=== PATIENT | male | born 1940 | race Caucasian/White ===

== ENCOUNTER 2022-05-27 00:54 | Inpatient (IN) | payer MEDICARE ==
[2022-05-27] MEDS ORDERED: SODIUM CHLORIDE 0.9% 1,000 ML IV STA (01:30)
[2022-05-27] MEDS ORDERED: ONDANSETRON 4 MG/2 ML VIAL IVP STA (01:34)
[2022-05-27] MEDS ORDERED: LORazepam 2 MG/ML INJ IM STA (01:40)
[2022-05-27] MEDS ORDERED: THIAMINE 100 MG/ML 2 ML VIAL IVP STA (02:01)
--- NOTE | 2022-05-27 02:07 | ED ---
Altered Mental Status HPI - General Chief Complaint: Altered Mental Status Stated Complaint: altered mental status Time Seen by Provider: 05/27/22 01:22 Source: patient, family, EMS, RN notes reviewed Mode of arrival: EMS Limitations: altered mental status - History of Present Illness Initial Comments: This is a combat of 81-year-old male with a history of CVA. He presents to the emergency department today via EMS. Apparently his had to call police. Patient has fallen 3 consecutive days according to spouse. She also states that he supposedly stopped drinking 8 days ago. She states she had a half a beer today. She states for the last 3 nights when he got out of bed he has taken a fall. She states that tonight around midnight she went to check on him after the fall and he was having a hard time speaking. She states this went on for about 1 minute. That then resolved. Patient displayed no focal weakness. She states the patient then became belligerent. Patient has sustained multiple superficial skin tears due to frequent falls and being handcuffed by the police. As I enter the room the patient himself has no complaints. He is not complaining of any pain. Patient denying any chest pain or shortness of breath. No headache. No neck pain. Remainder other review of systems is very limited due to the patient's cognition and agitation. MD Complaint: altered mental status, confusion - Related Data Allergies Allergy/AdvReac Type Severity Reaction Status Date / Time No Known Allergies Allergy Verified 05/27/22 01:45 Review of Systems ROS Statement: Those systems with pertinent positive or pertinent negative responses have been documented in the HPI. ROS Other: All systems not noted in ROS Statement are negative. Past Medical History Past Medical History: GERD/Reflux, Hyperlipidemia, Hypertension History of Any Multi-Drug Resistant Organisms: None Reported Past Surgical History: Heart Catheterization With Stent Past Psychological History: No Psychological Hx Reported Smoking Status: Never smoker Past Alcohol Use History: Daily Past Drug Use History: None Reported General Exam - General Exam Comments Initial Comments: Patient appears to be alert. Patient answering questions. Orientation difficult to ascertain. Patient appears to have no focal neurologic deficits. Cranial nerves II through XII are intact. NIH score is 0. Does not appear to be ill or toxic. Patient does become combative at times. Limitations: altered mental status General appearance: alert, other (Agitated, combative) Head exam: Present: atraumatic, normocephalic, normal inspection Eye exam: Present: normal appearance, PERRL, EOMI. Absent: scleral icterus, conjunctival injection, periorbital swelling ENT exam: Present: normal exam, normal oropharynx, mucous membranes moist, normal external ear exam. Absent: mucous membranes dry Neck exam: Present: normal inspection. Absent: tenderness, meningismus, lymphadenopathy Respiratory exam: Present: normal lung sounds bilaterally. Absent: respiratory distress, wheezes, rales, rhonchi, stridor, chest wall tenderness, accessory muscle use, decreased breath sounds, prolonged expiratory Cardiovascular Exam: Present: regular rate, normal rhythm, normal heart sounds. Absent: systolic murmur, diastolic murmur, rubs, gallop, clicks GI/Abdominal exam: Present: soft, normal bowel sounds. Absent: distended, tenderness, guarding, rebound, rigid Extremities exam: Present: full ROM, normal capillary refill, other (Full range of motion all major joints. Full muscle strength on major muscle groups.). Absent: normal inspection (Multiple superficial skin tears noted to both upper extremities.), tenderness, pedal edema, joint swelling, calf tenderness Back exam: Present: normal inspection Neurological exam: Present: alert, CN II-XII intact, other (Combated) Psychiatric exam: Present: agitated Skin exam: Present: warm, dry, normal color. Absent: intact (Multiple skin tears noted), rash Course Vital Signs 05/27/22 05/27/22 05/27/22 01:19 02:25 03:00 Temperature 97.8 F Pulse Rate 91 74 78 Respiratory 19 Rate Blood Pressure 144/79 163/90 185/103 O2 Sat by Pulse 98 96 Oximetry - Reevaluation(s) Reevaluation #1: 05/27/22 03:21 Medical record is reviewed Patient much more calm after 2 mg of Ativan and Haldol 5 mg IM. Note that the patient's troponin was 0.038. We'll run serial troponins. EKG shows no evidence of acute ST elevation or depression. EKG was read by the ED attending physician. There is no comparison study. - Consultations Consultation #1: Case discussed in detail with Anna Irvin from [facility]. Patient admitted to the group with cardiology consultation. I believe the crux of the patient symptomology is related to alcohol withdrawal delirium. Patient did have a slightly elevated troponin. We'll run serial troponins, patient has a rhythm disturbance and EKG. We'll have the patient see his bologna lacer, Dr. Black. Medical Decision Making - Medical Decision Making Patient may be having some level alcohol withdrawal. Patient has a notable generalized tremor noted. No focal neurologic deficits. Patient becomes agitated at times. Patient will require CT scanning of his brain and cervical spine. Patient had some difficulty with speech after a fall. This does raise a suspicion of concussion. Does not sound like the patient had any focal neurologic deficits. Of course brief TIA is within the differential. Alcoholic encephalopathy also within the differential. Thiamine ordered. According to the patient has had tactile disturbances in the hands and feet going on for quite some time. A complete CIWA is difficult to ascertain given the patient's condition. However even given that, the patient scores 11. Patient will be admitted for alcohol withdrawal delirium. I do not believe the patient has any evidence of acute neurologic deficit. Patient's NIH was essentially 0. Patient stopped drinking alcohol 8 days ago but it sounds like he's been intermittently sneaking alcohol. admits that she saw him drink a half a beer yesterday but states that he may have been drinking previous to this. Note that the patient alcohol is less than 10 here today. Patient reported on the alcohol withdrawal protocol. Serial cardiac enzymes reordered. Cardiology consultation will be placed. Note that this patient denied any chest pain. The case was discussed in detail with ED attending physician. Presentation, findings, treatment plan discussed in detail. Supervising physician Dr. Xiao - Lab Data Result diagrams: 05/27/22 02:01 05/27/22 02:01 Lab Results 05/27/22 05/27/22 05/27/22 Range/Units 02:01 02:01 02:01 WBC 8.6 (3.8-10.6) k/uL RBC 3.80 L (4.30-5.90) m/uL Hgb 13.0 (13.0-17.5) gm/dL Hct 35.7 L (39.0-53.0) % MCV 94.0 (80.0-100.0) fL MCH 34.2 (25.0-35.0) pg MCHC 36.3 (31.0-37.0) g/dL RDW 12.1 (11.5-15.5) % Plt Count 137 L (150-450) k/uL MPV 9.4 Neutrophils % 87 % Lymphocytes % 7 % Monocytes % 5 % Eosinophils % 0 % Basophils % 0 % Neutrophils # 7.5 (1.3-7.7) k/uL Lymphocytes # 0.6 L (1.0-4.8) k/uL Monocytes # 0.4 (0-1.0) k/uL Eosinophils # 0.0 (0-0.7) k/uL Basophils # 0.0 (0-0.2) k/uL PT 11.4 (9.0-12.0) sec INR 1.1 (<1.2) APTT 22.0 (22.0-30.0) sec Sodium 133 L (137-145) mmol/L Potassium 3.4 L (3.5-5.1) mmol/L Chloride 96 L (98-107) mmol/L Carbon Dioxide 23 (22-30) mmol/L Anion Gap 14 mmol/L BUN 12 (9-20) mg/dL Creatinine 0.97 (0.66-1.25) mg/dL Est GFR (CKD-EPI)AfAm 84 (>60 ml/min/1.73 sqM) Est GFR (CKD-EPI)NonAf 73 (>60 ml/min/1.73 sqM) Glucose 128 H (74-99) mg/dL Calcium 9.1 (8.4-10.2) mg/dL Magnesium (1.6-2.3) mg/dL Total Bilirubin 1.4 H (0.2-1.3) mg/dL AST 36 (17-59) U/L ALT 18 (4-49) U/L Alkaline Phosphatase 61 (38-126) U/L Ammonia (<30) umol/L Troponin I (0.000-0.034) ng/mL Total Protein 6.8 (6.3-8.2) g/dL Albumin 4.2 (3.5-5.0) g/dL TSH 0.900 (0.465-4.680) mIU/L Urine Color Urine Appearance (Clear) Urine pH (5.0-8.0) Ur Specific [place] (1.001-1.035) Urine Protein (Negative) Urine Glucose (UA) (Negative) Urine Ketones (Negative) Urine Blood (Negative) Urine Nitrite (Negative) Urine Bilirubin (Negative) Urine Urobilinogen (<2.0) mg/dL Ur Leukocyte Esterase (Negative) Urine RBC (0-5) /hpf Urine WBC (0-5) /hpf Ur Squamous Epith Cells (0-4) /hpf Urine Bacteria (None) /hpf Urine Mucus (None) /hpf Urine Opiates Screen (NotDetected) Ur Oxycodone Screen (NotDetected) Urine Methadone Screen (NotDetected) Ur Propoxyphene Screen (NotDetected) Ur Barbiturates Screen (NotDetected) U Tricyclic Antidepress (NotDetected) Ur Phencyclidine Scrn (NotDetected) Ur Amphetamines Screen (NotDetected) U Methamphetamines Scrn (NotDetected) U Benzodiazepines Scrn (NotDetected) Urine Cocaine Screen (NotDetected) U Marijuana (THC) Screen (NotDetected) Serum Alcohol <10 mg/dL 05/27/22 05/27/22 05/27/22 Range/Units 02:01 02:01 02:08 WBC (3.8-10.6) k/uL RBC (4.30-5.90) m/uL Hgb (13.0-17.5) gm/dL Hct (39.0-53.0) % MCV (80.0-100.0) fL MCH (25.0-35.0) pg MCHC (31.0-37.0) g/dL RDW (11.5-15.5) % Plt Count (150-450) k/uL MPV Neutrophils % % Lymphocytes % % Monocytes % % Eosinophils % % Basophils % % Neutrophils # (1.3-7.7) k/uL Lymphocytes # (1.0-4.8) k/uL Monocytes # (0-1.0) k/uL Eosinophils # (0-0.7) k/uL Basophils # (0-0.2) k/uL PT (9.0-12.0) sec INR (<1.2) APTT (22.0-30.0) sec Sodium (137-145) mmol/L Potassium (3.5-5.1) mmol/L Chloride (98-107) mmol/L Carbon Dioxide (22-30) mmol/L Anion Gap mmol/L BUN (9-20) mg/dL Creatinine (0.66-1.25) mg/dL Est GFR (CKD-EPI)AfAm (>60 ml/min/1.73 sqM) Est GFR (CKD-EPI)NonAf (>60 ml/min/1.73 sqM) Glucose (74-99) mg/dL Calcium (8.4-10.2) mg/dL Magnesium 1.4 L (1.6-2.3) mg/dL Total Bilirubin (0.2-1.3) mg/dL AST (17-59) U/L ALT (4-49) U/L Alkaline Phosphatase (38-126) U/L Ammonia <9 (<30) umol/L Troponin I 0.038 H* (0.000-0.034) ng/mL Total Protein (6.3-8.2) g/dL Albumin (3.5-5.0) g/dL TSH (0.465-4.680) mIU/L Urine Color Urine Appearance (Clear) Urine pH (5.0-8.0) Ur Specific [place] (1.001-1.035) Urine Protein (Negative) Urine Glucose (UA) (Negative) Urine Ketones (Negative) Urine Blood (Negative) Urine Nitrite (Negative) Urine Bilirubin (Negative) Urine Urobilinogen (<2.0) mg/dL Ur Leukocyte Esterase (Negative) Urine RBC (0-5) /hpf Urine WBC (0-5) /hpf Ur Squamous Epith Cells (0-4) /hpf Urine Bacteria (None) /hpf Urine Mucus (None) /hpf Urine Opiates Screen (NotDetected) Ur Oxycodone Screen (NotDetected) Urine Methadone Screen (NotDetected) Ur Propoxyphene Screen (NotDetected) Ur Barbiturates Screen (NotDetected) U Tricyclic Antidepress (NotDetected) Ur Phencyclidine Scrn (NotDetected) Ur Amphetamines Screen (NotDetected) U Methamphetamines Scrn (NotDetected) U Benzodiazepines Scrn (NotDetected) Urine Cocaine Screen (NotDetected) U Marijuana (THC) Screen (NotDetected) Serum Alcohol mg/dL 05/27/22 05/27/22 Range/Units 02:18 02:18 WBC (3.8-10.6) k/uL RBC (4.30-5.90) m/uL Hgb (13.0-17.5) gm/dL Hct (39.0-53.0) % MCV (80.0-100.0) fL MCH (25.0-35.0) pg MCHC (31.0-37.0) g/dL RDW (11.5-15.5) % Plt Count (150-450) k/uL MPV Neutrophils % % Lymphocytes % % Monocytes % % Eosinophils % % Basophils % % Neutrophils # (1.3-7.7) k/uL Lymphocytes # (1.0-4.8) k/uL Monocytes # (0-1.0) k/uL Eosinophils # (0-0.7) k/uL Basophils # (0-0.2) k/uL PT (9.0-12.0) sec INR (<1.2) APTT (22.0-30.0) sec Sodium (137-145) mmol/L Potassium (3.5-5.1) mmol/L Chloride (98-107) mmol/L Carbon Dioxide (22-30) mmol/L Anion Gap mmol/L BUN (9-20) mg/dL Creatinine (0.66-1.25) mg/dL Est GFR (CKD-EPI)AfAm (>60 ml/min/1.73 sqM) Est GFR (CKD-EPI)NonAf (>60 ml/min/1.73 sqM) Glucose (74-99) mg/dL Calcium (8.4-10.2) mg/dL Magnesium (1.6-2.3) mg/dL Total Bilirubin (0.2-1.3) mg/dL AST (17-59) U/L ALT (4-49) U/L Alkaline Phosphatase (38-126) U/L Ammonia (<30) umol/L Troponin I (0.000-0.034) ng/mL Total Protein (6.3-8.2) g/dL Albumin (3.5-5.0) g/dL TSH (0.465-4.680) mIU/L Urine Color Light Yellow Urine Appearance Clear (Clear) Urine pH 6.0 (5.0-8.0) Ur Specific [place] 1.009 (1.001-1.035) Urine Protein 1+ H (Negative) Urine Glucose (UA) Trace H (Negative) Urine Ketones Trace H (Negative) Urine Blood Small H (Negative) Urine Nitrite Negative (Negative) Urine Bilirubin Negative (Negative) Urine Urobilinogen <2.0 (<2.0) mg/dL Ur Leukocyte Esterase Negative (Negative) Urine RBC 6 H (0-5) /hpf Urine WBC 2 (0-5) /hpf Ur Squamous Epith Cells 1 (0-4) /hpf Urine Bacteria Rare H (None) /hpf Urine Mucus Rare H (None) /hpf Urine Opiates Screen Not Detected (NotDetected) Ur Oxycodone Screen Not Detected (NotDetected) Urine Methadone Screen Not Detected (NotDetected) Ur Propoxyphene Screen Not Detected (NotDetected) Ur Barbiturates Screen Not Detected (NotDetected) U Tricyclic Antidepress Not Detected (NotDetected) Ur Phencyclidine Scrn Not Detected (NotDetected) Ur Amphetamines Screen Not Detected (NotDetected) U Methamphetamines Scrn Not Detected (NotDetected) U Benzodiazepines Scrn Not Detected (NotDetected) Urine Cocaine Screen Not Detected (NotDetected) U Marijuana (THC) Screen Not Detected (NotDetected) Serum Alcohol mg/dL - EKG Data EKG Comments: EKG done at 303 AM and read by the ED attending physician reveals rhythm disturbance patient appears to have consistent R-R interval aside from 2 complexes which may have to leaving P waves indicative of a Mobitz type II intermittent block. EKG interpretation shows atrial fibrillation although this is not appear to be consistent with that. Remainder of the intervals are normal. Left axis deviation. The RSR pattern in aVR and a nonpathological Q- wave in lead 2. Notched R waves in lead V6. Disposition Clinical Impression: Alcohol withdrawal delirium, Altered mental status, Elevated troponin, Hypokalemia, Agitation, Multiple abrasions, Uncontrolled hypertension Disposition: ADMITTED IP TO THIS [facility] Condition: Fair Time of Disposition: 02:22 Decision to Admit Reason: Admit from EC Decision Time: 02:22
[2022-05-27 02:10] LABS: Basophils % (A) 0 %; Eosinophils % (A) 0 %; HCT 35.7 % (39.0-53.0); Lymphocytes # (A) 0.6 k/uL (1.0-4.8); Lymphocytes % (A) 7 %; MCH 34.2 pg (25.0-35.0); MCHC 36.3 g/dL (31.0-37.0); Mean Platelet Volume 9.4; Monocytes # (A) 0.4 k/uL (0-1.0); Monocytes % (A) 5 %; Neutrophils # (A) 7.5 k/uL (1.3-7.7); Neutrophils % (A) 87 %; Platelet Count 137 k/uL (150-450); RDW 12.1 % (11.5-15.5); WBC 8.6 k/uL (3.8-10.6)
[2022-05-27 02:24] LABS: INR 1.1 (<1.2); Prothrombin Time 11.4 sec (9.0-12.0)
[2022-05-27 02:26] LABS: ALT 18 U/L (4-49); AST 36 U/L (17-59); African American GFR (CKD) 84 (>60 ml/min/1.73 sqM); Albumin 4.2 g/dL (3.5-5.0); Alcohol <10 mg/dL; Alkaline Phosphatase 61 U/L (38-126); Anion Gap 14 mmol/L; Blood Urea Nitrogen 12 mg/dL (9-20); Calcium 9.1 mg/dL (8.4-10.2); Carbon Dioxide 23 mmol/L (22-30); Chloride 96 mmol/L (98-107); Glucose 128 mg/dL (74-99); Non-African American GFR(CKD) 73 (>60 ml/min/1.73 sqM); Potassium 3.4 mmol/L (3.5-5.1); Sodium 133 mmol/L (137-145); Total Bilirubin 1.4 mg/dL (0.2-1.3); Total Protein 6.8 g/dL (6.3-8.2)
[2022-05-27] MEDS ORDERED: HALOPERIDOL LACTATE 5 MG/ML 1 ML VIAL IM STA (02:26)
[2022-05-27 02:38] LABS: Appearance,Urine Clear (Clear); Bacteria,Urine Rare /hpf; Bilirubin,Urine Negative (Negative); Blood,Urine Small (Negative); Color,Urine Light Yellow; Glucose,Urine (UA) Trace (Negative); Ketones,Urine Trace (Negative); Leukocyte Esterase,Urine Negative (Negative); Mucus,Urine Rare /hpf; Nitrite,Urine Negative (Negative); Protein,Urine 1+ (Negative); RBC,Urine 6 /hpf (0-5); Specific Gravity,Urine 1.009 (1.001-1.035); Squamous Epithelial Cell,Urine 1 /hpf (0-4); Urobilinogen,Urine <2.0 mg/dL (<2.0); WBC,Urine 2 /hpf (0-5)
[2022-05-27 02:47] LABS: Amphetamine Screen,Urine Not Detected (NotDetected); Barbiturate Screen,Urine Not Detected (NotDetected); Benzodiazepines Screen,Urine Not Detected (NotDetected); Cocaine Screen,Urine Not Detected (NotDetected); Methadone Screen, Urine Not Detected (NotDetected); Opiate Screen,Urine Not Detected (NotDetected); Oxycodone Screen, Urine Not Detected (NotDetected); Phencyclidine Screen,Urine Not Detected (NotDetected); Tricyclic Antidepressant,Urine Not Detected (NotDetected); Urn Cannabinoid Scrn Not Detected (NotDetected)
[2022-05-27] MEDS ORDERED: MAGNESIUM SULFATE-D5W PMX 1 GM in DEXTROSE/WATER 1 100ML.BAG IVPB ONE (02:50)
--- NOTE | 2022-05-27 03:20 | CT ---
EXAMINATION TYPE: CT brain wo con DATE OF EXAM: 05/27/2022 COMPARISON: None HISTORY: Confusion, altered mental status. no prior on PACS. CT DLP: 1568 mGycm Automated exposure control for dose reduction was used. Images of the brain obtained without contrast. There is cerebral cortical atrophy. There is hypodensity in the periventricular white matter. There i s enlargement of the ventricles. The calvarium is intact. There is normal aeration of the mastoid sin uses. No evidence of intracranial hemorrhage. IMPRESSION: Cerebral atrophy and chronic small vessel ischemia. Hydrocephalus. No acute intracranial abnormality.
[2022-05-27] MEDS ORDERED: ONDANSETRON 4 MG/2 ML VIAL IVP PRN (03:27)
[2022-05-27] MEDS ORDERED: NALOXONE 0.4 MG/ML 1 ML VIAL IV PRN (03:27)
--- NOTE | 2022-05-27 03:37 | CT ---
EXAMINATION TYPE: CT angio head neck DATE OF EXAM: 05/27/2022 COMPARISON: None HISTORY: Confusion, altered mental status. no prior on PACS. CT DLP: 1568 mGycm Automated exposure control for dose reduction was used. CONTRAST: Performed with IV Contrast, patient injected with 65ml mL of Isovue 370. Images of the head and neck obtained from the aortic arch to the vertex of the brain with the IV cont rast and Three-D postprocessed images. Exam limited by motion. There is normal branching pattern of the great vessels on the aortic arch. There is bilateral arteria l flow in the subclavian arteries. There is arterial flow in the common internal and external carotid arteries bilaterally. There is arterial flow in both vertebral arteries. Unfortunately there is sign ificant motion artifact in the distal cervical internal carotid and vertebral arteries bilaterally. T here is arterial flow in the vertebrobasilar artery system. Basilar artery appears normal. The caroti d artery bifurcations appear to be widely patent. No sign of aneurysm or dissection. There is arterial flow in the anterior middle and posterior cerebral arteries. No evidence of intracr anial hemodynamic arterial stenosis. No mass effect. No evidence of aneurysm or neovascularity. There is normal enhancement of the venous sinuses. IMPRESSION: Within the limitations of the exam no significant intracranial or extracranial angiographic abnormali ty. No evidence of hemodynamic stenosis.
--- NOTE | 2022-05-27 03:39 | XR ---
EXAMINATION TYPE: XR chest 1V portable DATE OF EXAM: 05/27/2022 COMPARISON: NONE HISTORY: Altered mental status TECHNIQUE: Single view FINDINGS: There is no heart failure nor confluent pneumonic infiltrate. Costophrenic angles are clear . Thoracic aorta is atheromatous. No pleural effusion. Bony thorax is intact. IMPRESSION: No active cardiopulmonary disease.
[2022-05-27] MEDS: POTASSIUM CHLORIDE 10 MEQ in WATER FOR INJECTION 1 100ML.BAG IVPB SCH ×2 (03:55→04:17)
[2022-05-27] MEDS ORDERED: BACITRACIN OINT 1 EACH PACKET TOPICAL ONE (04:00)
[2022-05-27] MEDS ORDERED: METOPROLOL TARTRATE 5 MG/5 ML VIAL IVP STA (04:02)
[2022-05-27] MEDS: LORazepam 2 MG/ML INJ IV PRN ×2 (04:11→15:07)
[2022-05-27] MEDS: SODIUM CHLORIDE 0.9% 1,000 ML IV SCH ×2 (04:16→21:32)
[2022-05-27 08:23] LABS: Phosphorus 3.1 mg/dL (2.5-4.5)
[2022-05-27] MEDS: MULTIVITAMINS, THERA 1 EACH TAB PO SCH (10:23)
[2022-05-27] MEDS: HEPARIN SODIUM,PORCINE/PF 5,000 UNIT/0.5 ML SYRINGE SQ SCH ×2 (10:26→21:32)
[2022-05-27] MEDS: FOLIC ACID 1 MG TAB PO SCH (10:26)
[2022-05-27] MEDS: MAGNESIUM SULFATE-D5W PMX 1 GM in DEXTROSE/WATER 1 100ML.BAG IVPB SCH ×2 (11:58→14:04)
[2022-05-27] MEDS: THIAMINE 100 MG TAB PO SCH (16:36)
[2022-05-27] MEDS: LORazepam 1 MG/0.5 ML VIAL IV PRN ×2 (20:26→21:32)
--- NOTE | 2022-05-27 20:55 | CONS ---
CONSULTATION HISTORY OF PRESENT ILLNESS: Og is an 81-year-old gentleman, who is admitted to hospital with progressively worsening confusion at home. He has history of coronary artery disease, status post prior angioplasty; hypertension; dyslipidemia; peripheral arterial disease; and has history of carotid stenosis, for which he underwent carotid endarterectomy. He apparently usually drinks every day and about 8 days ago he suddenly stop drinking. Currently, the working hypothesis is that patient is going through alcohol withdrawal. We have been consulted because they checked a troponin that came back elevated at 0.03 and 0.07. I am not able to obtain any meaningful information from the patient, who appears confused. He is not combative. He has known CAD and has had prior angioplasty of mid LAD, proximal OM, and mid right coronary artery. Most recent echocardiogram was in March 2020 that revealed normal LV systolic function. The patient is currently being treated for alcohol withdrawal. I will obtain a 2D echo to evaluate his LV function and wall motion. The exact etiology for the elevated troponins is unclear. He is not a candidate for any invasive procedures at this time. I will treat him with optimal medical therapy once the alcohol withdrawal symptoms or whatever the cause of his altered sensorium is investigated further and has been addressed approximately. PAST MEDICAL HISTORY: Significant for coronary artery disease, status post multivessel angioplasty; hypertension; dyslipidemia; and peripheral arterial disease. MEDICATIONS: At home include: 1. Aspirin. 2. Lipitor 20 mg daily. 3. Lisinopril 10 mg daily. 4. Metoprolol 50 mg daily. 5. Zetia. 6. Prilosec. 7. Fish oil. FAMILY HISTORY: I am unable to obtain from the patient who is confused. SOCIAL HISTORY: I am unable to obtain from the patient who is confused. REVIEW OF SYSTEMS: I am unable to obtain from the patient who is confused. PHYSICAL EXAMINATION: GENERAL: Comfortable at rest. VITAL SIGNS: Heart rate is 72 beats per minute, blood pressure is 140/92, respiratory rate 18. O2 saturation is 97% on room air. NECK: There is no jugular venous distention. Carotid upstroke is normal. There is no bruit. CHEST: Reveals good air entry bilaterally. HEART: Reveals first and second heart sounds. No gallop. No murmur. ABDOMEN: Soft. EXTREMITIES: Did not reveal any edema. Peripheral pulses are felt. LABORATORY DATA: Showed a hemoglobin of 13, platelet count is 137. Potassium is 3.4, creatinine is 0.9. Troponins are elevated. ASSESSMENT: 1. Confusional state, could be related to alcohol withdrawal. Workup and treatment per primary. 2. Elevated troponin related to underlying ischemic heart disease, could represent non- ST segment elevation myocardial infarction. I will obtain a 12-lead EKG and an echocardiogram and when the confusion resolves, I will investigate this further. MMODL / IJN: [id number] /
--- NOTE | 2022-05-27 23:09 | P.HPIM ---
History of Present Illness H&P Date: 05/27/22 Patient is 81-year-old male with a known history of coronary artery disease status post stent placement, daily alcohol use, hypertension, hyperlipidemia, GERD was brought to the hospital by EMS. Patient's called the police after he has fallen consistently for the past 3 days. According to his patient stopped drinking about 8 days ago. He did not drink half a beer yesterday. Patient's states that last 3 days he got out of bed and has taken a fall. Last night around midnight she went to check on him after the fall and he was having a hard time speaking. And after 1 minute it resolved but did not notice any facial droop or for new focal weakness. Patient then became agitated and handcuffed by police and was brought to the hospital. Currently patient is sedated due to alcohol withdrawal symptoms and could not provide any history. Laboratory test showed WBC 8.6 hemoglobin 13.0 and platelets 137 Sodium 133 potassium 3.4 chloride 96 bicarb is 23 BUN 12 and creatinine 0.97 and magnesium 1.4. Ammonia less than 9 Troponin 0.038, 0.0790.088 TSH 0.900 Urinalysis shows trace glucose and ketones. UDS negative Serum alcohol level is less than 10. CT brain showed cerebral atrophy and chronic small vessel ischemia. Hydrocephalus. No acute intracranial abnormality. CT angiogram showed within the normal limits of the exam no significant intracranial extracranial angiographic abnormality. No evidence of hemodynamic stenosis. Chest x-ray showed no acute cardiopulmonary disease. Acute alcohol withdrawal symptoms. Patient stopped drinking about 8 days ago. History of multiple falls during the last 3 days Elevated troponin level possible NSTEMI cannot be excluded. Coronary disease history of stent placement Hypokalemia and hypomagnesemia Hypovolemic hyponatremia Uncontrolled hypertension Daily alcohol use DVT prophylax with heparin subcu Plan: Patient recommended on telemetry monitoring. Follow-up serial cardiac enzymes and EKG. 2D echocardiogram was ordered and cardiology is on board. Continue with IV hydration and alcohol withdrawal protocol. Thiamine and multivitamins and follow-up closely. Patient will be started back on home medications. We will hold hydrochlorothiazide. Continue to follow closely. Prognosis is guarded at this time. Past Medical History Past Medical History: GERD/Reflux, Hyperlipidemia, Hypertension History of Any Multi-Drug Resistant Organisms: None Reported Past Surgical History: Heart Catheterization With Stent Past Psychological History: No Psychological Hx Reported Smoking Status: Never smoker Past Alcohol Use History: Daily Past Drug Use History: None Reported Medications and Allergies Home Medications Medication Instructions Recorded Confirmed Type Aspirin EC [Ecotrin Low Dose] 81 mg PO DAILY 05/27/22 05/27/22 History Atorvastatin [Lipitor] 20 mg PO Q48H 05/27/22 05/27/22 History Ezetimibe [Zetia] 10 mg PO DAILY 05/27/22 05/27/22 History Fish Oil/Dha/Epa [Fish Oil 1,200 1 cap PO DAILY 05/27/22 05/27/22 History mg Fish Oil] Metoprolol Tartrate [Lopressor] 50 mg PO DAILY 05/27/22 05/27/22 History Omeprazole 20 mg PO DAILY 05/27/22 05/27/22 History hydroCHLOROthiazide [Hydrodiuril] 25 mg PO DAILY 05/27/22 05/27/22 History lisinopriL [Zestril] 5 mg PO DAILY 05/27/22 05/27/22 History Allergies Allergy/AdvReac Type Severity Reaction Status Date / Time No Known Allergies Allergy Verified 05/27/22 11:27 Physical Exam Vitals: Vital Signs Temp Pulse Pulse Resp BP BP Pulse Ox 05/27/22 08:00 72 18 141/92 97 05/27/22 05:00 98.9 F 84 15 170/54 96 05/27/22 04:26 87 131/98 97 05/27/22 04:16 91 139/68 05/27/22 03:26 98.6 F 91 17 139/68 94 L 05/27/22 03:00 78 185/103 05/27/22 02:25 97.8 F 74 19 163/90 96 05/27/22 01:19 91 144/79 98 Intake and Output 05/26/22 05/27/22 05/27/22 22:59 06:59 14:59 Other: Weight 76.7 kg Results CBC & Chem 7: 05/27/22 02:01 05/27/22 02:01 Labs: Abnormal Lab Results - Last 24 Hours (Table) 05/27/22 05/27/22 05/27/22 Range/Units 02:01 02:01 02:01 RBC 3.80 L (4.30-5.90) m/uL Hct 35.7 L (39.0-53.0) % Plt Count 137 L (150-450) k/uL Lymphocytes # 0.6 L (1.0-4.8) k/uL Sodium 133 L (137-145) mmol/L Potassium 3.4 L (3.5-5.1) mmol/L Chloride 96 L (98-107) mmol/L Glucose 128 H (74-99) mg/dL Magnesium (1.6-2.3) mg/dL Total Bilirubin 1.4 H (0.2-1.3) mg/dL Troponin I 0.038 H* (0.000-0.034) ng/mL Urine Protein (Negative) Urine Glucose (UA) (Negative) Urine Ketones (Negative) Urine Blood (Negative) Urine RBC (0-5) /hpf Urine Bacteria (None) /hpf Urine Mucus (None) /hpf 05/27/22 05/27/22 05/27/22 Range/Units 02:01 02:18 06:59 RBC (4.30-5.90) m/uL Hct (39.0-53.0) % Plt Count (150-450) k/uL Lymphocytes # (1.0-4.8) k/uL Sodium (137-145) mmol/L Potassium (3.5-5.1) mmol/L Chloride (98-107) mmol/L Glucose (74-99) mg/dL Magnesium 1.4 L (1.6-2.3) mg/dL Total Bilirubin (0.2-1.3) mg/dL Troponin I 0.079 H* (0.000-0.034) ng/mL Urine Protein 1+ H (Negative) Urine Glucose (UA) Trace H (Negative) Urine Ketones Trace H (Negative) Urine Blood Small H (Negative) Urine RBC 6 H (0-5) /hpf Urine Bacteria Rare H (None) /hpf Urine Mucus Rare H (None) /hpf
[2022-05-28] MEDS: lisinopriL 5 MG TAB PO SCH ×2 (00:07→08:21)
[2022-05-28] MEDS: LORazepam 1 MG/0.5 ML VIAL IV PRN ×9 (00:42→23:19)
[2022-05-28] MEDS: FOLIC ACID 1 MG TAB PO SCH (08:21)
[2022-05-28] MEDS: MULTIVITAMINS, THERA 1 EACH TAB PO SCH (08:21)
[2022-05-28] MEDS: EZETIMIBE 10 MG TAB PO SCH (08:21)
[2022-05-28] MEDS: METOPROLOL TARTRATE 50 MG TAB PO SCH (08:21)
[2022-05-28] MEDS: THIAMINE 100 MG TAB PO SCH (08:21)
[2022-05-28] MEDS: ATORVASTATIN 20 MG TAB PO SCH (08:21)
[2022-05-28] MEDS: ASPIRIN 81 MG PO SCH (08:21)
[2022-05-28] MEDS: HEPARIN SODIUM,PORCINE/PF 5,000 UNIT/0.5 ML SYRINGE SQ SCH ×2 (08:22→21:14)
[2022-05-28] MEDS: SODIUM CHLORIDE 0.9% 1,000 ML IV SCH ×2 (08:22→15:52)
[2022-05-28 08:27] LABS: African American GFR (CKD) >90 (>60 ml/min/1.73 sqM); Anion Gap 10 mmol/L; Blood Urea Nitrogen 10 mg/dL (9-20); Calcium 8.5 mg/dL (8.4-10.2); Carbon Dioxide 26 mmol/L (22-30); Chloride 99 mmol/L (98-107); Creatine Kinase 192 U/L (55-170); Glucose 95 mg/dL (74-99); Magnesium 2.1 mg/dL (1.6-2.3); Non-African American GFR(CKD) 81 (>60 ml/min/1.73 sqM); Potassium 3.7 mmol/L (3.5-5.1); Sodium 135 mmol/L (137-145)
[2022-05-28 08:29] LABS: Basophils % (A) 0 %; Eosinophils # (A) 0.1 k/uL (0-0.7); Eosinophils % (A) 1 %; HCT 45.5 % (39.0-53.0); Lymphocytes # (A) 1.8 k/uL (1.0-4.8); Lymphocytes % (A) 21 %; MCHC 35.2 g/dL (31.0-37.0); MCV 96.9 fL (80.0-100.0); Monocytes # (A) 0.5 k/uL (0-1.0); Monocytes % (A) 5 %; Neutrophils % (A) 70 %; Platelet Count 148 k/uL (150-450); RBC 4.69 m/uL (4.30-5.90); RDW 12.4 % (11.5-15.5); WBC 8.6 k/uL (3.8-10.6)
[2022-05-28] MEDS: PANTOPRAZOLE 40 MG TABLET PO SCH (08:40)
[2022-05-28] MEDS ORDERED: NON FORMULARY DRUG (Fish Oil/Dha/Epa [Fish Oil 1,200 Mg Fish Oil] 1 EACH Capsule) PO SCH (09:00)
[2022-05-28] MEDS ORDERED: lisinopriL 5 MG TAB PO STA (09:40)
[2022-05-28] MEDS ORDERED: hydrALAZINE HCL 20 MG/ML 1 ML VIAL IVP STA (12:22)
--- NOTE | 2022-05-28 12:27 | P.PN ---
Subjective This is an 81-year-old male with a past medical history of coronary disease status post PCI to the mid RCA and proximal and proximal OM1 1996, PCI mid LAD in 2007, hypertensino, dyslipidemia, daily alcohol use. He follows with Dr. Black. We have been consulted for elevated troponin. Patient presented to the ER with altered mental status and possible alcohol withdrawal. 05/28/2022 Patient seen and examined at bedside, continues to be confused. He is alert, oriented to person only. He denies any complaints of pain. He denies any shortness of breath or chest pain. Echocardiogram is pending. Blood pressure elevated 199/93, heart rate 69. He is currently on lisinopril 5 mg daily, metoprolol titrate 50 mg daily. Telemetry reviewed patient sinus rhythm heart rate 60s70s with PVCs. GENERAL: Confused. No acute distress. NECK: Supple without JVD or thyromegaly. LUNGS: Breath sounds clear to auscultation bilaterally. Respiration equal and unlabored. No wheezes, rales or rhonchi. HEART: Regular rate and rhythm without murmurs, rubs or gallops. S1 and S2 heard. EXTREMITIES: Normal range of motion, no edema. No clubbing or cyanosis. Peripheral pulses intact. ASSESSMENT Altered mental status, could be related to alcohol withdrawal Elevated troponin related to underlying ischemic heart disease, could represent NSTEMI, no acute EKG changes. Echocardiogram pending. Coronary disease status post PCI to the mid RCA and proximal and proximal OM1 1996, PCI mid LAD in 2007 Hypertension Dyslipidemia Daily alcohol use PLAN Obtain 2-D echocardiogram Increase lisinopril Continue aspirin and statin, beta yolanda, zetia Further recommendations based on clinical course Nurse Practitioner note has been reviewed, I agree with a documented findings and plan of care. Patient was seen and examined. Objective - Vital Signs Vital signs: Vital Signs Temp 98.9 F 05/27/22 05:00 Pulse 82 05/27/22 10:00 Resp 19 05/27/22 10:00 BP 141/69 05/27/22 10:00 Pulse Ox 99 05/27/22 10:00 FiO2 Intake & Output 05/26/22 05/27/22 05/27/22 18:59 06:59 18:59 Weight 76.7 kg - Labs CBC & Chem 7: 05/28/22 07:38 05/28/22 07:38 Labs: Abnormal Lab Results - Last 24 Hours (Table) 05/27/22 05/27/22 05/27/22 Range/Units 02:01 02:01 02:01 RBC 3.80 L (4.30-5.90) m/uL Hct 35.7 L (39.0-53.0) % Plt Count 137 L (150-450) k/uL Lymphocytes # 0.6 L (1.0-4.8) k/uL Sodium 133 L (137-145) mmol/L Potassium 3.4 L (3.5-5.1) mmol/L Chloride 96 L (98-107) mmol/L Glucose 128 H (74-99) mg/dL Magnesium (1.6-2.3) mg/dL Total Bilirubin 1.4 H (0.2-1.3) mg/dL Troponin I 0.038 H* (0.000-0.034) ng/mL Urine Protein (Negative) Urine Glucose (UA) (Negative) Urine Ketones (Negative) Urine Blood (Negative) Urine RBC (0-5) /hpf Urine Bacteria (None) /hpf Urine Mucus (None) /hpf 05/27/22 05/27/22 05/27/22 Range/Units 02:01 02:18 06:59 RBC (4.30-5.90) m/uL Hct (39.0-53.0) % Plt Count (150-450) k/uL Lymphocytes # (1.0-4.8) k/uL Sodium (137-145) mmol/L Potassium (3.5-5.1) mmol/L Chloride (98-107) mmol/L Glucose (74-99) mg/dL Magnesium 1.4 L (1.6-2.3) mg/dL Total Bilirubin (0.2-1.3) mg/dL Troponin I 0.079 H* (0.000-0.034) ng/mL Urine Protein 1+ H (Negative) Urine Glucose (UA) Trace H (Negative) Urine Ketones Trace H (Negative) Urine Blood Small H (Negative) Urine RBC 6 H (0-5) /hpf Urine Bacteria Rare H (None) /hpf Urine Mucus Rare H (None) /hpf 05/27/22 Range/Units 10:16 RBC (4.30-5.90) m/uL Hct (39.0-53.0) % Plt Count (150-450) k/uL Lymphocytes # (1.0-4.8) k/uL Sodium (137-145) mmol/L Potassium (3.5-5.1) mmol/L Chloride (98-107) mmol/L Glucose (74-99) mg/dL Magnesium (1.6-2.3) mg/dL Total Bilirubin (0.2-1.3) mg/dL Troponin I 0.088 H* (0.000-0.034) ng/mL Urine Protein (Negative) Urine Glucose (UA) (Negative) Urine Ketones (Negative) Urine Blood (Negative) Urine RBC (0-5) /hpf Urine Bacteria (None) /hpf Urine Mucus (None) /hpf
--- NOTE | 2022-05-28 12:52 | CA ---
Transthoracic Echo Report Name: Og Mckeon Age: 81 Gender: M : 1940 Exam Date: 05/28/2022 08:56 Exam Location: [facility] Ht (in): 70 Wt (lb): 169 Ordering Physician: Angelica Hennessy Attending/Referring Phys: Inside Technical Sales Representative Celina Killian RDCS Procedure CPT: Indications: elevated troponin Cardiac Hx: Technical Quality: Fair Contrast 1: Total Dose (mL): Contrast 2: Total Dose (mL): MEASUREMENTS (Male / Female) Normal Values 2D ECHO LV Diastolic Diameter PLAX 4.4 cm 4.2 - 5.9 / 3.9 - 5.3 cm LV Systolic Diameter PLAX 2.8 cm IVS Diastolic Thickness 1.1 cm 0.6 - 1.0 / 0.6 - 0.9 cm LVPW Diastolic Thickness 1.3 cm 0.6 - 1.0 / 0.6 - 0.9 cm LV Relative Wall Thickness 0.5 RV Internal Dim ED PLAX 3.1 cm LA Systolic Diameter LX 3.6 cm 3.0 - 4.0 / 2.7 - 3.8 cm LA Volume 40.1 cm??? 18 - 58 / 22 - 52 cm??? M-MODE Aortic Root Diameter MM 3.6 cm MV E Point Septal Separation 0.6 cm AV Cusp Separation MM 1.7 cm DOPPLER AV Peak Velocity 137.5 cm/s AV Peak Gradient 7.6 mmHg MV Area PHT 3.0 cm??? Mitral E Point Velocity 51.9 cm/s Mitral A Point Velocity 75.3 cm/s Mitral E to A Ratio 0.7 MV Deceleration Time 251.9 ms MV E' Velocity 4.5 cm/s Mitral E to MV E' Ratio 11.4 FINDINGS Left Ventricle Left ventricular ejection fraction is estimated at 55-60 %. Left ventricular cavity size normal. Mild concentric left ventricular hypertrophy. Right Ventricle Normal right ventricular size and function. Unable to estimate the right ventricular systolic pressure. Right Atrium Normal right atrial size. Left Atrium Normal left atrial size. No evidence for an atrial septal defect. Mitral Valve Mitral annular calcification. Mild mitral regurgitation. Aortic Valve Focal thickening of the aortic valve cusps. Tricuspid Valve Structurally normal tricuspid valve. Pulmonic Valve Pulmonic valve not well visualized. Pericardium Normal pericardium. No pericardial effusion. Aorta Normal size aortic root and proximal ascending aorta. CONCLUSIONS Technically difficult study for interpretation Normal left ventricular systolic function Previewed by: Dr. Compa Stone MD (Electronically Signed) Final Date: 28 May 2022 12:51
[2022-05-28 13:36] VITALS: BMI 24.3
--- NOTE | 2022-05-28 16:03 | P.GSCN ---
History of Present Illness History of present illness: 81-year-old white male known to me from the past patient was brought into the emergency room by the police he has been Handcuffed also has history of drinking and also a history of fall. I was consulted patient has a superficial wound on the left arm forearm and dorsum aspect patient had a CTA of the carotid within normal limit On examination patient seen in his room in comfortably in bed neck is supple no bruit appreciated Chest is clear good entry both lungs first second sound present Abdomen is soft nontender Vascular femorals brachial pulses are present patient has a wound on the left forearm and wrist 3 x 2 and 2 x 2 CM with skin loss Plan is superficial debridement and placement of X a silver 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 History of Any Multi-Drug Resistant Organisms: None Reported Past Surgical History: Heart Catheterization With Stent Date of Last Stent Placement:: 2007 Past Psychological History: No Psychological Hx Reported Smoking Status: Never smoker Past Alcohol Use History: Daily Past Drug Use History: None Reported Medications and Allergies Home Medications Medication Instructions Recorded Confirmed Type Aspirin EC [Ecotrin Low Dose] 81 mg PO DAILY 05/27/22 05/27/22 History Atorvastatin [Lipitor] 20 mg PO Q48H 05/27/22 05/27/22 History Ezetimibe [Zetia] 10 mg PO DAILY 05/27/22 05/27/22 History Fish Oil/Dha/Epa [Fish Oil 1,200 1 cap PO DAILY 05/27/22 05/27/22 History mg Fish Oil] Metoprolol Tartrate [Lopressor] 50 mg PO DAILY 05/27/22 05/27/22 History Omeprazole 20 mg PO DAILY 05/27/22 05/27/22 History hydroCHLOROthiazide [Hydrodiuril] 25 mg PO DAILY 05/27/22 05/27/22 History lisinopriL [Zestril] 5 mg PO DAILY 05/27/22 05/27/22 History Allergies Allergy/AdvReac Type Severity Reaction Status Date / Time No Known Allergies Allergy Verified 05/27/22 11:27 Surgical - Exam Vital Signs Pulse BP Pulse Ox 91 144/79 98 05/27/22 01:19 05/27/22 01:19 05/27/22 01:19 Results - Labs 05/28/22 07:38 05/28/22 07:38 Abnormal Lab Results - Last 24 Hours (Table) 05/28/22 05/28/22 Range/Units 07:38 07:38 Plt Count 148 L (150-450) k/uL Sodium 135 L (137-145) mmol/L Creatine Kinase 192 H (55-170) U/L Diabetes panel 05/28/22 Range/Units 07:38 Sodium 135 L (137-145) mmol/L Potassium 3.7 (3.5-5.1) mmol/L Chloride 99 (98-107) mmol/L Carbon Dioxide 26 (22-30) mmol/L BUN 10 (9-20) mg/dL Creatinine 0.87 (0.66-1.25) mg/dL Glucose 95 (74-99) mg/dL Calcium 8.5 (8.4-10.2) mg/dL Thyroid panel 05/28/22 Range/Units 07:38 TSH 1.730 (0.465-4.680) mIU/L Calcium panel 05/28/22 Range/Units 07:38 Calcium 8.5 (8.4-10.2) mg/dL Pituitary panel 05/28/22 Range/Units 07:38 Sodium 135 L (137-145) mmol/L Potassium 3.7 (3.5-5.1) mmol/L Chloride 99 (98-107) mmol/L Carbon Dioxide 26 (22-30) mmol/L BUN 10 (9-20) mg/dL Creatinine 0.87 (0.66-1.25) mg/dL Glucose 95 (74-99) mg/dL Calcium 8.5 (8.4-10.2) mg/dL TSH 1.730 (0.465-4.680) mIU/L Adrenal panel 05/28/22 Range/Units 07:38 Sodium 135 L (137-145) mmol/L Potassium 3.7 (3.5-5.1) mmol/L Chloride 99 (98-107) mmol/L Carbon Dioxide 26 (22-30) mmol/L BUN 10 (9-20) mg/dL Creatinine 0.87 (0.66-1.25) mg/dL Glucose 95 (74-99) mg/dL Calcium 8.5 (8.4-10.2) mg/dL
--- NOTE | 2022-05-28 16:05 | P.PCN ---
Description of Procedure: Preoperative wound left forearm and dorsal aspect the hand the measurement is 3 x 2 on the forearm and on the dorsal suspect the foot is 2 x 2 Post is same Procedure debridement of the wound superficial deep glans tissue and skin was excised wound was irrigated with saline and Aquacel silver applied to the wound dressing applied patient are to the procedure well we will change her dressing on Tuesday
[2022-05-28] MEDS ORDERED: cloNIDine 0.2 MG/24HR PATCH TRANSDERM ONE (18:00)
[2022-05-28] MEDS ORDERED: ACETAMINOPHEN TAB 325 MG TAB PO PRN (19:42)
[2022-05-28] MEDS: hydrALAZINE HCL 20 MG/ML 1 ML VIAL IVP PRN (20:43)
[2022-05-29] MEDS: LORazepam 1 MG/0.5 ML VIAL IV PRN ×7 (03:11→23:27)
[2022-05-29] MEDS: hydrALAZINE HCL 20 MG/ML 1 ML VIAL IVP PRN ×2 (05:47→13:18)
[2022-05-29 07:29] LABS: African American GFR (CKD) >90 (>60 ml/min/1.73 sqM); Anion Gap 14 mmol/L; Blood Urea Nitrogen 9 mg/dL (9-20); Calcium 8.4 mg/dL (8.4-10.2); Carbon Dioxide 18 mmol/L (22-30); Chloride 102 mmol/L (98-107); Glucose 112 mg/dL (74-99); Non-African American GFR(CKD) 86 (>60 ml/min/1.73 sqM); Potassium 3.6 mmol/L (3.5-5.1); Sodium 134 mmol/L (137-145)
[2022-05-29 07:30] LABS: Basophils # (A) 0.1 k/uL (0-0.2); Basophils % (A) 0 %; Eosinophils % (A) 0 %; HCT 46.2 % (39.0-53.0); Lymphocytes # (A) 0.9 k/uL (1.0-4.8); Lymphocytes % (A) 5 %; MCH 33.6 pg (25.0-35.0); MCHC 34.6 g/dL (31.0-37.0); MCV 97.2 fL (80.0-100.0); Mean Platelet Volume 10.3; Monocytes % (A) 6 %; Neutrophils # (A) 14.3 k/uL (1.3-7.7); Neutrophils % (A) 86 %; Platelet Count 143 k/uL (150-450); RBC 4.75 m/uL (4.30-5.90); RDW 12.5 % (11.5-15.5); WBC 16.6 k/uL (3.8-10.6)
--- NOTE | 2022-05-29 11:57 | P.PN ---
Subjective Progress Note Date: 05/29/22 Patient is examined today up walking around the room in no signs of acute distress. He denies increased shortness of breath or chest pain. Patient's blood pressure remains uncontrolled with a systolic in the 190s to 200s. He did receive a dose of IV hydralazine this morning which controlled his blood p ressure brought it down to systolically 126. Will add hydralazine 50 mg every 8 for better blood pressure control. Objective - Vital Signs Vital signs: Vital Signs Temp 98.9 F 05/29/22 06:22 Pulse 98 05/29/22 06:22 Resp 18 05/29/22 06:22 BP 126/86 05/29/22 06:22 Pulse Ox 97 05/29/22 06:22 FiO2 Intake & Output 05/28/22 05/29/22 05/29/22 18:59 06:59 18:59 Intake Total 238 170 Output Total 450 550 Balance -212 -380 Weight 76.7 kg Intake: IV 20 20 Invasive Line 2 20 20 Intake, IV Titration 150 Amount Sodium Chloride 0.9% 1, 150 000 ml @ 75 mls/hr IV . [id number] [facility] Rx#:[id number] Oral 218 Output: Urine 450 550 Other: Voiding Method External Catheter External Catheter - Exam PHYSICAL EXAM: VITAL SIGNS: Reviewed. GENERAL: Well-developed in no acute distress. HEENT: Head is normocephalic. Pupils are equal, round. Sclerae anicteric. Mucous membranes of the mouth are moist. NECK: Supple. No JVD or thyromegaly RESPIRATORY: Respirations even and unlabored. Lungs diminished to auscultation bilaterally. CARDIO: Regular rate and rhythm. S1 and S2 heard. No murmur or gallops. EXTREMITIES: Normal range of motion. No clubbing or cyanosis. Peripheral pulses intact. Negative for bilateral lower extremity edema NEURO: Orientated to person, time, mood is appropriate - Labs CBC & Chem 7: 05/29/22 06:47 05/29/22 06:47 Labs: Abnormal Lab Results - Last 24 Hours (Table) 05/29/22 05/29/22 Range/Units 06:47 06:47 WBC 16.6 H (3.8-10.6) k/uL Plt Count 143 L (150-450) k/uL Neutrophils # 14.3 H (1.3-7.7) k/uL Lymphocytes # 0.9 L (1.0-4.8) k/uL Sodium 134 L (137-145) mmol/L Carbon Dioxide 18 L (22-30) mmol/L Glucose 112 H (74-99) mg/dL Assessment and Plan Assessment: Altered mental status, could be related to alcohol withdrawal Elevated troponin related to underlying ischemic heart disease, could represent NSTEMI, no acute EKG changes. Coronary disease status post PCI to the mid RCA and proximal and proximal OM1 1996, PCI mid LAD in 2007 Hypertension Dyslipidemia Daily alcohol use Plan: Start hydralazine 50 mg every 8 hr Echocardiogram obtained and reviewed Continue with all other current cardiac medications Continue with telemetry monitoring Further recommendations based on clinical course The above impression and plan of care have been discussed and directed by the signing physician. Coretta Goodman, nurse practitioner, acting as scribe for signing physician.
[2022-05-29] MEDS: hydrALAZINE HCL 50 MG TAB PO SCH ×3 (13:27→23:16)
[2022-05-29] MEDS: ASPIRIN 81 MG PO SCH (18:09)
[2022-05-29] MEDS: SODIUM CHLORIDE 0.9% 1,000 ML IV SCH ×2 (18:09→21:11)
[2022-05-29] MEDS: EZETIMIBE 10 MG TAB PO SCH (18:09)
[2022-05-29] MEDS: FOLIC ACID 1 MG TAB PO SCH (18:09)
[2022-05-29] MEDS: HEPARIN SODIUM,PORCINE/PF 5,000 UNIT/0.5 ML SYRINGE SQ SCH ×2 (18:10→20:22)
[2022-05-29] MEDS: PANTOPRAZOLE 40 MG TABLET PO SCH (18:10)
[2022-05-29] MEDS: lisinopriL 10 MG TAB PO SCH (18:10)
[2022-05-29] MEDS: MULTIVITAMINS, THERA 1 EACH TAB PO SCH (18:10)
[2022-05-29] MEDS: METOPROLOL TARTRATE 50 MG TAB PO SCH (18:10)
[2022-05-29] MEDS: THIAMINE 100 MG TAB PO SCH (18:11)
[2022-05-30] MEDS: LORazepam 1 MG/0.5 ML VIAL IV PRN ×3 (06:22→15:14)
[2022-05-30 06:25] LABS: Basophils % (A) 0 %; Eosinophils # (A) 0.1 k/uL (0-0.7); Eosinophils % (A) 1 %; HCT 44.4 % (39.0-53.0); HGB 14.8 gm/dL (13.0-17.5); Lymphocytes # (A) 1.2 k/uL (1.0-4.8); Lymphocytes % (A) 11 %; MCH 32.5 pg (25.0-35.0); MCHC 33.4 g/dL (31.0-37.0); MCV 97.3 fL (80.0-100.0); Mean Platelet Volume 9.4; Monocytes # (A) 0.8 k/uL (0-1.0); Monocytes % (A) 7 %; Neutrophils # (A) 9.1 k/uL (1.3-7.7); Neutrophils % (A) 80 %; Platelet Count 100 k/uL (150-450); RBC 4.56 m/uL (4.30-5.90); RDW 12.1 % (11.5-15.5); WBC 11.4 k/uL (3.8-10.6)
[2022-05-30 06:40] LABS: African American GFR (CKD) >90 (>60 ml/min/1.73 sqM); Anion Gap 9 mmol/L; Blood Urea Nitrogen 11 mg/dL (9-20); Carbon Dioxide 22 mmol/L (22-30); Chloride 104 mmol/L (98-107); Glucose 93 mg/dL (74-99); Non-African American GFR(CKD) 88 (>60 ml/min/1.73 sqM); Sodium 135 mmol/L (137-145)
[2022-05-30 06:46] LABS: Potassium 3.8 mmol/L (3.5-5.1)
[2022-05-30] MEDS: hydrALAZINE HCL 20 MG/ML 1 ML VIAL IVP PRN (09:35)
[2022-05-30] MEDS: HEPARIN SODIUM,PORCINE/PF 5,000 UNIT/0.5 ML SYRINGE SQ SCH ×2 (09:35→21:21)
[2022-05-30] MEDS: SODIUM CHLORIDE 0.9% 1,000 ML IV SCH (09:38)
--- NOTE | 2022-05-30 11:19 | P.PN ---
Subjective Progress Note Date: 05/30/22 Patient examined today resting comfortably in bed in no signs of acute distress. He denies increased shortness of breath or chest pain. Blood pressure remains uncontrolled systolically in the 160s to 170s. Patient is lethargic and unable to follow commands. believed to be dur to alcohol withdrawal. He has not been able to take his oral medication. Due to the fact the patient is an able to tolerate oral medications at this time will start him on a Catapres 0.3 mg patch once patient is able to tolerate oral medications will transition back to oral meds. Patient remains sinus rhythm on the monitor. Objective - Vital Signs Vital signs: Vital Signs Temp 97.9 F 05/30/22 04:00 Pulse 88 05/30/22 04:00 Resp 20 05/30/22 04:00 BP 176/80 05/30/22 04:00 Pulse Ox 98 05/30/22 04:00 FiO2 Intake & Output 05/29/22 05/30/22 05/30/22 18:59 06:59 18:59 Intake Total 20 245 Output Total 700 150 Balance -680 95 Intake: IV 20 20 Invasive Line 2 20 20 Intake, IV Titration 225 Amount Sodium Chloride 0.9% 1, 225 000 ml @ 75 mls/hr IV . [id number] [facility] Rx#:[id number] Output: Urine 700 150 Other: Voiding Method External Catheter External Catheter # Voids 2 - Exam PHYSICAL EXAM: VITAL SIGNS: Reviewed. GENERAL: Well-developed in no acute distress. HEENT: Head is normocephalic. Pupils are equal, round. Sclerae anicteric. Mucous membranes of the mouth are moist. NECK: Supple. No JVD or thyromegaly RESPIRATORY: Respirations even and unlabored. Lungs diminished to auscultation bilaterally. CARDIO: Regular rate and rhythm. S1 and S2 heard. No murmur or gallops. EXTREMITIES: Normal range of motion. No clubbing or cyanosis. Peripheral pulses intact. Negative for bilateral lower extremity edema NEURO: Pleasantly confused - Labs CBC & Chem 7: 05/30/22 05:21 05/30/22 05:21 Labs: Abnormal Lab Results - Last 24 Hours (Table) 05/30/22 05/30/22 Range/Units 05:21 05:21 WBC 11.4 H (3.8-10.6) k/uL Plt Count 100 L (150-450) k/uL Neutrophils # 9.1 H (1.3-7.7) k/uL Sodium 135 L (137-145) mmol/L Calcium 8.0 L (8.4-10.2) mg/dL Assessment and Plan Assessment: Altered mental status, could be related to alcohol withdrawal Elevated troponin related to underlying ischemic heart disease, could represent NSTEMI, no acute EKG changes. Coronary disease status post PCI to the mid RCA and proximal and proximal OM1 1996, PCI mid LAD in 2007 Hypertension Dyslipidemia Daily alcohol use Plan: Start Catapres patch 0.3mg Continue with all other current cardiac medications Continue with telemetry monitoring Further recommendations based on clinical course The above impression and plan of care have been discussed and directed by the signing physician. Coretta Goodman, nurse practitioner, acting as scribe for si ing physician.
[2022-05-30] MEDS ORDERED: cloNIDine 0.3 MG/24HR PATCH TRANSDERM SCH (13:00)
[2022-05-30] MEDS ORDERED: FUROSEMIDE 10 MG/ML 4 ML VIAL IV STA (13:48)
--- NOTE | 2022-05-30 14:27 | XR ---
EXAMINATION TYPE: XR chest 1V DATE OF EXAM: 05/30/2022 COMPARISON: 05/27/2022 HISTORY: Difficulty breathing TECHNIQUE: FINDINGS: Heart is normal. Lungs are clear of consolidation. There is mild linear density left lung b ase. There are no hilar masses. There are chest leads. Thoracic aorta is atheromatous. IMPRESSION: Minimal scarring or subsegmental atelectasis at the left lung base is increased compared to old exams no heart failure.
[2022-05-30] MEDS: ASPIRIN 81 MG PO SCH (16:51)
[2022-05-30] MEDS: ATORVASTATIN 20 MG TAB PO SCH (16:52)
[2022-05-30] MEDS: EZETIMIBE 10 MG TAB PO SCH (16:52)
[2022-05-30] MEDS: FOLIC ACID 1 MG TAB PO SCH (16:53)
[2022-05-30] MEDS: hydrALAZINE HCL 50 MG TAB PO SCH ×3 (16:53→23:03)
[2022-05-30] MEDS: METOPROLOL TARTRATE 50 MG TAB PO SCH (16:54)
[2022-05-30] MEDS: lisinopriL 10 MG TAB PO SCH (16:54)
[2022-05-30] MEDS: THIAMINE 100 MG TAB PO SCH (16:55)
[2022-05-30] MEDS: PANTOPRAZOLE 40 MG TABLET PO SCH (16:55)
[2022-05-30] MEDS: MULTIVITAMINS, THERA 1 EACH TAB PO SCH (16:55)
[2022-05-31] MEDS: PANTOPRAZOLE 40 MG TABLET PO SCH (09:35)
[2022-05-31] MEDS: EZETIMIBE 10 MG TAB PO SCH (09:35)
[2022-05-31] MEDS: THIAMINE 100 MG TAB PO SCH (09:35)
[2022-05-31] MEDS: hydrALAZINE HCL 50 MG TAB PO SCH ×3 (09:35→21:20)
[2022-05-31] MEDS: FOLIC ACID 1 MG TAB PO SCH (09:36)
[2022-05-31] MEDS: ASPIRIN 81 MG PO SCH (09:36)
[2022-05-31] MEDS: MULTIVITAMINS, THERA 1 EACH TAB PO SCH (09:36)
[2022-05-31] MEDS: lisinopriL 10 MG TAB PO SCH (09:36)
[2022-05-31] MEDS: HEPARIN SODIUM,PORCINE/PF 5,000 UNIT/0.5 ML SYRINGE SQ SCH ×2 (09:36→21:19)
[2022-05-31] MEDS: METOPROLOL TARTRATE 50 MG TAB PO SCH ×2 (10:34→21:20)
--- NOTE | 2022-05-31 11:16 | P.CONS ---
History of Present Illness - Reason for Consult Consult date: 05/31/22 wound care - History of Present Illness This is an 81-year-old gentleman being seen by the wound care center for nonhealing ulcerations to the left hand and multiple ulcerations to the left forearm. Patient was restrained resulting in the open ulcerations. Patient has ulcerations with fat layer exposure. Left hand ulceration measures approximately 1.5 x 0.3 x 0 1 cm with no tunneling or undermining noted significant amount of slough noted within the wound bed and minimal granulation. The left forearm has a cluster of 3 ulcerations measuring approximate 2 x 2 x 0.2 cm 1 x 1 x 0.2 cm and 0.4 x 2 x 0.1 cm minimal granulation with significant amount of slough wound edges are attached to the wound base no tunneling or undermining noted. Review Of Systems: Constitutional: No fever, no chills, no night sweats. No weight change. No weakness, fatigue or lethargy. No daytime sleepiness. Integumentary:reports wounds, no lesions. No rash or pruritus. No unusual bruising. No change in hair or nails. Physical exam: General Appearance: Alert, cooperative, no distress, appears stated age. Skin: See HPI all other Skin color, texture, tugor normal, no rashes or lesions. Neurologic: Alert oriented x3 Assessment: 1. Nonhealing ulceration with fatty layer exposure left hand 2. Nonhealing ulceration with fatty layer exposure left forearm Plan: 1. Apply absorptive silver, saline moistened gauze, dry gauze, rolled gauze and secure with Coban and an paper tape as needed. Urged patient to seek treatment and a advanced outpatient center. states that they are going to [place] once he is discharged and they will find a wound care center down there. Thank you for the consultation any questions to contact the wound care center DNP note has been reviewed and discussed with Dr. Hernandez and the impression and plan of care has been directed as dictated. 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 History of Any Multi-Drug Resistant Organisms: None Reported Past Surgical History: Heart Catheterization With Stent Date of Last Stent Placement:: 2007 Past Psychological History: No Psychological Hx Reported Smoking Status: Never smoker Past Alcohol Use History: Daily Past Drug Use History: None Reported Medications and Allergies Home Medications Medication Instructions Recorded Confirmed Type Aspirin EC [Ecotrin Low Dose] 81 mg PO DAILY 05/27/22 05/27/22 History Atorvastatin [Lipitor] 20 mg PO Q48H 05/27/22 05/27/22 History Ezetimibe [Zetia] 10 mg PO DAILY 05/27/22 05/27/22 History Fish Oil/Dha/Epa [Fish Oil 1,200 1 cap PO DAILY 05/27/22 05/27/22 History mg Fish Oil] Metoprolol Tartrate [Lopressor] 50 mg PO DAILY 05/27/22 05/27/22 History Omeprazole 20 mg PO DAILY 05/27/22 05/27/22 History hydroCHLOROthiazide [Hydrodiuril] 25 mg PO DAILY 05/27/22 05/27/22 History lisinopriL [Zestril] 5 mg PO DAILY 05/27/22 05/27/22 History Allergies Allergy/AdvReac Type Severity Reaction Status Date / Time No Known Allergies Allergy Verified 05/27/22 11:27 Physical Exam Vitals: Vital Signs Temp Pulse Pulse Resp BP Pulse Ox 05/31/22 08:58 97.7 F 66 16 131/60 96 05/31/22 04:00 98.9 F 72 18 162/71 98 05/31/22 02:00 98 88 18 05/31/22 00:00 98.1 F 88 18 189/94 97 05/30/22 20:00 98.6 F 65 17 159/84 98 05/30/22 16:00 100.5 F H 96 18 152/69 96 05/30/22 14:00 98 72 18 05/30/22 12:00 100.2 F H 72 18 132/80 98 Intake and Output 05/30/22 05/31/22 05/31/22 22:59 06:59 14:59 Intake Total 10 10 128 Output Total 900 Balance -890 10 128 Intake: IV 10 10 10 Invasive Line 2 10 10 10 Oral 118 Output: Urine 900 Other: Voiding Method External Catheter External Catheter External Catheter Results CBC & Chem 7: 05/30/22 05:21 05/30/22 05:21
--- NOTE | 2022-05-31 11:19 | P.PN ---
Subjective Progress Note Date: 05/28/22 Patient is 81-year-old male with a known history of coronary artery disease status post stent placement, daily alcohol use, hypertension, hyperlipidemia, GERD was brought to the hospital by EMS. Patient's called the police after he has fallen consistently for the past 3 days. According to his patient stopped drinking about 8 days ago. He did not drink half a beer yesterday. Patient's states that last 3 days he got out of bed and has taken a fall. Last night around midnight she went to check on him after the fall and he was having a hard time speaking. And after 1 minute it resolved but did not notice any facial droop or for new focal weakness. Patient then became agitated and handcuffed by police and was brought to the hospital. Currently patient is sedated due to alcohol withdrawal symptoms and could not provide any history. Laboratory test showed WBC 8.6 hemoglobin 13.0 and platelets 137 Sodium 133 potassium 3.4 chloride 96 bicarb is 23 BUN 12 and creatinine 0.97 and magnesium 1.4. Ammonia less than 9 Troponin 0.038, 0.0790.088 TSH 0.900 Urinalysis shows trace glucose and ketones. UDS negative Serum alcohol level is less than 10. CT brain showed cerebral atrophy and chronic small vessel ischemia. Hydrocephalus. No acute intracranial abnormality. CT angiogram showed within the normal limits of the exam no significant intracranial extracranial angiographic abnormality. No evidence of hemodynamic stenosis. Chest x-ray showed no acute cardiopulmonary disease. 05/28/2022 Patient is currently lying in the bed. Lethargic and drowsy and unable to provide any history. Blood pressure is elevated and was given IV hydralazine this morning. Started back on home blood pressure medications. Patient has been afebrile. No nausea vomiting. Still having shakiness and withdrawal symptoms. Continued on alcohol withdrawal protocol. Cardiology is on board. Echocardiogram showed normal left ventricular systolic function. Technically difficult study. Laboratory data showed WBC 16.6 hemoglobin 16.0 and platelets 143 Sodium 134 potassium 3.6 chloride 99, BUN 10 and creatinine 0.87 and blood sugar 192., Vitamin B12 297 and TSH 1.7 Current medications reviewed. Objective - Vital Signs Vital signs: Vital Signs Temp 99.6 F 05/28/22 19:41 Pulse 89 05/28/22 17:00 Resp 18 05/28/22 15:50 BP 205/93 05/28/22 17:00 Pulse Ox 96 05/28/22 15:50 FiO2 Intake & Output 05/28/22 05/28/22 05/29/22 06:59 18:59 06:59 Intake Total 825 238 Output Total 500 450 Balance 325 -212 Weight 76.7 kg Intake: IV 20 Invasive Line 2 20 Intake, IV Titration 825 Amount Sodium Chloride 0.9% 1, 825 000 ml @ 75 mls/hr IV . [id number] [facility] Rx#:[id number] Oral 218 Output: Urine 500 450 Other: Voiding Method External Catheter External Catheter - Exam PHYSICAL EXAMINATION: Patient is lying in the bed comfortably, no acute distress, patient is drowsy... HEENT: Normocephalic. Neck is supple. Pupils reactive. Nostrils clear. Oral cavity is moist. Neck reveals no JVD, carotid bruits, or thyromegaly. CHEST EXAMINATION: Trachea is central. Symmetrical expansion. Lung mendes clear to auscultation and percussion. CARDIAC: Normal S1, S2 with no gallops. No murmurs ABDOMEN: Soft. Bowel sounds normal. No organomegaly. No abdominal bruits. Extremities: reveal no edema. No clubbing or cyanosis Neurologically awake, alert, oriented x 2-3 . No gross focal deficits noted Skin: No rash or skin lesions. Psychiatric: Could not be assessed completely. Musculoskeletal: No joint swelling or deformity. Normal range of motion. - Labs CBC & Chem 7: 05/30/22 05:21 05/30/22 05:21 Labs: Abnormal Lab Results - Last 24 Hours (Table) 05/28/22 05/28/22 Range/Units 07:38 07:38 Plt Count 148 L (150-450) k/uL Sodium 135 L (137-145) mmol/L Creatine Kinase 192 H (55-170) U/L Assessment and Plan Assessment: Acute alcohol withdrawal symptoms. Patient stopped drinking about 8 days ago. Next and altered mental status secondary to above History of multiple falls during the last 3 days Elevated troponin level possible NSTEMI cannot be excluded. Coronary disease history of stent placement Hypokalemia and hypomagnesemia Hypovolemic hyponatremia Uncontrolled hypertension Daily alcohol use DVT prophylax with heparin subcu Plan: Patient recommended on telemetry monitoring. Unlikely ACS. 2D echocardiogram was ordered and cardiology is on board. Continue with IV hydration and alcohol withdrawal protocol. Dictated blood pressure medications. Thiamine and multivitamins and follow-up closely. Patient will be started back on home medications. We will hold hydrochlorothiazide. Continue to follow closely. Prognosis is guarded at this time. Time with Patient: Greater than 30
--- NOTE | 2022-05-31 11:22 | P.PN ---
Subjective Progress Note Date: 05/29/22 Patient is 81-year-old male with a known history of coronary artery disease status post stent placement, daily alcohol use, hypertension, hyperlipidemia, GERD was brought to the hospital by EMS. Patient's called the police after he has fallen consistently for the past 3 days. According to his patient stopped drinking about 8 days ago. He did not drink half a beer yesterday. Patient's states that last 3 days he got out of bed and has taken a fall. Last night around midnight she went to check on him after the fall and he was having a hard time speaking. And after 1 minute it resolved but did not notice any facial droop or for new focal weakness. Patient then became agitated and handcuffed by police and was brought to the hospital. Currently patient is sedated due to alcohol withdrawal symptoms and could not provide any history. Laboratory test showed WBC 8.6 hemoglobin 13.0 and platelets 137 Sodium 133 potassium 3.4 chloride 96 bicarb is 23 BUN 12 and creatinine 0.97 and magnesium 1.4. Ammonia less than 9 Troponin 0.038, 0.0790.088 TSH 0.900 Urinalysis shows trace glucose and ketones. UDS negative Serum alcohol level is less than 10. CT brain showed cerebral atrophy and chronic small vessel ischemia. Hydrocephalus. No acute intracranial abnormality. CT angiogram showed within the normal limits of the exam no significant intracranial extracranial angiographic abnormality. No evidence of hemodynamic stenosis. Chest x-ray showed no acute cardiopulmonary disease. 05/28/2022 Patient is currently lying in the bed. Lethargic and drowsy and unable to provide any history. Blood pressure is elevated and was given IV hydralazine this morning. Started back on home blood pressure medications. Patient has been afebrile. No nausea vomiting. Still having shakiness and withdrawal symptoms. Continued on alcohol withdrawal protocol. Cardiology is on board. Echocardiogram showed normal left ventricular systolic function. Technically difficult study. Laboratory data showed WBC 16.6 hemoglobin 16.0 and platelets 143 Sodium 134 potassium 3.6 chloride 99, BUN 10 and creatinine 0.87 and blood sugar 192., Vitamin B12 297 and TSH 1.7 05/29/2022 Patient is resting in bed. Awake and alert. Still drowsy. Blood pressure is elevated. No complaints of chest pain or shortness of breath. No nausea vomiting abdominal area. Tolerating minimal oral intake. Patient is being continued on IV hydration and WITHDRAWAL protocol. Laboratory data showed WBC went up to 16.6 hemoglobin 16.0 and platelets 143 sodium 134 potassium 3.6 chloride 102 bicarb is 18 BUN 9 and creatinine 0.7. Blood sugar 112 Patient is on clonidine patch, hydralazine and lisinopril. Cardiology is on board. Patient was seen by vascular surgery with left forearm wound. Current medications reviewed. Objective - Vital Signs Vital signs: Vital Signs Temp 99.1 F 05/29/22 20:00 Pulse 90 05/29/22 20:00 Resp 19 05/29/22 20:00 BP 164/75 05/29/22 20:00 Pulse Ox 99 05/29/22 20:00 FiO2 Intake & Output 05/29/22 05/29/22 05/30/22 06:59 18:59 06:59 Intake Total 170 20 235 Output Total 550 700 150 Balance -380 -680 85 Intake: IV 20 20 10 Invasive Line 2 20 20 10 Intake, IV Titration 150 225 Amount Sodium Chloride 0.9% 1, 150 225 000 ml @ 75 mls/hr IV . [id number] [facility] Rx#:[id number] Output: Urine 550 700 150 Other: Voiding Method External Catheter External Catheter External Catheter - Exam PHYSICAL EXAMINATION: Patient is lying in the bed comfortably, no acute distress, patient is awake alert. HEENT: Normocephalic. Neck is supple. Pupils reactive. Nostrils clear. Oral cavity is moist. Neck reveals no JVD, carotid bruits, or thyromegaly. CHEST EXAMINATION: Trachea is central. Symmetrical expansion. Lung mendes clear to auscultation and percussion. CARDIAC: Normal S1, S2 with no gallops. No murmurs ABDOMEN: Soft. Bowel sounds normal. No organomegaly. No abdominal bruits. Extremities: reveal no edema. No clubbing or cyanosis Neurologically awake, alert, oriented x 2-3 . No gross focal deficits noted Skin: No rash or skin lesions. Psychiatric: Could not be assessed completely. Musculoskeletal: No joint swelling or deformity. Normal range of motion. - Labs CBC & Chem 7: 05/30/22 05:21 05/30/22 05:21 Labs: Abnormal Lab Results - Last 24 Hours (Table) 05/29/22 05/29/22 Range/Units 06:47 06:47 WBC 16.6 H (3.8-10.6) k/uL Plt Count 143 L (150-450) k/uL Neutrophils # 14.3 H (1.3-7.7) k/uL Lymphocytes # 0.9 L (1.0-4.8) k/uL Sodium 134 L (137-145) mmol/L Carbon Dioxide 18 L (22-30) mmol/L Glucose 112 H (74-99) mg/dL Assessment and Plan Assessment: Acute alcohol withdrawal symptoms. Patient stopped drinking about 8 days ago. Next and altered mental status secondary to above History of multiple falls during the last 3 days Elevated troponin level possible NSTEMI cannot be excluded. hypertensive urgency Coronary disease history of stent placement Hypokalemia and hypomagnesemia Hypovolemic hyponatremia Uncontrolled hypertension Daily alcohol use DVT prophylax with heparin subcu Plan: Patient recommended on telemetry monitoring. Unlikely ACS. 2D echocardiogram was ordered and cardiology is on board. Continue with IV hydration and alcohol withdrawal protocol. Titrate blood pressure medications. Thiamine and multivitamins and follow-up closely. We will hold hydrochlorothiazide. Continue to follow closely. Prognosis is guarded at this time. Time with Patient: Greater than 30
--- NOTE | 2022-05-31 11:29 | P.PN ---
Subjective Progress Note Date: 05/30/22 Patient is 81-year-old male with a known history of coronary artery disease status post stent placement, daily alcohol use, hypertension, hyperlipidemia, GERD was brought to the hospital by EMS. Patient's called the police after he has fallen consistently for the past 3 days. According to his patient stopped drinking about 8 days ago. He did not drink half a beer yesterday. Patient's states that last 3 days he got out of bed and has taken a fall. Last night around midnight she went to check on him after the fall and he was having a hard time speaking. And after 1 minute it resolved but did not notice any facial droop or for new focal weakness. Patient then became agitated and handcuffed by police and was brought to the hospital. Currently patient is sedated due to alcohol withdrawal symptoms and could not provide any history. Laboratory test showed WBC 8.6 hemoglobin 13.0 and platelets 137 Sodium 133 potassium 3.4 chloride 96 bicarb is 23 BUN 12 and creatinine 0.97 and magnesium 1.4. Ammonia less than 9 Troponin 0.038, 0.0790.088 TSH 0.900 Urinalysis shows trace glucose and ketones. UDS negative Serum alcohol level is less than 10. CT brain showed cerebral atrophy and chronic small vessel ischemia. Hydrocephalus. No acute intracranial abnormality. CT angiogram showed within the normal limits of the exam no significant intracranial extracranial angiographic abnormality. No evidence of hemodynamic stenosis. Chest x-ray showed no acute cardiopulmonary disease. 05/28/2022 Patient is currently lying in the bed. Lethargic and drowsy and unable to provide any history. Blood pressure is elevated and was given IV hydralazine this morning. Started back on home blood pressure medications. Patient has been afebrile. No nausea vomiting. Still having shakiness and withdrawal symptoms. Continued on alcohol withdrawal protocol. Cardiology is on board. Echocardiogram showed normal left ventricular systolic function. Technically difficult study. Laboratory data showed WBC 16.6 hemoglobin 16.0 and platelets 143 Sodium 134 potassium 3.6 chloride 99, BUN 10 and creatinine 0.87 and blood sugar 192., Vitamin B12 297 and TSH 1.7 05/29/2022 Patient is resting in bed. Awake and alert. Still drowsy. Blood pressure is elevated. No complaints of chest pain or shortness of breath. No nausea vomiting abdominal area. Tolerating minimal oral intake. Patient is being continued on IV hydration and WITHDRAWAL protocol. Laboratory data showed WBC went up to 16.6 hemoglobin 16.0 and platelets 143 sodium 134 potassium 3.6 chloride 102 bicarb is 18 BUN 9 and creatinine 0.7. Blood sugar 112 Patient is on clonidine patch, hydralazine and lisinopril. Cardiology is on board. Patient was seen by vascular surgery with left forearm wound. 05/30/2022 Patient is currently lying in the bed. Awake and alert. Denied any complains of chest pain or shortness of breath. Blood pressure is still uncontrolled. Patient also getting IV hydration normal saline. Patient is also being continued on alcohol withdrawal protocol. Otherwise denied any nausea or vomiting. No complaints of pain. Wound care was consulted for the left forearm wound and one on the scalp. Patient has been afebrile. Laboratory data showed WBC improved to 11.4 hemoglobin 14.8 and platelets 100 Sodium potassium 3.06387 bicarb is 22 BUN 11 creatinine 0.7. Cardiology is on board. Current medications reviewed. Objective - Vital Signs Vital signs: Vital Signs Temp 100.5 F H 05/30/22 16:00 Pulse 96 05/30/22 16:00 Resp 18 05/30/22 16:00 BP 152/69 05/30/22 16:00 Pulse Ox 96 05/30/22 16:00 FiO2 Intake & Output 05/30/22 05/30/22 05/31/22 06:59 18:59 06:59 Intake Total 245 500 Output Total 150 900 Balance 95 -400 Intake: IV 20 20 Invasive Line 2 20 20 Intake, IV Titration 225 Amount Sodium Chloride 0.9% 1, 225 000 ml @ 75 mls/hr IV . [id number] [facility] Rx#:[id number] Oral 480 Output: Urine 150 900 Other: Voiding Method External Catheter External Catheter # Voids 2 1 - Exam PHYSICAL EXAMINATION: Patient is lying in the bed comfortably, no acute distress, patient is awake alert. HEENT: Normocephalic. Neck is supple. Pupils reactive. Nostrils clear. Oral cavity is moist. Neck reveals no JVD, carotid bruits, or thyromegaly. CHEST EXAMINATION: Trachea is central. Symmetrical expansion. Lung mendes clear to auscultation and percussion. CARDIAC: Normal S1, S2 with no gallops. No murmurs ABDOMEN: Soft. Bowel sounds normal. No organomegaly. No abdominal bruits. Extremities: reveal no edema. No clubbing or cyanosis Neurologically awake, alert, oriented x 2-3 . No gross focal deficits noted Skin: No rash or skin lesions. Psychiatric: Could not be assessed completely. Musculoskeletal: No joint swelling or deformity. Normal range of motion. - Labs CBC & Chem 7: 05/30/22 05:21 05/30/22 05:21 Labs: Abnormal Lab Results - Last 24 Hours (Table) 05/30/22 05/30/22 Range/Units 05:21 05:21 WBC 11.4 H (3.8-10.6) k/uL Plt Count 100 L (150-450) k/uL Neutrophils # 9.1 H (1.3-7.7) k/uL Sodium 135 L (137-145) mmol/L Calcium 8.0 L (8.4-10.2) mg/dL Assessment and Plan Assessment: Acute alcohol withdrawal symptoms. Patient stopped drinking about 8 days ago. Next and altered mental status secondary to above History of multiple falls during the last 3 days Elevated troponin level possible NSTEMI cannot be excluded. hypertensive urgency Coronary disease history of stent placement Hypokalemia and hypomagnesemia Hypovolemic hyponatremia Uncontrolled hypertension Daily alcohol use DVT prophylax with heparin subcu Plan: Patient recommended on telemetry monitoring. Unlikely ACS. 2D echocardiogram was ordered and cardiology is on board. Continue with IV hydration and alcohol withdrawal protocol. Titrate blood pressure medications. Currently on Catapres patch 0.3, hydralazine and lisinopril. Patient was given a dose of IV Lasix. Thiamine and multivitamins and follow-up closely. We will hold hydrochlorothiazide. Continue to follow closely. Prognosis is guarded at this time. Time with Patient: Greater than 30
[2022-05-31] MEDS: CYANOCOBALAMIN 1,000 MCG/ML 1 ML VIAL IM SCH (12:00)
--- NOTE | 2022-05-31 13:48 | P.CNNES ---
History of Present Illness Consult date: 05/31/22 Requesting physician: Kg Gibson Reason for Consult: Hypertension/confusion History of Present Illness: Patient is a 81-year-old right-handed male with history of hypertension, mild alcoholism, came to the hospital by ambulance on 05/27/2022 Patient's was present, who provided the history. She states that patient has been drinking about 6 beers a day for last 60 years. Sometimes he would quit for 1-2 months, had no problems in the past. About 10 days prior to arrival, he decided to quit. Since then he has been falling every night, 3-4 times a night. She says that he has no balance. Prior to arrival, she thought that he was having a CVA. He was not talking, only his mouth was moving, nothing coming out of his mouth. This was almost similar to how he acted when he had a stroke in 2005. There was no focal weakness, no facial droop. She states that this problem lasted for only a few minutes. She called the EMS. When they arrived, patient started talking, did not want to go to the hospital. He started becoming belligerent, started swinging at the EMS. As per EMS flow sheet, it was mentioned that for the last 3 days, patient has not gotten out of bed and hasn't been eating or drinking much. She had mentioned that patient was having late stages of dementia although he has never been diagnosed with it. Patient apparently started hitting, biting on the EMS. Patient was placed on restrained. He suffered from scuffing of skin and laceration on the forearm. Patient continued to be very agitated during transport to the hospital. Patient's blood test shows normal CBC, CMP. Troponin is mildly elevated 0.088. Vitamin B12 is slightly low 297, RBC folate 292. TSH is normal 1.73. Hepatic panel is normal. Ammonia UA shows negative nitrite, negative leukocyte esterase. Urine drug screen negative. Blood alcohol level negative. CT head showed cerebral atrophy, chronic small vessel ischemic change. Hydrocephalus. No acute process. I personally reviewed CT head, agree with the findings except there is no hydrocephalus. There is generalized brain atrophy. Patient's states that he underwent Covid vaccination on 11/08/2020 and 12/06/2020. Since January 2021 he started falling. He was little better, but has not been moving a lot. He would be sitting watching TV all the time. He has difficulty standing up, always hanging on to his walker. Patient's has noticed that he has been losing memory particularly in the last 8-9 months. This year she has noticed that he would start the sentence, and loses thought and she has to remind him what he was talking. If someone interrupts, he forgets what he was <9. talking about. Earlier he was thinking that he was in a school house and the year is 1969. No family history of dementia. He also has peripheral neuropathy, with pins and needle sensation in the bottom of the feet for the last 2 years. Lately his fingertips has also been feeling numb. Patient currently taking aspirin 81 mg daily, Lipitor [address], HCTZ, Lipitor 20 mg every 48 hours, fish oil, metoprolol, omeprazole and lisinopril. He does not smoke cigarettes, denies diabetes. Patient's states that he had history of an NC in 1996, stroke in 2005. He had undergone bilateral CEA in 2005 and 2006. He had a CVA in which she could not talk for about 24 hours in 2005. Patient at present offers no complaints. He has extremely slow mentation. Review of Systems Constitutional: Denies chills, Denies fever Eyes: denies blurred vision, denies pain Ears, nose, mouth and throat: Denies headache, Denies sore throat Cardiovascular: Denies chest pain, Denies shortness of breath Respiratory: Denies cough Gastrointestinal: Denies abdominal pain, Denies diarrhea, Denies nausea, Denies vomiting Genitourinary: Reports nocturia, Denies incontinence Musculoskeletal: Reports neck pain, Denies myalgias Integumentary: Reports wounds, Denies pruritus, Denies rash Neurological: Reports as per HPI Psychiatric: Reports confusion, Reports memory loss Endocrine: Denies fatigue, Denies weight change Hematologic/Lymphatic: Reports easy bruising Allergic/Immunologic: Denies persistent infections 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 History of Any Multi-Drug Resistant Organisms: None Reported Past Surgical History: Heart Catheterization With Stent Date of Last Stent Placement:: 2007 Past Psychological History: No Psychological Hx Reported Smoking Status: Never smoker Past Alcohol Use History: Daily Past Drug Use History: None Reported Medications and Allergies Home Medications Medication Instructions Recorded Confirmed Type Aspirin EC [Ecotrin Low Dose] 81 mg PO DAILY 05/27/22 05/27/22 History Atorvastatin [Lipitor] 20 mg PO Q48H 05/27/22 05/27/22 History Ezetimibe [Zetia] 10 mg PO DAILY 05/27/22 05/27/22 History Fish Oil/Dha/Epa [Fish Oil 1,200 1 cap PO DAILY 05/27/22 05/27/22 History mg Fish Oil] Metoprolol Tartrate [Lopressor] 50 mg PO DAILY 05/27/22 05/27/22 History Omeprazole 20 mg PO DAILY 05/27/22 05/27/22 History hydroCHLOROthiazide [Hydrodiuril] 25 mg PO DAILY 05/27/22 05/27/22 History lisinopriL [Zestril] 5 mg PO DAILY 05/27/22 05/27/22 History Allergies Allergy/AdvReac Type Severity Reaction Status Date / Time No Known Allergies Allergy Verified 05/27/22 11:27 Physical Examination - Vital Signs Vital Signs: Vital Signs Temp Pulse Pulse Resp BP Pulse Ox 05/31/22 08:58 97.7 F 66 16 131/60 96 05/31/22 04:00 98.9 F 72 18 162/71 98 05/31/22 02:00 98 88 18 05/31/22 00:00 98.1 F 88 18 189/94 97 05/30/22 20:00 98.6 F 65 17 159/84 98 05/30/22 16:00 100.5 F H 96 18 152/69 96 05/30/22 14:00 98 72 18 05/30/22 12:00 100.2 F H 72 18 132/80 98 Intake and Output 05/30/22 05/31/22 05/31/22 22:59 06:59 14:59 Intake Total 10 10 118 Output Total 900 Balance -890 10 118 Intake: IV 10 10 Invasive Line 2 10 10 Oral 118 Output: Urine 900 Other: Voiding Method External Catheter External Catheter Patient is an elderly male, in no acute distress. Patient is alert awake, extremely slow mentation, prolonged latency time to answer questions. He knows his name, thinks he is 31 or 41 years of age. He states he was born in [birth year]. He could not tell the the city or state he lives in. He could not tell what building he is in. He knows name of his Sukhjinder. He could not tell what month or year is it. He said "Tuesday" for the month asked. On asking about the president, states "president is crazy by the name Gurpreet De La Torre". Speech and language functions are normal. Patient can name and repeat very well. Patient at times speaks not clear. Other times appears clear with no dysarthria. Attention, concentration and fund of knowledge is very limited. Patient has bilaterally strongly positive palmomental reflex. On cranial nerve examination, pupils are equal, round and reacting to light, visual mendes were very difficult to assess, cannot rule out left sided visual field defect. Patient was very inconsistent, and would mix up right and left. Extraocular muscles are intact with no nystagmus. Face is symmetric although they replaced to be slight flattening of the right nasolabial fold, his tongue protrudes to the midline. Palatal elevation and sensation normal, hearing is at least moderately decreased and shoulder shrug normal, facial sensation normal. On muscle strength testing, there is no pronator drift and the strength is diffusely 4+5-bilaterally in the upper limbs. He has decreased endurance. Hip flexion is 4-, ankle dorsiflexion 5 bilaterally. Deep tendon reflexes are symmetric biceps 2, brachioradialis 1, knees 1+, ankles 1+ and plantars are upgoing bilaterally. Sensory to touch could not be assessed. Patient would get mixed up, very inconsistent response. Cerebellar function showed no ataxia for [id number] testing. Tone is mildly increased and bulk of muscles normal. Gait deferred.. On general examination, there is no carotid bruit or murmur, S1-S2 audible. Chest is clear on consultation. Abdomen is soft nontender. No organomegaly, bowel sounds present. Peripheral pulses are present. No edema. Results - Laboratory Findings CBC and BMP: 05/30/22 05:21 05/30/22 05:21 Abnormal Lab Findings: Abnormal Labs 05/27/22 05/27/22 05/27/22 02:01 02:01 02:01 WBC RBC 3.80 L Hct 35.7 L Plt Count 137 L Neutrophils # Lymphocytes # 0.6 L Sodium 133 L Potassium 3.4 L Chloride 96 L Carbon Dioxide Glucose 128 H Calcium Magnesium Total Bilirubin 1.4 H Creatine Kinase Troponin I 0.038 H* Urine Protein Urine Glucose (UA) Urine Ketones Urine Blood Urine RBC Urine Bacteria Urine Mucus 05/27/22 05/27/22 05/27/22 02:01 02:18 06:59 WBC RBC Hct Plt Count Neutrophils # Lymphocytes # Sodium Potassium Chloride Carbon Dioxide Glucose Calcium Magnesium 1.4 L Total Bilirubin Creatine Kinase Troponin I 0.079 H* Urine Protein 1+ H Urine Glucose (UA) Trace H Urine Ketones Trace H Urine Blood Small H Urine RBC 6 H Urine Bacteria Rare H Urine Mucus Rare H 05/27/22 05/28/22 05/28/22 10:16 07:38 07:38 WBC RBC Hct Plt Count 148 L Neutrophils # Lymphocytes # Sodium 135 L Potassium Chloride Carbon Dioxide Glucose Calcium Magnesium Total Bilirubin Creatine Kinase 192 H Troponin I 0.088 H* Urine Protein Urine Glucose (UA) Urine Ketones Urine Blood Urine RBC Urine Bacteria Urine Mucus 05/29/22 05/29/22 05/30/22 06:47 06:47 05:21 WBC 16.6 H 11.4 H RBC Hct Plt Count 143 L 100 L Neutrophils # 14.3 H 9.1 H Lymphocytes # 0.9 L Sodium 134 L Potassium Chloride Carbon Dioxide 18 L Glucose 112 H Calcium Magnesium Total Bilirubin Creatine Kinase Troponin I Urine Protein Urine Glucose (UA) Urine Ketones Urine Blood Urine RBC Urine Bacteria Urine Mucus 05/30/22 05:21 WBC RBC Hct Plt Count Neutrophils # Lymphocytes # Sodium 135 L Potassium Chloride Carbon Dioxide Glucose Calcium 8.0 L Magnesium Total Bilirubin Creatine Kinase Troponin I Urine Protein Urine Glucose (UA) Urine Ketones Urine Blood Urine RBC Urine Bacteria Urine Mucus Assessment and Plan Assessment: * Questionable TIA manifesting with transient speech difficulty lasted for a few minutes. Patient's exam was limited because of his mentation and poor cooperation, therefore cannot rule out CVA. * Frequent falls, with brisk reflexes and bilateral Babinski. May be related to possible peripheral neuropathy/B12 deficiency, rule out CVA, rule out spinal stenosis. * Probable underlying dementia, moderate to severe in degree * Hypertension * Alcohol use * History of bilateral CEA * History of previous stroke/TIA with no residual deficits. * Hyperlipidemia * B12 deficiency * CAD Plan: * Patient has presented with possible TIA. He has been falling for last 10 days. Patient's examination was limited due to significant cognitive impairment. We will check MRI of the brain rule out CVA. He does have neck pain, and frequently falls. We will check MRI of the cervical spine to rule out spinal stenosis. * CTA of head and neck revealed "within the limitation of the exam, no significant intracranial or extracranial angiographic abnormality. No evidence of hemodynamic significant stenosis". * 2-D echo revealed technically difficult study for interpretation. Normal left ventricular systolic function. EF is 55-60%. Mild concentric LVH. Left atrial size is normal. * Lipid panel with cholesterol 160, LDL 77, HDL 66 and triglycerides 79. Continue Lipitor 20 mg. * B12 297, TSH 1.73. We will check an MMA, B6, hemoglobin A1c, RPR. Patient will be started on B12 replacement with B12 1000 g IM daily for 3-5 days. * Continue aspirin 81 mg * Telemetry showing sinus rhythm with sinus arrhythmia. * Neurology will follow. Thank you for the consult. Time with Patient: Greater than 30
[2022-05-31] MEDS: SODIUM CHLORIDE 0.9% 1,000 ML IV SCH (17:28)
--- NOTE | 2022-05-31 21:39 | MR ---
EXAMINATION TYPE: MR brain/cspine wo DATE OF EXAM: 05/31/2022 9:01 PM COMPARISON: CT brain 05/27/2022. CLINICAL INDICATION:Male, 81 years old with history of CVA, neck pain, recurrent falls; TECHNIQUE: Multi planar, multi sequence imaging was performed through the brain including: T1, T2, Inversion rec overy, Diffusion weighted imaging, and gradient echo imaging. No gadolinium was given. Multi planar, multi sequence imaging was performed utilizing: T1-weighted, T2-weighted, and turbo inv ersion recovery imaging of the cervical spine. IV Contrast: None FINDINGS: The maloney-white junctions, ventricular system, and cisterns appear unremarkable. Patchy areas of high T2 signal intensity are seen within the periventricular white matter. Midline structures show no abn ormality. Diffusion-weighted imaging shows no evidence of restricted diffusion. There is generalized cerebral atrophy The bone marrow signal is within normal limits. Mild paranasal sinus disease noted in the right right sphenoid sinus mucosal thickening. Alignment: The cervical vertebral bodies have preserved heights. Alignment is straightened. Bones: No suspicious bone marrow signal, multilevel Modic endplate changes. Multilevel degenerative d isc disease is noted and most pronounced at the C5-C7. vertebral levels. Cord: The spinal cord is unremarkable with regards to their signal intensity and morphology. Discs: Multilevel disc desiccation is present. Motion limits evaluation. C2-C3: A disc osteophyte complex is present which minimally narrows the ventral subarachnoid space. Bilateral facet and uncovertebral joint arthropathy are present with mild bilateral neural foraminal stenosis. C3-C4: A disc osteophyte complex is present which minimally narrows the ventral subarachnoid space. Bilateral facet and uncovertebral joint arthropathy are present with moderate bilateral neural arvind inal stenosis. C4-C5: A disc osteophyte complex is present with moderate spinal canal stenosis. Bilateral facet and uncovertebral joint arthropathy are present with moderate bilateral neural foraminal stenosis. C5-C6: A disc osteophyte complex is present with moderate spinal canal stenosis. Bilateral facet and uncovertebral joint arthropathy are present with moderate bilateral neural foraminal stenosis. C6-C7: A disc osteophyte complex is present with moderate spinal canal stenosis. Bilateral facet and uncovertebral joint arthropathy are present with moderate bilateral neural foraminal stenosis. C7-T1: No significant disc pathology. The spinal canal is patent. No neural foraminal stenosis. IMPRESSION: 1. Significant motion artifact on axial imaging of the cervical spine without multilevel at least mod erate spinal canal stenosis at C4-C5, C5-C6 and C6-C7 2. Multilevel disc degeneration with associated osteoarthritic changes with varying degrees of neural foraminal stenosis. 3. No evidence of intracranial mass or acute/subacute infarct. 4. Extensive nonspecific white matter changes, likely secondary to small vessel ischemic disease.
--- NOTE | 2022-06-01 01:09 | P.PN ---
Subjective Progress Note Date: 05/31/22 Patient is 81-year-old male with a known history of coronary artery disease status post stent placement, daily alcohol use, hypertension, hyperlipidemia, GERD was brought to the hospital by EMS. Patient's called the police after he has fallen consistently for the past 3 days. According to his patient stopped drinking about 8 days ago. He did not drink half a beer yesterday. Patient's states that last 3 days he got out of bed and has taken a fall. Last night around midnight she went to check on him after the fall and he was having a hard time speaking. And after 1 minute it resolved but did not notice any facial droop or for new focal weakness. Patient then became agitated and handcuffed by police and was brought to the hospital. Currently patient is sedated due to alcohol withdrawal symptoms and could not provide any history. Laboratory test showed WBC 8.6 hemoglobin 13.0 and platelets 137 Sodium 133 potassium 3.4 chloride 96 bicarb is 23 BUN 12 and creatinine 0.97 and magnesium 1.4. Ammonia less than 9 Troponin 0.038, 0.0790.088 TSH 0.900 Urinalysis shows trace glucose and ketones. UDS negative Serum alcohol level is less than 10. CT brain showed cerebral atrophy and chronic small vessel ischemia. Hydrocephalus. No acute intracranial abnormality. CT angiogram showed within the normal limits of the exam no significant intracranial extracranial angiographic abnormality. No evidence of hemodynamic stenosis. Chest x-ray showed no acute cardiopulmonary disease. 05/28/2022 Patient is currently lying in the bed. Lethargic and drowsy and unable to provide any history. Blood pressure is elevated and was given IV hydralazine this morning. Started back on home blood pressure medications. Patient has been afebrile. No nausea vomiting. Still having shakiness and withdrawal symptoms. Continued on alcohol withdrawal protocol. Cardiology is on board. Echocardiogram showed normal left ventricular systolic function. Technically difficult study. Laboratory data showed WBC 16.6 hemoglobin 16.0 and platelets 143 Sodium 134 potassium 3.6 chloride 99, BUN 10 and creatinine 0.87 and blood sugar 192., Vitamin B12 297 and TSH 1.7 05/29/2022 Patient is resting in bed. Awake and alert. Still drowsy. Blood pressure is elevated. No complaints of chest pain or shortness of breath. No nausea vomiting abdominal area. Tolerating minimal oral intake. Patient is being continued on IV hydration and WITHDRAWAL protocol. Laboratory data showed WBC went up to 16.6 hemoglobin 16.0 and platelets 143 sodium 134 potassium 3.6 chloride 102 bicarb is 18 BUN 9 and creatinine 0.7. Blood sugar 112 Patient is on clonidine patch, hydralazine and lisinopril. Cardiology is on board. Patient was seen by vascular surgery with left forearm wound. 05/30/2022 Patient is currently lying in the bed. Awake and alert. Denied any complains of chest pain or shortness of breath. Blood pressure is still uncontrolled. Patient also getting IV hydration normal saline. Patient is also being continued on alcohol withdrawal protocol. Otherwise denied any nausea or vomiting. No complaints of pain. Wound care was consulted for the left forearm wound and one on the scalp. Patient has been afebrile. Laboratory data showed WBC improved to 11.4 hemoglobin 14.8 and platelets 100 Sodium potassium 3.58816 bicarb is 22 BUN 11 creatinine 0.7. Cardiology is on board. 05/31/2022 admitted to the hospital due to multiple falls and alcohol intoxication/withdrawal symptoms. Patient is currently lying in the bed. Awake alert and oriented. She will respond. Mental status seems to be improving. Blood pressure is better today. Patient was seen by neurology due to multiple falls and possible TIA. MRI of the brain was ordered. Patient is afebrile. No nausea vomiting abdominal pain or diarrhea. Continued alcohol withdrawal protocol. Current medications reviewed. Objective - Vital Signs Vital signs: Vital Signs Temp 98.5 F 05/31/22 17:24 Pulse 64 05/31/22 17:24 Resp 15 05/31/22 17:24 BP 137/66 05/31/22 17:24 Pulse Ox 96 05/31/22 17:24 FiO2 Intake & Output 05/31/22 05/31/22 06/01/22 06:59 18:59 06:59 Intake Total 20 256 Balance 20 256 Weight 76.7 kg Intake: IV 20 20 Invasive Line 2 20 20 Oral 236 Other: Voiding Method External Catheter External Catheter # Voids 1 - Exam PHYSICAL EXAMINATION: Patient is lying in the bed comfortably, no acute distress, patient is awake alert. HEENT: Normocephalic. Neck is supple. Pupils reactive. Nostrils clear. Oral cavity is moist. Neck reveals no JVD, carotid bruits, or thyromegaly. CHEST EXAMINATION: Trachea is central. Symmetrical expansion. Lung mendes clear to auscultation and percussion. CARDIAC: Normal S1, S2 with no gallops. No murmurs ABDOMEN: Soft. Bowel sounds normal. No organomegaly. No abdominal bruits. Extremities: reveal no edema. No clubbing or cyanosis Neurologically awake, alert, oriented x 2-3 . No gross focal deficits noted Skin: No rash or skin lesions. Psychiatric: Could not be assessed completely. Musculoskeletal: No joint swelling or deformity. Normal range of motion. - Labs CBC & Chem 7: 05/30/22 05:21 05/30/22 05:21 Assessment and Plan Assessment: Acute alcohol withdrawal symptoms. Patient stopped drinking about 8 days ago. altered mental status secondary to above Frequent falls, with brisk reflexes and bilateral Babinski. May be related to possible peripheral neuropathy/B12 deficiency, rule out CVA, rule out spinal stenosis. Elevated troponin level possible NSTEMI cannot be excluded. hypertensive urgency Coronary disease history of stent placement Hypokalemia and hypomagnesemia Hypovolemic hyponatremia Uncontrolled hypertension Daily alcohol use DVT prophylax with heparin subcu Plan: Patient recommended on telemetry monitoring. Unlikely ACS. 2D echocardiogram was ordered and cardiology is on board. Continue with IV hydration and alcohol withdrawal protocol. Titrate blood pressure medications. Currently on Catapres patch 0.3, hydralazine and lisinopril. Patient was given a dose of IV Lasix. Thiamine and multivitamins and follow-up closely. We will hold hydrochlorot hiazide. b12 supplementation Continue to follow closely. Prognosis is guarded at this time. Time with Patient: Greater than 30
--- NOTE | 2022-06-01 06:03 | PN ---
PROGRESS NOTE SUBJECTIVE: Mr. Mckeon has some alcohol withdrawal type symptoms and may also have some underlying dementia. I am recommending that we should increase his metoprolol to 50 mg t.i.d., his blood pressure was slightly elevated, seems to have improved now. OBJECTIVE: VITALS: Stable. HEART: S1-S2 heard normally with a short systolic murmur. LUNGS: Revealed improved air entry. ABDOMEN: Soft. LOWER EXTREMITIES: Reveal diminished pulses. CENTRAL NERVOUS SYSTEM: Grossly, no focal deficits. I am recommending that we increase the beta yolanda to 50 mg t.i.d., monitor blood pressure, increase activity, and also recommend some bedside physical therapy. Patient can be discharged whenever okay by the admitting doctor. He remains in sinus rhythm and hemodynamically stable. MMODL / IJN: [id number] /
[2022-06-01] MEDS: SODIUM CHLORIDE 0.9% 1,000 ML IV SCH ×2 (06:35→17:17)
[2022-06-01 08:56] LABS: Basophils % (A) 0 %; Eosinophils # (A) 0.2 k/uL (0-0.7); Eosinophils % (A) 2 %; HCT 41.7 % (39.0-53.0); HGB 14.2 gm/dL (13.0-17.5); Lymphocytes # (A) 1.1 k/uL (1.0-4.8); Lymphocytes % (A) 16 %; MCH 33.1 pg (25.0-35.0); MCV 97.3 fL (80.0-100.0); Mean Platelet Volume 9.7; Monocytes # (A) 0.3 k/uL (0-1.0); Monocytes % (A) 4 %; Neutrophils # (A) 5.4 k/uL (1.3-7.7); Neutrophils % (A) 76 %; RBC 4.29 m/uL (4.30-5.90); RDW 12.2 % (11.5-15.5); WBC 7.1 k/uL (3.8-10.6)
[2022-06-01] MEDS: EZETIMIBE 10 MG TAB PO SCH (08:56)
[2022-06-01] MEDS: PANTOPRAZOLE 40 MG TABLET PO SCH (08:56)
[2022-06-01] MEDS: MULTIVITAMINS, THERA 1 EACH TAB PO SCH (08:56)
[2022-06-01] MEDS: lisinopriL 10 MG TAB PO SCH (08:56)
[2022-06-01] MEDS: METOPROLOL TARTRATE 50 MG TAB PO SCH ×2 (08:56→20:44)
[2022-06-01] MEDS: ASPIRIN 81 MG PO SCH (08:56)
[2022-06-01] MEDS: FOLIC ACID 1 MG TAB PO SCH (08:56)
[2022-06-01] MEDS: ATORVASTATIN 20 MG TAB PO SCH (08:56)
[2022-06-01] MEDS: THIAMINE 100 MG TAB PO SCH (08:56)
[2022-06-01 08:57] LABS: African American GFR (CKD) >90 (>60 ml/min/1.73 sqM); Anion Gap 10 mmol/L; Blood Urea Nitrogen 18 mg/dL (9-20); Calcium 8.4 mg/dL (8.4-10.2); Carbon Dioxide 25 mmol/L (22-30); Chloride 100 mmol/L (98-107); Glucose 113 mg/dL (74-99); Non-African American GFR(CKD) 82 (>60 ml/min/1.73 sqM); Potassium 3.3 mmol/L (3.5-5.1); Sodium 135 mmol/L (137-145)
[2022-06-01] MEDS: hydrALAZINE HCL 50 MG TAB PO SCH ×3 (08:57→20:49)
[2022-06-01] MEDS: HEPARIN SODIUM,PORCINE/PF 5,000 UNIT/0.5 ML SYRINGE SQ SCH ×2 (08:57→20:49)
[2022-06-01] MEDS: CYANOCOBALAMIN 1,000 MCG/ML 1 ML VIAL IM SCH (08:57)
[2022-06-01 08:58] LABS: Platelet Count 196 k/uL (150-450)
[2022-06-01] MEDS ORDERED: lisinopriL 10 MG TAB PO STA (10:07)
[2022-06-01] MEDS ORDERED: Potassium Replacement Protocol 1 EACH MISC MISCELLANE PRN (11:05)
[2022-06-01] MEDS: POTASSIUM CHLORIDE ER 20 MEQ TAB.ER PO SCH ×2 (11:15→14:26)
--- NOTE | 2022-06-01 12:04 | P.PN ---
Subjective Progress Note Date: 06/01/22 HISTORY OF PRESENT ILLNESS: Patient examined this point the bedside. Patient denies chest pain or pressure. He denies shortness of breath. Patient's blood pressure remains elevated this morning with a systolic in the 170s. Per nursing, patient was having 2 second pauses overnight. Telemetry reveals sinus mechanism. PHYSICAL EXAM: VITAL SIGNS: Reviewed. GENERAL: Well-developed in no acute distress. NECK: Supple. No JVD or thyromegaly LUNGS: Respirations even and unlabored. Lungs essentially clear to auscultation bilaterally. HEART: Regular rate and rhythm. S1 and S2 heard. EXTREMITIES: Normal range of motion. No clubbing or cyanosis. Peripheral pulses intact. No lower extremity edema ASSESSMENT: Altered mental status Alcohol withdrawal Coronary artery disease with previous stenting Hypertension Hyperlipidemia Daily alcohol use Elevated troponins, acute coronary syndrome ruled out, of unclear etiology PLAN: Continue current cardiac medications Increase lisinopril to 20 mg twice a day Continue to monitor blood pressure Further recommendations pending patient's course Nurse practitioner note has been reviewed by physician. Signing provider agrees with the documented findings, assessment, and plan of care. Objective - Vital Signs Vital signs: Vital Signs Temp 97.5 F L 06/01/22 11:56 Pulse 62 06/01/22 11:56 Resp 17 06/01/22 11:56 BP 133/75 06/01/22 11:56 Pulse Ox 98 06/01/22 11:56 FiO2 Intake & Output 05/31/22 06/01/22 06/01/22 18:59 06:59 18:59 Intake Total 256 420 Output Total 1 Balance 256 -1 420 Weight 76.7 kg Intake: IV 20 Invasive Line 2 20 Oral 236 420 Output: Urine/Stool Mix 1 Other: Voiding Method External Catheter External Catheter Incontinent # Voids 1 2 - Labs CBC & Chem 7: 06/01/22 08:16 06/01/22 08:16 Labs: Abnormal Lab Results - Last 24 Hours (Table) 06/01/22 06/01/22 Range/Units 08:16 08:16 RBC 4.29 L (4.30-5.90) m/uL Sodium 135 L (137-145) mmol/L Potassium 3.3 L (3.5-5.1) mmol/L Glucose 113 H (74-99) mg/dL
--- NOTE | 2022-06-01 12:49 | PN ---
PROGRESS NOTE This is an 81-year-old gentleman. He has superficial wound on his left forearm. We did the debridement and today changed the dressing. Wound is granulating. We will continue with . This should be changed every 48 hours. MMODL / IJN: [id number] /
--- NOTE | 2022-06-01 14:25 | P.PN ---
Subjective Progress Note Date: 06/01/22 Patient is 81-year-old male with a known history of coronary artery disease status post stent placement, daily alcohol use, hypertension, hyperlipidemia, GERD was brought to the hospital by EMS. Patient's called the police after he has fallen consistently for the past 3 days. According to his patient stopped drinking about 8 days ago. He did not drink half a beer yesterday. Patient's states that last 3 days he got out of bed and has taken a fall. Last night around midnight she went to check on him after the fall and he was having a hard time speaking. And after 1 minute it resolved but did not notice any facial droop or for new focal weakness. Patient then became agitated and handcuffed by police and was brought to the hospital. Currently patient is sedated due to alcohol withdrawal symptoms and could not provide any history. Laboratory test showed WBC 8.6 hemoglobin 13.0 and platelets 137 Sodium 133 potassium 3.4 chloride 96 bicarb is 23 BUN 12 and creatinine 0.97 and magnesium 1.4. Ammonia less than 9 Troponin 0.038, 0.0790.088 TSH 0.900 Urinalysis shows trace glucose and ketones. UDS negative Serum alcohol level is less than 10. CT brain showed cerebral atrophy and chronic small vessel ischemia. Hydrocephalus. No acute intracranial abnormality. CT angiogram showed within the normal limits of the exam no significant intracranial extracranial angiographic abnormality. No evidence of hemodynamic stenosis. Chest x-ray showed no acute cardiopulmonary disease. 05/28/2022 Patient is currently lying in the bed. Lethargic and drowsy and unable to provide any history. Blood pressure is elevated and was given IV hydralazine this morning. Started back on home blood pressure medications. Patient has been afebrile. No nausea vomiting. Still having shakiness and withdrawal symptoms. Continued on alcohol withdrawal protocol. Cardiology is on board. Echocardiogram showed normal left ventricular systolic function. Technically difficult study. Laboratory data showed WBC 16.6 hemoglobin 16.0 and platelets 143 Sodium 134 potassium 3.6 chloride 99, BUN 10 and creatinine 0.87 and blood sugar 192., Vitamin B12 297 and TSH 1.7 05/29/2022 Patient is resting in bed. Awake and alert. Still drowsy. Blood pressure is elevated. No complaints of chest pain or shortness of breath. No nausea vomiting abdominal area. Tolerating minimal oral intake. Patient is being continued on IV hydration and WITHDRAWAL protocol. Laboratory data showed WBC went up to 16.6 hemoglobin 16.0 and platelets 143 sodium 134 potassium 3.6 chloride 102 bicarb is 18 BUN 9 and creatinine 0.7. Blood sugar 112 Patient is on clonidine patch, hydralazine and lisinopril. Cardiology is on board. Patient was seen by vascular surgery with left forearm wound. 05/30/2022 Patient is currently lying in the bed. Awake and alert. Denied any complains of chest pain or shortness of breath. Blood pressure is still uncontrolled. Patient also getting IV hydration normal saline. Patient is also being continued on alcohol withdrawal protocol. Otherwise denied any nausea or vomiting. No complaints of pain. Wound care was consulted for the left forearm wound and one on the scalp. Patient has been afebrile. Laboratory data showed WBC improved to 11.4 hemoglobin 14.8 and platelets 100 Sodium potassium 3.35151 bicarb is 22 BUN 11 creatinine 0.7. Cardiology is on board. 05/31/2022 admitted to the hospital due to multiple falls and alcohol intoxication/withdrawal symptoms. Patient is currently lying in the bed. Awake alert and oriented. She will respond. Mental status seems to be improving. Blood pressure is better today. Patient was seen by neurology due to multiple falls and possible TIA. MRI of the brain was ordered. Patient is afebrile. No nausea vomiting abdominal pain or diarrhea. Continued alcohol withdrawal protocol. 06/01/22. Patient seen and examined. at the bedside. Patient much more stronger compared to yesterday according to the . Patient was convinced about going to rehab and she agrees at this time. Vital signs REVIEW OF SYSTEMS: CONSTITUTIONAL: No fever, no malaise, no fatigue. HEENT: No recent visual problems or hearing problems. Denied any sore throat. CARDIOVASCULAR: No chest pain, orthopnea, PND, no palpitations, no syncope. PULMONARY: No shortness of breath, no cough, no hemoptysis. GASTROINTESTINAL: No diarrhea, no nausea, no vomiting, no abdominal pain. PHYSICAL EXAMINATION: GENERAL: The patient is alert , not in any acute distress. Well developed, well nourished. HEENT: Pupils are round and equally reacting to light. EOMI. No scleral icterus. No conjunctival pallor. Normocephalic, atraumatic. No pharyngeal erythema. No thyromegaly. CARDIOVASCULAR: S1 and S2 present. No murmurs, rubs, or gallops. PULMONARY: Chest is clear to auscultation, no wheezing or crackles. ABDOMEN: Soft, nontender, nondistended, normoactive bowel sounds. No palpable organomegaly. MUSCULOSKELETAL: No joint swelling or deformity. EXTREMITIES: No cyanosis, clubbing, or pedal edema. NEUROLOGICAL: Gross neurological examination did not reveal any focal deficits. SKIN: No rashes. Assessment and plan Acute alcohol withdrawal symptoms. Patient stopped drinking about 8 days ago. altered mental status secondary to above Frequent falls, with brisk reflexes and bilateral Babinski. May be related to possible peripheral neuropathy/B12 deficiency, rule out CVA, rule out spinal stenosis. Elevated troponin level possible NSTEMI cannot be excluded. hypertensive urgency Coronary disease history of stent placement Hypokalemia and hypomagnesemia Hypovolemic hyponatremia Uncontrolled hypertension Daily alcohol use DVT prophylax with heparin subcu Plan: Continue telemetry monitoring. Cardiology increased dose of lisinopril 20 mg daily Continue with alcohol withdrawal protocol. Continue Catapres patch 0.3, hydralazine . Thiamine and multivitamins and follow-up closely. We will hold hydrochlorothiazide. b12 supplementation PT and OT recommended rehab DVT prophylaxis: Objective - Vital Signs Vital signs: Vital Signs Temp 97.5 F L 06/01/22 11:56 Pulse 62 06/01/22 11:56 Resp 17 06/01/22 11:56 BP 133/75 06/01/22 11:56 Pulse Ox 98 06/01/22 11:56 FiO2 Intake & Output 05/31/22 06/01/22 06/01/22 18:59 06:59 18:59 Intake Total 256 538 Output Total 1 Balance 256 -1 538 Weight 76.7 kg Intake: IV 20 Invasive Line 2 20 Oral [id number] Output: Urine/Stool Mix 1 Other: Voiding Method External Catheter External Catheter Incontinent # Voids 1 2 - Labs CBC & Chem 7: 06/01/22 08:16 06/01/22 08:16 Labs: Abnormal Lab Results - Last 24 Hours (Table) 06/01/22 06/01/22 Range/Units 08:16 08:16 RBC 4.29 L (4.30-5.90) m/uL Sodium 135 L (137-145) mmol/L Potassium 3.3 L (3.5-5.1) mmol/L Glucose 113 H (74-99) mg/dL
--- NOTE | 2022-06-01 15:40 | P.PN ---
Subjective Progress Note Date: 06/01/22 patient was seen for a follow-up. Patient is doing much better. Patient's was also present today.patient denies any symptoms. Telemetry monitoring showing sinus rhythm, with occasional pauses up to 2.1 seconds 2. Sinus bradycardia in high 30s. PACs PVCs. Objective - Vital Signs Vital signs: Vital Signs Temp 97.5 F L 06/01/22 11:56 Pulse 72 06/01/22 14:00 Resp 18 06/01/22 14:00 BP 133/75 06/01/22 11:56 Pulse Ox 98 06/01/22 11:56 FiO2 Intake & Output 05/31/22 06/01/22 06/01/22 18:59 06:59 18:59 Intake Total 256 538 Output Total 1 Balance 256 -1 538 Weight 76.7 kg Intake: IV 20 Invasive Line 2 20 Oral [id number] Output: Urine/Stool Mix 1 Other: Voiding Method External Catheter External Catheter Toilet # Voids 1 2 - Exam Patient is alert and awake. His mentation has much improved. Latency time to answer questions have much improved. He could not tell what month is it although he states the year is 1921. He states he is in hospital "with the [place]", in [facility]. He knows that he lives in the [facility]. Patient was able to tell name of the current president Mr. Oscar Sorto. Speech and language functions are normal. Patient has mildly positive bilateral palmomental reflex. cranial nerves are normal. Muscle strength is normal. No ataxia. No significant myoclonic jerks of outstretched hands. - Labs CBC & Chem 7: 06/02/22 08:33 06/02/22 08:33 Labs: Abnormal Lab Results - Last 24 Hours (Table) 06/01/22 06/01/22 Range/Units 08:16 08:16 RBC 4.29 L (4.30-5.90) m/uL Sodium 135 L (137-145) mmol/L Potassium 3.3 L (3.5-5.1) mmol/L Glucose 113 H (74-99) mg/dL Assessment and Plan Assessment: * Questionable TIA manifesting with transient speech difficulty lasted for a few minutes. No evidence of CVA on MRI of the brain. * Frequent falls, with brisk reflexes and bilateral Babinski. May be related to possible peripheral neuropathy/B12 deficiency. No evidence of CVA, no evidence of spinal stenosis. 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 * Hyperlipidemia * B12 deficiency * CAD Plan: * MRI of the brain revealed no acute ischemic stroke. Some small vessel isch emic disease. I personally reviewed MRI, and no evidence of CVA. * MRI of the cervical spine showed no significant spinal stenosis. Some degenerative changes. * CTA of head and neck revealed "within the limitation of the exam, no significant intracranial or extracranial angiographic abnormality. No evidence of hemodynamic significant stenosis". * 2-D echo revealed technically difficult study for interpretation. Normal left ventricular systolic function. EF is 55-60%. Mild concentric LVH. Left atrial size is normal. * Lipid panel with cholesterol 160, LDL 77, HDL 66 and triglycerides 79. Continue Lipitor 20 mg. * B12 297, TSH 1.73. Await an MMA, B6. Continue B12 replacement. * Hemoglobin A1c 5.3, RPR nonreactive. * Continue aspirin 81 mg * Telemetry showing sinus bradycardia. Cardiology already on board, adjusting medications. * EEG was performed, as per preliminary report, revealed no epileptiform activity. * PT OT, evaluate gait. * Neurologically clear, if cleared by cardiology, PT and OT. Possible to rehab.
[2022-06-01] MEDS: lisinopriL 20 MG TAB PO SCH (20:49)
--- NOTE | 2022-06-02 02:40 | EEG ---
ELECTROENCEPHALOGRAM REPORT PREAMBLE: This is an 81-year-old male with altered mental status, and frequent falls. This study is performed to evaluate for any epileptiform activity. EEG FINDINGS: This is a 21-channel digital EEG recorded with video component, utilizing 10/20 international system with referential and bipolar montages. Background consists of well-developed, moderately well regulated, mixed frequencies of fairly well-formed 10 to 11 hertz alpha. Posterior dominant, intermixed with some diffuse theta and some delta activity seen in bihemispheric region. Background seems to be not clearly reactive to eye opening and closing. Different stages of sleep were not clearly seen. Photic stimulation was not done. No focal or generalized epileptiform activity was seen. IMPRESSION: This is an abnormal EEG due to background slowing of mild to moderate degree. This is suggestive of generalized cerebral dysfunction as can be seen with toxic metabolic encephalopathy or related to diffuse structural brain abnormality. Clinical correlation is recommended. No epileptiform activity is seen. MMODL / IJN: [id number] /
[2022-06-02] MEDS: SODIUM CHLORIDE 0.9% 1,000 ML IV SCH ×2 (04:00→19:12)
[2022-06-02] MEDS: MULTIVITAMINS, THERA 1 EACH TAB PO SCH (08:41)
[2022-06-02] MEDS: THIAMINE 100 MG TAB PO SCH (08:41)
[2022-06-02] MEDS: PANTOPRAZOLE 40 MG TABLET PO SCH (08:41)
[2022-06-02] MEDS: lisinopriL 20 MG TAB PO SCH ×2 (08:42→21:11)
[2022-06-02] MEDS: EZETIMIBE 10 MG TAB PO SCH (08:42)
[2022-06-02] MEDS: METOPROLOL TARTRATE 50 MG TAB PO SCH (08:42)
[2022-06-02] MEDS: hydrALAZINE HCL 50 MG TAB PO SCH ×3 (08:42→21:11)
[2022-06-02] MEDS: ASPIRIN 81 MG PO SCH (08:42)
[2022-06-02] MEDS: FOLIC ACID 1 MG TAB PO SCH (08:42)
[2022-06-02] MEDS: CYANOCOBALAMIN 1,000 MCG/ML 1 ML VIAL IM SCH (08:43)
[2022-06-02] MEDS: HEPARIN SODIUM,PORCINE/PF 5,000 UNIT/0.5 ML SYRINGE SQ SCH ×2 (08:43→21:11)
[2022-06-02] MEDS: ATORVASTATIN 20 MG TAB PO SCH (08:47)
[2022-06-02 10:51] LABS: Basophils % (A) 0 %; Eosinophils # (A) 0.1 k/uL (0-0.7); Eosinophils % (A) 2 %; HCT 40.8 % (39.0-53.0); Lymphocytes # (A) 0.8 k/uL (1.0-4.8); Lymphocytes % (A) 13 %; MCH 32.7 pg (25.0-35.0); MCHC 34.4 g/dL (31.0-37.0); MCV 94.9 fL (80.0-100.0); Mean Platelet Volume 11.2; Monocytes # (A) 0.3 k/uL (0-1.0); Monocytes % (A) 5 %; Neutrophils # (A) 5.3 k/uL (1.3-7.7); Neutrophils % (A) 80 %; Platelet Count 192 k/uL (150-450); RDW 12.4 % (11.5-15.5); WBC 6.6 k/uL (3.8-10.6)
[2022-06-02 10:55] LABS: African American GFR (CKD) >90 (>60 ml/min/1.73 sqM); Anion Gap 11 mmol/L; Blood Urea Nitrogen 14 mg/dL (9-20); Calcium 8.6 mg/dL (8.4-10.2); Carbon Dioxide 23 mmol/L (22-30); Chloride 103 mmol/L (98-107); Glucose 121 mg/dL (74-99); Non-African American GFR(CKD) 83 (>60 ml/min/1.73 sqM); Potassium 3.4 mmol/L (3.5-5.1); Sodium 137 mmol/L (137-145)
[2022-06-02] MEDS: amLODIPine 2.5 MG TAB PO SCH (12:37)
--- NOTE | 2022-06-02 14:09 | P.PN ---
Subjective Progress Note Date: 06/02/22 Patient is 81-year-old male with a known history of coronary artery disease status post stent placement, daily alcohol use, hypertension, hyperlipidemia, GERD was brought to the hospital by EMS. Patient's called the police after he has fallen consistently for the past 3 days. According to his patient stopped drinking about 8 days ago. He did not drink half a beer yesterday. Patient's states that last 3 days he got out of bed and has taken a fall. Last night around midnight she went to check on him after the fall and he was having a hard time speaking. And after 1 minute it resolved but did not notice any facial droop or for new focal weakness. Patient then became agitated and handcuffed by police and was brought to the hospital. Currently patient is sedated due to alcohol withdrawal symptoms and could not provide any history. Laboratory test showed WBC 8.6 hemoglobin 13.0 and platelets 137 Sodium 133 potassium 3.4 chloride 96 bicarb is 23 BUN 12 and creatinine 0.97 and magnesium 1.4. Ammonia less than 9 Troponin 0.038, 0.0790.088 TSH 0.900 Urinalysis shows trace glucose and ketones. UDS negative Serum alcohol level is less than 10. CT brain showed cerebral atrophy and chronic small vessel ischemia. Hydrocephalus. No acute intracranial abnormality. CT angiogram showed within the normal limits of the exam no significant intracranial extracranial angiographic abnormality. No evidence of hemodynamic stenosis. Chest x-ray showed no acute cardiopulmonary disease. 05/28/2022 Patient is currently lying in the bed. Lethargic and drowsy and unable to provide any history. Blood pressure is elevated and was given IV hydralazine this morning. Started back on home blood pressure medications. Patient has been afebrile. No nausea vomiting. Still having shakiness and withdrawal symptoms. Continued on alcohol withdrawal protocol. Cardiology is on board. Echocardiogram showed normal left ventricular systolic function. Technically difficult study. Laboratory data showed WBC 16.6 hemoglobin 16.0 and platelets 143 Sodium 134 potassium 3.6 chloride 99, BUN 10 and creatinine 0.87 and blood sugar 192., Vitamin B12 297 and TSH 1.7 05/29/2022 Patient is resting in bed. Awake and alert. Still drowsy. Blood pressure is elevated. No complaints of chest pain or shortness of breath. No nausea vomiting abdominal area. Tolerating minimal oral intake. Patient is being continued on IV hydration and WITHDRAWAL protocol. Laboratory data showed WBC went up to 16.6 hemoglobin 16.0 and platelets 143 sodium 134 potassium 3.6 chloride 102 bicarb is 18 BUN 9 and creatinine 0.7. Blood sugar 112 Patient is on clonidine patch, hydralazine and lisinopril. Cardiology is on board. Patient was seen by vascular surgery with left forearm wound. 05/30/2022 Patient is currently lying in the bed. Awake and alert. Denied any complains of chest pain or shortness of breath. Blood pressure is still uncontrolled. Patient also getting IV hydration normal saline. Patient is also being continued on alcohol withdrawal protocol. Otherwise denied any nausea or vomiting. No complaints of pain. Wound care was consulted for the left forearm wound and one on the scalp. Patient has been afebrile. Laboratory data showed WBC improved to 11.4 hemoglobin 14.8 and platelets 100 Sodium potassium 3.91143 bicarb is 22 BUN 11 creatinine 0.7. Cardiology is on board. 05/31/2022 admitted to the hospital due to multiple falls and alcohol intoxication/withdrawal symptoms. Patient is currently lying in the bed. Awake alert and oriented. She will respond. Mental status seems to be improving. Blood pressure is better today. Patient was seen by neurology due to multiple falls and possible TIA. MRI of the brain was ordered. Patient is afebrile. No nausea vomiting abdominal pain or diarrhea. Continued alcohol withdrawal protocol. 06/01/22. Patient seen and examined. at the bedside. Patient much more stronger compared to yesterday according to the . Patient was convinced about going to rehab and she agrees at this time. Vital signs 06/02/22. Patient seen and examined. Patient was slightly bradycardic this morning, cardiology adjusted the dose of Lopressor. Will monitor today. at the bedside. Denies any lightheadedness or dizziness REVIEW OF SYSTEMS: CONSTITUTIONAL: No fever, no malaise, no fatigue. HEENT: No recent visual problems or hearing problems. Denied any sore throat. CARDIOVASCULAR: No chest pain, orthopnea, PND, no palpitations, no syncope. PULMONARY: No shortness of breath, no cough, no hemoptysis. GASTROINTESTINAL: No diarrhea, no nausea, no vomiting, no abdominal pain. PHYSICAL EXAMINATION: GENERAL: The patient is alert , not in any acute distress. Well developed, well nourished. HEENT: Pupils are round and equally reacting to light. EOMI. No scleral icterus. No conjunctival pallor. Normocephalic, atraumatic. No pharyngeal erythema. No thyromegaly. CARDIOVASCULAR: S1 and S2 present. No murmurs, rubs, or gallops. PULMONARY: Chest is clear to auscultation, no wheezing or crackles. ABDOMEN: Soft, nontender, nondistended, normoactive bowel sounds. No palpable organomegaly. MUSCULOSKELETAL: No joint swelling or deformity. EXTREMITIES: No cyanosis, clubbing, or pedal edema. NEUROLOGICAL: Gross neurological examination did not reveal any focal deficits. SKIN: No rashes. Assessment and plan Acute alcohol withdrawal symptoms. Patient stopped drinking about 8 days ago. altered mental status secondary to above Frequent falls, with brisk reflexes and bilateral Babinski. May be related to possible peripheral neuropathy/B12 deficiency, rule out CVA, rule out spinal stenosis. Elevated troponin level possible NSTEMI cannot be excluded. hypertensive urgency Coronary disease history of stent placement Hypokalemia and hypomagnesemia Hypovolemic hyponatremia Uncontrolled hypertension Daily alcohol use DVT prophylax with heparin subcu Plan: Continue telemetry monitoring. Lopressor decreased to 25 mg twice a day Continue lisinopril 20 mg daily Continue with alcohol withdrawal protocol. Continue Catapres patch 0.3, hydralazine . Thiamine and multivitamins and follow-up closely. We will hold hydrochlorothiazide. b12 supplementation PT and OT recommended rehab DVT prophylaxis: Objective - Vital Signs Vital signs: Vital Signs Temp 97.8 F 06/02/22 11:32 Pulse 45 L 06/02/22 11:32 Resp 16 06/02/22 11:32 BP 132/61 06/02/22 11:32 Pulse Ox 99 06/02/22 11:32 FiO2 Intake & Output 06/01/22 06/02/22 06/02/22 18:59 06:59 18:59 Intake Total 778 0 Output Total 200 650 Balance 578 -650 0 Weight 76.7 kg Intake: Oral 778 0 Output: Urine 200 650 Other: Voiding Method Toilet Urinal Urinal - Labs CBC & Chem 7: 06/02/22 08:33 06/02/22 08:33 Labs: Abnormal Lab Results - Last 24 Hours (Table) 05/30/22 06/02/22 06/02/22 Range/Units 13:59 08:33 08:33 Lymphocytes # 0.8 L (1.0-4.8) k/uL Potassium 3.4 L (3.5-5.1) mmol/L Glucose 121 H (74-99) mg/dL Total PSA 20.0 H (<=4.0) ng/mL
[2022-06-02] MEDS: PYRIDOXINE 50 MG TAB PO SCH (17:16)
[2022-06-02 18:55] LABS: Glucose,Whole Blood 104 mg/dL (70-110)
[2022-06-02] MEDS: METOPROLOL TARTRATE 25 MG TAB PO SCH (21:11)
[2022-06-03] MEDS: POTASSIUM CHLORIDE ER 20 MEQ TAB.ER PO SCH ×4 (00:43→10:03)
--- NOTE | 2022-06-03 08:24 | PN ---
PROGRESS NOTE SUBJECTIVE: Mr. Mckeon is doing better today. His mentation is good. He seems to have probably small-vessel disease and dementia and on top of which had some alcohol withdrawal. However, his blood pressure is slightly elevated, I will add 2.5 mg of amlodipine and continue metoprolol tartrate 25 mg b.i.d. There is no evidence of any CVA. The ejection fraction is normal on echocardiogram. OBJECTIVE: VITAL SIGNS: Stable. HEART: S1, S2 heard normally, short systolic murmur noted. LUNGS: Clear. ABDOMEN: Exam unchanged. LOWER EXTREMITIES: Exam unchanged. Patient can be discharged whenever okay by the admitting doctor. We will see him p.[email or web address]. MMODL / IJN: [id number] /
--- NOTE | 2022-06-03 09:44 | P.PN ---
Subjective Progress Note Date: 06/02/22 Patient was seen for a follow-up. Patient is doing much better. Patient's was also present today.patient denies any new neurological symptoms. Objective - Vital Signs Vital signs: Vital Signs Temp 97.8 F 06/02/22 11:32 Pulse 76 06/02/22 14:00 Resp 18 06/02/22 14:00 BP 132/61 06/02/22 11:32 Pulse Ox 99 06/02/22 11:32 FiO2 Intake & Output 06/01/22 06/02/22 06/02/22 18:59 06:59 18:59 Intake Total 778 0 Output Total 200 650 500 Balance 578 -650 -500 Weight 76.7 kg Intake: Oral 778 0 Output: Urine 200 650 500 Other: Voiding Method Toilet Urinal Urinal - Exam Patient is alert and awake. His mentation has much improved. Latency time to answer questions have much improved. Patient knows his date of , states is 82 years old, and thinks it is June 1967. He knows that he is in [facility]. He is hard of hearing. Patient knows name of the current president. He knows that he lives in the [facility]. Speech and language functions are normal. Patient has mildly positive bilateral palmomental reflex. Cranial nerves are normal. No significant myoclonic jerks of outstretched hands. - Labs CBC & Chem 7: 06/02/22 08:33 06/03/22 03:32 Labs: Abnormal Lab Results - Last 24 Hours (Table) 06/02/22 06/02/22 Range/Units 08:33 08:33 Lymphocytes # 0.8 L (1.0-4.8) k/uL Potassium 3.4 L (3.5-5.1) mmol/L Glucose 121 H (74-99) mg/dL Assessment and Plan Assessment: * Questionable TIA manifesting with transient speech difficulty lasted for a few minutes. No evidence of CVA on MRI of the brain. * Frequent falls, with brisk reflexes and bilateral Babinski. May be related to possible peripheral neuropathy/B12/folate/B6 deficiency. No evidence of CVA, no evidence of spinal stenosis. * Altered mental status, probably delirium, likely from alcohol withdrawal. * Probable underlying dementia, mild to moderate in degree. Patient's mentation is improving likely due to improvement in the delirium. 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 * Hyperlipidemia * B12 deficiency * CAD Plan: * MRI of the brain revealed no acute ischemic stroke. Some small vessel i schemic disease. I personally reviewed MRI, and no evidence of CVA. * MRI of the cervical spine showed no significant spinal stenosis. Some degenerative changes. * CTA of head and neck revealed "within the limitation of the exam, no significant intracranial or extracranial angiographic abnormality. No evidence of hemodynamic significant stenosis". * 2-D echo revealed technically difficult study for interpretation. Normal left ventricular systolic function. EF is 55-60%. Mild concentric LVH. Left atrial size is normal. * Lipid panel with cholesterol 160, LDL 77, HDL 66 and triglycerides 79. Continue Lipitor 20 mg. * B12 297, MMA 0.24, B6 low 6. Continue B12 replacement. We will start vitamin B6 replacement with biotoxin 50 mg daily. Patient also on folate 1 mg daily. * Hemoglobin A1c 5.3, RPR nonreactive. TSH normal 1.73. * Continue aspirin 81 mg * Telemetry showing sinus bradycardia. Cardiology already on board, adjusting medications. * EEG was abnormal due to background slowing of mild to moderate degree. This is suggestive of generalized cerebral dysfunction as can be seen with toxic metabolic encephalopathy or related to diffuse structural brain abnormality. Clinical correlation is recommended. No epileptiform activity was seen. * PT OT, evaluate gait. * Neurologically clear, if cleared by cardiology, PT and OT. Possible to rehab.
[2022-06-03] MEDS ORDERED: POTASSIUM BICARBONATE/CIT AC 20 MEQ TABLET.EFF PO ONE (10:03)
[2022-06-03] MEDS: SODIUM CHLORIDE 0.9% 1,000 ML IV SCH (10:04)
[2022-06-03] MEDS: HEPARIN SODIUM,PORCINE/PF 5,000 UNIT/0.5 ML SYRINGE SQ SCH (10:15)
[2022-06-03] MEDS: amLODIPine 2.5 MG TAB PO SCH (10:16)
[2022-06-03] MEDS: PANTOPRAZOLE 40 MG TABLET PO SCH (10:16)
[2022-06-03] MEDS: hydrALAZINE HCL 50 MG TAB PO SCH (10:16)
[2022-06-03] MEDS: MULTIVITAMINS, THERA 1 EACH TAB PO SCH (10:16)
[2022-06-03] MEDS: THIAMINE 100 MG TAB PO SCH (10:16)
[2022-06-03] MEDS: ATORVASTATIN 20 MG TAB PO SCH (10:16)
[2022-06-03] MEDS: lisinopriL 20 MG TAB PO SCH (10:16)
[2022-06-03] MEDS: FOLIC ACID 1 MG TAB PO SCH (10:16)
[2022-06-03] MEDS: EZETIMIBE 10 MG TAB PO SCH (10:16)
[2022-06-03] MEDS: ASPIRIN 81 MG PO SCH (10:16)
--- NOTE | 2022-06-03 10:43 | P.PN ---
Subjective Progress Note Date: 06/03/22 HISTORY OF PRESENT ILLNESS: Patient examined this point the bedside. Patient denies chest pain or pressure. He denies shortness of breath. Patient's blood pressure remains elevated this morning with a systolic in the 170s. Per nursing, patient was having 2 second pauses overnight. Telemetry reveals sinus mechanism. 06/03/2022 Patient examined at the bedside. Patient denies chest pain or pressure. Denies SOB. Patient having episodes of bradycardia with dropped beats overnight while sleeping. Telemetry this morning reveals sinus mechanism. PHYSICAL EXAM: VITAL SIGNS: Reviewed. GENERAL: Well-developed in no acute distress. NECK: Supple. No JVD or thyromegaly LUNGS: Respirations even and unlabored. Lungs essentially clear to auscultation bilaterally. HEART: Regular rate and rhythm. S1 and S2 heard. EXTREMITIES: Normal range of motion. No clubbing or cyanosis. Peripheral pulses intact. No lower extremity edema ASSESSMENT: Altered mental status Alcohol withdrawal Coronary artery disease with previous stenting Hypertension Hyperlipidemia Daily alcohol use Elevated troponins, acute coronary syndrome ruled out, of unclear etiology PLAN: Continue current cardiac medications Discontinue beta yolanda now and at discharge Patient may be discharged this afternooon from a cardiac standpoint Nurse practitioner note has been reviewed by physician. Signing provider agrees with the documented findings, assessment, and plan of care. Objective - Vital Signs Vital signs: Vital Signs Temp 98.2 F 06/03/22 04:00 Pulse 69 06/03/22 04:00 Resp 18 06/03/22 04:00 BP 175/79 06/03/22 04:00 Pulse Ox 98 06/03/22 04:00 FiO2 Intake & Output 06/02/22 06/03/22 06/03/22 18:59 06:59 18:59 Intake Total 0 Output Total 500 500 Balance -500 -500 Weight 76.7 kg Intake: Oral 0 Output: Urine 500 500 Other: Voiding Method Urinal Urinal # Voids 2 - Labs CBC & Chem 7: 06/02/22 08:33 06/03/22 03:32 Labs: Abnormal Lab Results - Last 24 Hours (Table) 06/02/22 06/02/22 06/03/22 Range/Units 08:33 08:33 03:32 Lymphocytes # 0.8 L (1.0-4.8) k/uL Potassium 3.4 L 3.3 L (3.5-5.1) mmol/L Glucose 121 H (74-99) mg/dL
[2022-06-03 11:59] VITALS: BP 137/65; PULSE 67; RESP 16; TEMP 98.4
[2022-06-03] MEDS: CYANOCOBALAMIN 1,000 MCG/ML 1 ML VIAL IM SCH (12:07)
[2022-06-03] MEDS: PYRIDOXINE 50 MG TAB PO SCH (12:08)
--- NOTE | 2022-06-03 13:05 | P.DS ---
Providers Date of admission: 05/27/22 03:43 Expected date of discharge: 06/03/22 Attending physician: Cam Wong Consults: 05/27/22 03:27 Consult Physician Urgent Consulting Provider: Silas Black Consult Reason/Comments: Elevated troponin, cardiac arrhythmia Do you want consulting provider notified?: Yes, Notify in am 05/28/22 14:31 Consult Physician Routine Consulting Provider: Adrian Telles Consult Reason/Comments: Left arm tissue injury Do you want consulting provider notified?: Yes 05/30/22 13:27 Consult Physician Routine Consulting Provider: Zeke Chen Consult Reason/Comments: hypertension/confusion Do you want consulting provider notified?: Yes Primary care physician: Silas Black [facility] Course: Discharge diagnoses; Acute alcohol withdrawal symptoms. Patient stopped drinking about 8 days ago. altered mental status secondary to above Frequent falls, with brisk reflexes and bilateral Babinski. May be related to possible peripheral neuropathy/B12 deficiency, rule out CVA, rule out spinal stenosis. Elevated troponin level possible NSTEMI cannot be excluded. hypertensive urgency Coronary disease history of stent placement Hypokalemia and hypomagnesemia Hypovolemic hyponatremia Uncontrolled hypertension Daily alcohol use DVT prophylax with heparin subcu Plan: Cardiology reviewed patient's blood pressure medications, they discontinued beta blockers because of bradycardia. Dictated the patient for discharge Thiamine and multivitamins and follow-up closely. Outpatient follow-up with PCP, cardiology and neurology Hospital course; Patient is 81-year-old male with a known history of coronary artery disease status post stent placement, daily alcohol use, hypertension, hyperlipidemia, GERD was brought to the hospital by EMS. Patient's called the police after he has fallen consistently for the past 3 days. According to his patient stopped drinking about 8 days ago. He did not drink half a beer yesterday. Patient's states that last 3 days he got out of bed and has taken a fall. Last night around midnight she went to check on him after the fall and he was having a hard time speaking. And after 1 minute it resolved but did not notice any facial droop or for new focal weakness. Patient then became agitated and handcuffed by police and was brought to the hospital. Currently patient is sedated due to alcohol withdrawal symptoms and could not provide any history. Laboratory test showed WBC 8.6 hemoglobin 13.0 and platelets 137 Sodium 133 potassium 3.4 chloride 96 bicarb is 23 BUN 12 and creatinine 0.97 and magnesium 1.4. Ammonia less than 9 Troponin 0.038, 0.0790.088 TSH 0.900 Urinalysis shows trace glucose and ketones. UDS negative Serum alcohol level is less than 10. CT brain showed cerebral atrophy and chronic small vessel ischemia. Hydrocephalus. No acute intracranial abnormality. CT angiogram showed within the normal limits of the exam no significant intracranial extracranial angiographic abnormality. No evidence of hemodynamic stenosis. Chest x-ray showed no acute cardiopulmonary disease. 05/28/2022 Patient is currently lying in the bed. Lethargic and drowsy and unable to provide any history. Blood pressure is elevated and was given IV hydralazine this morning. Started back on home blood pressure medications. Patient has been afebrile. No nausea vomiting. Still having shakiness and withdrawal symptoms. Continued on alcohol withdrawal protocol. Cardiology is on board. Echocardiogram showed normal left ventricular systolic function. Technically difficult study. Laboratory data showed WBC 16.6 hemoglobin 16.0 and platelets 143 Sodium 134 potassium 3.6 chloride 99, BUN 10 and creatinine 0.87 and blood sugar 192., Vitamin B12 297 and TSH 1.7 05/29/2022 Patient is resting in bed. Awake and alert. Still drowsy. Blood pressure is elevated. No complaints of chest pain or shortness of breath. No nausea vom iting abdominal area. Tolerating minimal oral intake. Patient is being continued on IV hydration and WITHDRAWAL protocol. Laboratory data showed WBC went up to 16.6 hemoglobin 16.0 and platelets 143 sodium 134 potassium 3.6 chloride 102 bicarb is 18 BUN 9 and creatinine 0.7. Blood sugar 112 Patient is on clonidine patch, hydralazine and lisinopril. Cardiology is on board. Patient was seen by vascular surgery with left forearm wound. 05/30/2022 Patient is currently lying in the bed. Awake and alert. Denied any complains of chest pain or shortness of breath. Blood pressure is still uncontrolled. Patient also getting IV hydration normal saline. Patient is also being continued on alcohol withdrawal protocol. Otherwise denied any nausea or vomiting. No complaints of pain. Wound care was consulted for the left forearm wound and one on the scalp. Patient has been afebrile. Laboratory data showed WBC improved to 11.4 hemoglobin 14.8 and platelets 100 Sodium potassium 3.76985 bicarb is 22 BUN 11 creatinine 0.7. Cardiology is on board. 05/31/2022 admitted to the hospital due to multiple falls and alcohol intoxication/withdrawal symptoms. Patient is currently lying in the bed. Awake alert and oriented. She will respond. Mental status seems to be improving. Blood pressure is better today. Patient was seen by neurology due to multiple falls and possible TIA. MRI of the brain was ordered. Patient is afebrile. No nausea vomiting abdominal pain or diarrhea. Continued alcohol withdrawal protocol. 06/01/22. Patient seen and examined. at the bedside. Patient much more stronger compared to yesterday according to the . Patient was convinced about going to rehab and she agrees at this time. Vital signs 06/02/22. Patient seen and examined. Patient was slightly bradycardic this morning, cardiology adjusted the dose of Lopressor. Will monitor today. at the bedside. Denies any lightheadedness or dizziness 06/03/22. Patient seen and examined. Beta blockers has been discontinued by cardiology. Continue current blood pressure medications as listed by cardiology. PHYSICAL EXAMINATION: GENERAL: The patient is alert not in any acute distress. Well developed, well nourished. HEENT: Pupils are round and equally reacting to light. EOMI. No scleral icterus. No conjunctival pallor. Normocephalic, atraumatic. No pharyngeal erythema. No thyromegaly. CARDIOVASCULAR: S1 and S2 present. No murmurs, rubs, or gallops. PULMONARY: Chest is clear to auscultation, no wheezing or crackles. ABDOMEN: Soft, nontender, nondistended, normoactive bowel sounds. No palpable organomegaly. MUSCULOSKELETAL: No joint swelling or deformity. EXTREMITIES: No cyanosis, clubbing, or pedal edema. NEUROLOGICAL: Gross neurological examination did not reveal any focal deficits. SKIN: No rashes. Patient Condition at Discharge: Fair Plan - Discharge Summary Discharge Rx Participant: No New Discharge Prescriptions: New cloNIDine 0.3 MG/24HR PATCH [Catapres-TTS] 1 patch TRANSDERM Q7D #3 patch Thiamine [Vitamin B-1] 100 mg PO DAILY tab hydrALAZINE HCL [Apresoline] 50 mg PO TID #30 tab Folic Acid 1 mg PO DAILY tab Multivitamins, Thera [Multivitamin (formulary)] 1 each PO DAILY tab amLODIPine [Norvasc] 2.5 mg PO DAILY #30 tab Pyridoxine [Vitamin B-6] 50 mg PO DAILY tab lisinopriL [Zestril] 20 mg PO BID #30 tab Continue Omeprazole 20 mg PO DAILY Ezetimibe [Zetia] 10 mg PO DAILY Aspirin EC [Ecotrin Low Dose] 81 mg PO DAILY Fish Oil/Dha/Epa [Fish Oil 1,200 mg Fish Oil] 1 cap PO DAILY Atorvastatin [Lipitor] 20 mg PO Q48H Discontinued lisinopriL [Zestril] 5 mg PO DAILY Metoprolol Tartrate [Lopressor] 50 mg PO DAILY hydroCHLOROthiazide [Hydrodiuril] 25 mg PO DAILY Discharge Medication List Aspirin EC [Ecotrin Low Dose] 81 mg PO DAILY 05/27/22 [History] Atorvastatin [Lipitor] 20 mg PO Q48H 05/27/22 [History] Ezetimibe [Zetia] 10 mg PO DAILY 05/27/22 [History] Fish Oil/Dha/Epa [Fish Oil 1,200 mg Fish Oil] 1 cap PO DAILY 05/27/22 [History] Omeprazole 20 mg PO DAILY 05/27/22 [History] Folic Acid 1 mg PO DAILY tab 06/03/22 [Rx] Multivitamins, Thera [Multivitamin (formulary)] 1 each PO DAILY tab 06/03/22 [Rx] Pyridoxine [Vitamin B-6] 50 mg PO DAILY tab 06/03/22 [Rx] Thiamine [Vitamin B-1] 100 mg PO DAILY tab 06/03/22 [Rx] amLODIPine [Norvasc] 2.5 mg PO DAILY #30 tab 06/03/22 [Rx] cloNIDine 0.3 MG/24HR PATCH [Catapres-TTS] 1 patch TRANSDERM Q7D #3 patch 06/03/22 [Rx] hydrALAZINE HCL [Apresoline] 50 mg PO TID #30 tab 06/03/22 [Rx] lisinopriL [Zestril] 20 mg PO BID #30 tab 06/03/22 [Rx] Follow up Appointment(s)/Referral(s): Harshad Ayers MD [REFERRING] - 1-2 days Rene Goel MD [STAFF PHYSICIAN] - 1 Week
[2022-06-03] MEDS: METOPROLOL TARTRATE 25 MG TAB PO SCH (14:59)
== END 2022-06-03 16:00 | DRG 896 ==
LOC: EC 00:54 → 3SCARD 03:43
PROVIDERS: ADMIT Hospitalist; ATTEND Hospitalist
DX: F10.231 Alcohol dependence with withdrawal delirium (principal); I21.3 ST elevation (STEMI) myocardial infarction of unspecified site; G91.9 Hydrocephalus, unspecified; E87.1 Hypo-osmolality and hyponatremia; E53.8 Deficiency of other specified B group vitamins; E78.5 Hyperlipidemia, unspecified; E83.42 Hypomagnesemia; E86.1 Hypovolemia; E87.6 Hypokalemia; F03.B0 Unspecified dementia, moderate, without behavioral disturbance, psychotic disturbance, mood disturbance, and anxiety; G31.2 Degeneration of nervous system due to alcohol; I44.1 Atrioventricular block, second degree; G62.9 Polyneuropathy, unspecified; I73.9 Peripheral vascular disease, unspecified; I10 Essential (primary) hypertension; I16.0 Hypertensive urgency; I25.10 Atherosclerotic heart disease of native coronary artery without angina pectoris; I25.2 Old myocardial infarction; I49.3 Ventricular premature depolarization; Z86.73 Personal history of transient ischemic attack (TIA), and cerebral infarction without residual deficits; L98.492 Non-pressure chronic ulcer of skin of other sites with fat layer exposed; R29.6 Repeated falls; W19.XXXA Unspecified fall, initial encounter; T14.8XXA Other injury of unspecified body region, initial encounter; M48.00 Spinal stenosis, site unspecified; K21.9 Gastro-esophageal reflux disease without esophagitis; R45.1 Restlessness and agitation; Z28.311 Partially vaccinated for COVID-19; Z28.21 Immunization not carried out because of patient refusal; Z79.82 Long term (current) use of aspirin; Z79.899 Other long term (current) drug therapy; Z85.820 Personal history of malignant melanoma of skin; Z95.5 Presence of coronary angioplasty implant and graft
CPT/HCPCS: 36415; 70450; 70496; 70498; 70551; 71045; 72141; 80048; 80053; 80306; 80320; 81001; 82140; 82550; 82607; 82746; 82747; 82977; 83036; 83735; 83921; 84100; 84132; 84153; 84207; 84443; 84484; 85025; 85610; 85730; 86780; 93005; 93306; 94760; 95819; 96361; 96365; 96367; 96368; 96372; 96375; 99285

== ENCOUNTER 2022-06-04 04:56 | Emergency (ER) | payer MEDICARE ==
[2022-06-04] MEDS ORDERED: LORazepam 1 MG TAB PO STA (05:00)
--- NOTE | 2022-06-04 05:03 | ED ---
General Adult HPI - General Stated complaint: Recheck Time Seen by Provider: 06/04/22 05:00 - History of Present Illness Initial comments: Dictation was produced using [email or web address] dictation software. please excuse any grammatical, word or spelling errors. Chief Complaint: 81-year-old male presents emergency department for aggressive behavior History of Present Illness: Patient is a 81-year-old male presents emergency department for aggressive behavior. Patient currently a resident at night a lot. Patient allegedly tore the screen off of one of the windows. He said he did this because of hypertension. Patient has history of alcoholism and erratic behavior. There is no concern by [facility] about patient's mentation. There were not able to give patient any Ativan or sedated medications due to shortage at the facility. Sent patient here to receive some sedated medications. The ROS documented in this emergency department record has been reviewed and confirmed by me. Those systems with pertinent positive or negative responses have been documented in the HPI. All other systems are other negative and/or noncontributory. PHYSICAL EXAM: General Impression: Alert and oriented x3, not in acute distress HEENT: Normocephalic atraumatic, extra-ocular movements intact, pupils equal and reactive to light bilaterally, mucous membranes moist. Cardiovascular: Heart regular rate and rhythm Chest: Able to complete full sentences, no retractions, no tachypnea Abdomen: abdomen soft, non-tender, non-distended, no organomegaly Musculoskeletal: Pulses present and equal in all extremities, no peripheral edema Motor: no focal deficits noted Neurological: CN II-XII grossly intact, no focal motor or sensory deficits noted Psych: Normal affect and mood ED course: 81-year-old male presents emergency department for alleged aggressive behavior earlier today. Vital signs upon arrival are within acceptable limits. Patient has chronic wounds to his bilateral upper extremities. Patient is pleasant towards myself and ER staff. He is not showing signs of aggressive behavior. Patient understandable and coherent. Patient given oral Ativan discharge back to [facility]. - Related Data Home Medications Medication Instructions Recorded Confirmed Aspirin EC [Ecotrin Low Dose] 81 mg PO DAILY 05/27/22 05/27/22 Atorvastatin [Lipitor] 20 mg PO Q48H 05/27/22 05/27/22 Ezetimibe [Zetia] 10 mg PO DAILY 05/27/22 05/27/22 Fish Oil/Dha/Epa [Fish Oil 1,200 1 cap PO DAILY 05/27/22 05/27/22 mg Fish Oil] Omeprazole 20 mg PO DAILY 05/27/22 05/27/22 Previous Rx's Medication Instructions Recorded Cyanocobalamin (Vitamin B-12) 1,000 mcg PO DAILY #30 tablet 06/03/22 [Vitamin B-12] Folic Acid 1 mg PO DAILY tab 06/03/22 Multivitamins, Thera [Multivitamin 1 each PO DAILY tab 06/03/22 (formulary)] Pyridoxine [Vitamin B-6] 50 mg PO DAILY tab 06/03/22 Thiamine [Vitamin B-1] 100 mg PO DAILY tab 06/03/22 amLODIPine [Norvasc] 2.5 mg PO DAILY #30 tab 06/03/22 cloNIDine 0.3 MG/24HR PATCH 1 patch TRANSDERM Q7D #3 patch 06/03/22 [Catapres-TTS] hydrALAZINE HCL [Apresoline] 50 mg PO TID #30 tab 06/03/22 lisinopriL [Zestril] 20 mg PO BID #30 tab 06/03/22 Allergies Allergy/AdvReac Type Severity Reaction Status Date / Time No Known Allergies Allergy Verified 06/04/22 05:01 Review of Systems ROS Statement: Those systems with pertinent positive or pertinent negative responses have been documented in the HPI. ROS Other: All systems not noted in ROS Statement are negative. 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 History of Any Multi-Drug Resistant Organisms: None Reported Past Surgical History: Heart Catheterization With Stent Date of Last Stent Placement:: 2007 Past Psychological History: No Psychological Hx Reported Smoking Status: Never smoker Past Alcohol Use History: Daily Past Drug Use History: None Reported Course Vital Signs 06/04/22 05:01 Temperature 98.2 F Pulse Rate 84 Respiratory 15 Rate Blood Pressure 119/93 O2 Sat by Pulse 97 Oximetry Disposition Clinical Impression: Aggressive behavior Disposition: HOME SELF-CARE Condition: Good Instructions (If sedation given, give patient instructions): Lorazepam (By mouth) Is patient prescribed a controlled substance at d/c from ED?: No Referrals: Nonstaff,Physician [Primary Care Provider] - 1-2 days Time of Disposition: 05:03
[2022-06-04 05:05] VITALS: BP 119/93; PULSE 84; RESP 15; TEMP 98.2
== END 2022-06-04 05:28 | disposition home or self-care (01) ==
LOC: EC 04:56
DX: R45.6 Violent behavior (principal); K21.9 Gastro-esophageal reflux disease without esophagitis; E78.5 Hyperlipidemia, unspecified; I10 Essential (primary) hypertension; Z79.82 Long term (current) use of aspirin; Z79.899 Other long term (current) drug therapy
CPT/HCPCS: 99284

== ENCOUNTER 2023-03-30 10:05 | Inpatient (IN) | payer MEDICARE ==
--- NOTE | 2023-03-30 10:38 | ED ---
General Adult HPI - General Chief complaint: Neuro Symptoms/Deficit Stated complaint: Neuro Time Seen by Provider: 03/30/23 10:14 Source: patient, family, EMS, RN notes reviewed Mode of arrival: EMS Limitations: altered mental status - History of Present Illness Initial comments: Patient is a pleasant 82-year-old male presenting to the emergency department with concerns with speech problems. Last known well was yesterday around 3:30. Family is present and provides history as patient is a poor historian. Patient states he does not understand what I am saying. Patient answers questions inappropriately. Patient has no other specific complaint however did tell the nurse earlier that he had a headache. No known history of similar symptoms previously. Family noticed symptoms this morning around 8. - Related Data Home Medications Medication Instructions Recorded Confirmed Aspirin EC [Ecotrin Low Dose] 81 mg PO DAILY 05/27/22 03/30/23 Fish Oil/Dha/Epa [Fish Oil 1,200 1 cap PO DAILY 05/27/22 03/30/23 mg Fish Oil] Omeprazole 20 mg PO DAILY PRN 05/27/22 03/30/23 amLODIPine [Norvasc] 5 mg PO DAILY 03/30/23 03/30/23 Allergies Allergy/AdvReac Type Severity Reaction Status Date / Time No Known Allergies Allergy Verified 03/30/23 11:25 Review of Systems ROS Statement: Those systems with pertinent positive or pertinent negative responses have been documented in the HPI. ROS Other: All systems not noted in ROS Statement are negative. 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 Absent: tenderness Respiratory exam: Present: normal lung sounds bilaterally Cardiovascular Exam: Present: regular rate, normal rhythm GI/Abdominal exam: Present: soft. Absent: tenderness Extremities exam: Present: normal inspection Neurological exam: Present: alert, altered, CN II-XII intact. Absent: motor sen evon deficit Expanded Neurological exam: Present: protecting the airway Patient oriented to: Absent: person, place, time Speech: Present: fluid speech, expressive aphasia Cranial nerves: EOM's Intact: Normal Motor strength exam: RUE: 5, LUE: 5, RLE: 5, LLE: 5 Eye Response: (4) open spontaneously Motor Response: (6) obeys commands Verbal Response: (3) inappropriate words Psychiatric exam: Present: normal affect, normal mood Skin exam: Present: normal color Course Vital Signs 03/30/23 03/30/23 03/30/23 10:07 11:34 11:40 Temperature 97.7 F Pulse Rate 82 107 H 82 Respiratory 16 21 21 Rate Blood Pressure 212/111 224/140 234/163 O2 Sat by Pulse 98 Oximetry 03/30/23 03/30/23 03/30/23 11:45 12:00 13:00 Temperature Pulse Rate 92 85 93 Respiratory 22 11 L 18 Rate Blood Pressure 175/116 226/116 216/112 O2 Sat by Pulse 96 96 Oximetry - Reevaluation(s) Reevaluation #1: 03/30/23 10:37 EKG #2 does show sinus rhythm with a rate of 72. Occasional missed beats which could represent second-degree type II sporadic. Normal axis. Normal QRS. No acute ST. Interpreted by myself. Rhythm strip done. Patient placed on rhythm strip to monitor for dysrhythmia as there is questionable EKG changes. There is appearance of missed beats several times throughout the rhythm strip which could represent second-degree type II. EKG Findings - EKG Results: EKG: interpreted by ERMD (Sinus rhythm with appearance of second degree type II block), normal axis, normal QRS, normal ST/T Medical Decision Making - Medical Decision Making Was pt. sent in by a medical professional or institution (, PA, HUMAN RESOURCES OPERATIONS DIRECTOR, urgent care, hospital, or snf...) When possible be specific @ -No Did you speak to anyone other than the patient for history (EMS, parent, family, police, friend...)? What history was obtained from this source @ -Family is present and provides history as patient is unable to Did you review nursing and triage notes (agree or disagree)? Why? @ -I reviewed and agree with nursing and triage notes Were old charts reviewed (outside hosp., previous admission, EMS record, old EKG, old radiological studies, urgent care reports/EKG's, snf records)? Report findings @ -No old charts were reviewed Differential Diagnosis (chest pain, altered mental status, abdominal pain women, abdominal pain men, vaginal bleeding, weakness, fever, dyspnea, syncope, headache, dizziness, GI bleed, back pain, seizure, CVA, palpatations, mental health, musculoskeletal)? @ -Differential Altered Mental Status: Hypoglycemia, DKA, hypercapnia, ETOH, overdose, CO poisoning, trauma, myxedema coma, HTN encephalopathy, infection, encephalitis, psychosis, intercranial hemorrhage, hepatic encephalopathy, meningitis, CVA, this is not meant to be an all-inclusive list EKG interpreted by me (3pts min.). @ -As above X-rays interpreted by me (1pt min.). @ -Chest x-ray shows no acute process CT interpreted by me (1pt min.). @ -CT scan the brain does not reveal large mass or hemorrhage U/S interpreted by me (1pt. min.). @ -None done What testing was considered but not performed or refused? (CT, X-rays, U/S, labs)? Why? @ -None What meds were considered but not given or refused? Why? @ -None Did you discuss the management of the patient with other professionals (professionals i.e. , PA, HUMAN RESOURCES OPERATIONS DIRECTOR, lab, RT, psych nurse, psychiatric social worker, cabana attendant, teacher, division officer weapons department, returned case inspector)? Give summary @ -Case was discussed with Dr. steen, who will admit covering hospital call. Was smoking cessation discussed for >3mins.? @ -No Was critical care preformed (if so, how long)? @ -No Were there social determinants of health that impacted care today? How? (Homelessness, low income, unemployed, alcoholism, drug addiction, transportation, low edu. Level, literacy, decrease access to med. care, snf, rehab)? @ -No Was there de-escalation of care discussed even if they declined (Discuss DNR or withdrawal of care, Hospice)? DNR status @ -No What co-morbidities impacted this encounter? (DM, HTN, Smoking, COPD, CAD, Cancer, CVA, ARF, Chemo, Hep., AIDS, mental health diagnosis, sleep apnea, morbid obesity)? @ -None Was patient admitted / discharged? Hospital course, mention meds given and route, prescriptions, significant lab abnormalities, going to OR and other pertinent info. @ -EKG has questionable Mobitz 2 and cardiology will be consulted for this. Patient has altered mental status and excessive aphasia, concern for stroke. Neurology will be consult. Patient will be admitted. Patient reevaluated and updated. Patient is unchanged. Admission orders written. Undiagnosed new problem with uncertain prognosis? @ -No Drug Therapy requiring intensive monitoring for toxicity (Heparin, Nitro, Insulin, Cardizem)? @ -No Were any procedures done? @ -No Diagnosis/symptom? @ -Altered mental status, Mobitz 2 Acute, or Chronic, or Acute on Chronic? @ -Acute, acute Uncomplicated (without systemic symptoms) or Complicated (systemic symptoms)? @ -default Side effects of treatment? @ -No Exacerbation, Progression, or Severe Exacerbation? @ -No Poses a threat to life or bodily function? How? (Chest pain, [place], [place], pneumonia, PE, COPD, DKA, ARF, appy, cholecystitis, CVA, Diverticulitis, Homicidal, Suicidal, threat to staff... and all critical care pts) @ -No - Lab Data Result diagrams: 03/30/23 10:45 03/30/23 10:45 Lab Results 03/30/23 03/30/23 03/30/23 Range/Units 10:45 10:45 10:45 WBC 10.0 (3.8-10.6) k/uL RBC 5.30 (4.30-5.90) m/uL Hgb 16.9 (13.0-17.5) gm/dL Hct 49.4 (39.0-53.0) % MCV 93.2 (80.0-100.0) fL MCH 31.9 (25.0-35.0) pg MCHC 34.2 (31.0-37.0) g/dL RDW 13.3 (11.5-15.5) % Plt Count 198 (150-450) k/uL MPV 9.1 Neutrophils % 73 % Lymphocytes % 20 % Monocytes % 4 % Eosinophils % 1 % Basophils % 0 % Neutrophils # 7.3 (1.3-7.7) k/uL Lymphocytes # 2.0 (1.0-4.8) k/uL Monocytes # 0.4 (0-1.0) k/uL Eosinophils # 0.1 (0-0.7) k/uL Basophils # 0.0 (0-0.2) k/uL PT 11.0 (9.0-12.0) sec INR 1.0 (<1.2) APTT 22.3 (22.0-30.0) sec Sodium 140 (137-145) mmol/L Potassium 3.7 (3.5-5.1) mmol/L Chloride 102 (98-107) mmol/L Carbon Dioxide 25 (22-30) mmol/L Anion Gap 13 mmol/L BUN 10 (9-20) mg/dL Creatinine 1.04 (0.66-1.25) mg/dL Est GFR (CKD-EPI)AfAm 77 (>60 ml/min/1.73 sqM) Est GFR (CKD-EPI)NonAf 66 (>60 ml/min/1.73 sqM) Glucose 184 H (74-99) mg/dL Calcium 9.0 (8.4-10.2) mg/dL Total Bilirubin 0.8 (0.2-1.3) mg/dL AST 19 (17-59) U/L ALT 12 (4-49) U/L Alkaline Phosphatase 102 (38-126) U/L Troponin I (0.000-0.034) ng/mL Total Protein 7.6 (6.3-8.2) g/dL Albumin 4.3 (3.5-5.0) g/dL 03/30/23 Range/Units 10:45 WBC (3.8-10.6) k/uL RBC (4.30-5.90) m/uL Hgb (13.0-17.5) gm/dL Hct (39.0-53.0) % MCV (80.0-100.0) fL MCH (25.0-35.0) pg MCHC (31.0-37.0) g/dL RDW (11.5-15.5) % Plt Count (150-450) k/uL MPV Neutrophils % % Lymphocytes % % Monocytes % % Eosinophils % % Basophils % % Neutrophils # (1.3-7.7) k/uL Lymphocytes # (1.0-4.8) k/uL Monocytes # (0-1.0) k/uL Eosinophils # (0-0.7) k/uL Basophils # (0-0.2) k/uL PT (9.0-12.0) sec INR (<1.2) APTT (22.0-30.0) sec Sodium (137-145) mmol/L Potassium (3.5-5.1) mmol/L Chloride (98-107) mmol/L Carbon Dioxide (22-30) mmol/L Anion Gap mmol/L BUN (9-20) mg/dL Creatinine (0.66-1.25) mg/dL Est GFR (CKD-EPI)AfAm (>60 ml/min/1.73 sqM) Est GFR (CKD-EPI)NonAf (>60 ml/min/1.73 sqM) Glucose (74-99) mg/dL Calcium (8.4-10.2) mg/dL Total Bilirubin (0.2-1.3) mg/dL AST (17-59) U/L ALT (4-49) U/L Alkaline Phosphatase (38-126) U/L Troponin I <0.012 (0.000-0.034) ng/mL Total Protein (6.3-8.2) g/dL Albumin (3.5-5.0) g/dL Disposition Clinical Impression: Altered mental status, Mobitz II Disposition: ADMITTED IP TO THIS [facility] Condition: Serious Is patient prescribed a controlled substance at d/c from ED?: No Referrals: Nonstaff,Physician [Primary Care Provider] - 1-2 days Time of Disposition: 13:03
[2023-03-30 10:58] LABS: Basophils % (A) 0 %; Eosinophils # (A) 0.1 k/uL (0-0.7); Eosinophils % (A) 1 %; HCT 49.4 % (39.0-53.0); HGB 16.9 gm/dL (13.0-17.5); Lymphocytes % (A) 20 %; MCH 31.9 pg (25.0-35.0); MCHC 34.2 g/dL (31.0-37.0); MCV 93.2 fL (80.0-100.0); Mean Platelet Volume 9.1; Monocytes # (A) 0.4 k/uL (0-1.0); Monocytes % (A) 4 %; Neutrophils # (A) 7.3 k/uL (1.3-7.7); Neutrophils % (A) 73 %; Platelet Count 198 k/uL (150-450); RDW 13.3 % (11.5-15.5)
[2023-03-30 11:11] LABS: Partial Thromboplastin Time 22.3 sec (22.0-30.0)
[2023-03-30 11:16] LABS: ALT 12 U/L (4-49); AST 19 U/L (17-59); African American GFR (CKD) 77 (>60 ml/min/1.73 sqM); Albumin 4.3 g/dL (3.5-5.0); Alkaline Phosphatase 102 U/L (38-126); Anion Gap 13 mmol/L; Blood Urea Nitrogen 10 mg/dL (9-20); Carbon Dioxide 25 mmol/L (22-30); Chloride 102 mmol/L (98-107); Glucose 184 mg/dL (74-99); Non-African American GFR(CKD) 66 (>60 ml/min/1.73 sqM); Potassium 3.7 mmol/L (3.5-5.1); Sodium 140 mmol/L (137-145); Total Bilirubin 0.8 mg/dL (0.2-1.3); Total Protein 7.6 g/dL (6.3-8.2)
--- NOTE | 2023-03-30 11:34 | XR ---
EXAMINATION TYPE: XR chest 1V DATE OF EXAM: 03/30/2023 11:16 AM COMPARISON: Chest radiographs from 05/30/2022 TECHNIQUE: XR chest 1V Frontal view of the chest. CLINICAL INDICATION:Male, 82 years old with history of altered mental status; FINDINGS: Patient is rotated which limits evaluation. Lungs/Pleura: There is no evidence of pleural effusion, focal consolidation, or pneumothorax. Pulmonary vascularity: Unremarkable. Heart/mediastinum: Cardiomediastinal silhouette is prominent in size. Atherosclerotic calcifications are seen in the aorta. Musculoskeletal: No acute osseous pathology. Bilateral shoulder arthropathy. IMPRESSION: No acute cardiopulmonary disease/process.
--- NOTE | 2023-03-30 11:41 | CT ---
EXAMINATION TYPE: CT brain wo con CT DLP: 1217.4 mGycm, Automated exposure control for dose reduction was used. DATE OF EXAM: 03/30/2023 11:17 AM COMPARISON: CT brain 05/27/2022 CLINICAL INDICATION:Male, 82 years old with history of Altered mental status, TECHNIQUE: Brain: Multiple axial CT images of the brain were obtained without IV contrast. Coronal and sagittal reformats reviewed. FINDINGS: Brain: Extra-axial spaces: No abnormal extra-axial fluid collections. Ventricular system: Stable dilatation of the lateral ventricles. Cerebral parenchyma: Cerebral atrophy. No acute intraparenchymal hemorrhage or mass effect. The maloney -white junction is well differentiated. Confluent hypoattenuating areas are seen within the periventr icular and subcortical white matter. Cerebellum: Unremarkable. Mass effect: No evidence of midline shift. Intracranial vasculature: Atherosclerotic calcifications of the intracranial vessels. Soft tissues: Normal. Calvarium/osseous structures: No depressed skull fracture. Paranasal sinuses and mastoid air cells: Mild mucosal thickening in the posterior right ethmoid sinus . The mastoid air cells are clear. Visualized orbits: Orbital contents are intact. IMPRESSION: 1. No acute intraparenchymal hemorrhage or CT evidence for acute ischemia 2. Stable dilatation of both lateral ventricles which may be due to cerebral atrophy versus normal pr essure hydrocephalus. 3. Nonspecific white matter changes, likely secondary to chronic small vessel ischemic disease.
[2023-03-30] MEDS ORDERED: ONDANSETRON 4 MG/2 ML VIAL IVP STA (11:58)
[2023-03-30] MEDS ORDERED: ASPIRIN 325 MG TAB PO STA (13:04)
[2023-03-30] MEDS ORDERED: amLODIPine 5 MG TAB PO STA (13:14)
[2023-03-30 13:45] LABS: Amphetamine Screen,Urine Not Detected (NotDetected); Barbiturate Screen,Urine Not Detected (NotDetected); Benzodiazepines Screen,Urine Not Detected (NotDetected); Cocaine Screen,Urine Not Detected (NotDetected); Methadone Screen, Urine Not Detected (NotDetected); Opiate Screen,Urine Not Detected (NotDetected); Oxycodone Screen, Urine Not Detected (NotDetected); Phencyclidine Screen,Urine Not Detected (NotDetected); Tricyclic Antidepressant,Urine Not Detected (NotDetected); Urn Cannabinoid Scrn Not Detected (NotDetected)
--- NOTE | 2023-03-30 14:05 | US ---
EXAMINATION TYPE: US carotid duplex BILAT DATE OF EXAM: 03/30/2023 COMPARISON: CTA head and neck 05/27/2022 CLINICAL INDICATION: Male, 82 years old with history of Stenosis; AMS TECHNIQUE: Carotid duplex ultrasound examination. Indirect Doppler criteria was utilized. FINDINGS: EXAM MEASUREMENTS: RIGHT: Peak Systolic Velocity (PSV) cm/sec ----- Right CCA: 43.5 ----- Right ICA: 70.3 ----- Right ECA: 97.8 ICA/CCA ratio: 1.6 RIGHT: End Diastole cm/sec ----- Right CCA: 10.4 ----- Right ICA: 10.9 ----- Right ECA: 6.5 LEFT: Peak Systolic Velocity (PSV) cm/sec ----- Left CCA: 89.8 ----- Left ICA: 155.4 ----- Left ECA: 120.0 ICA/CCA ratio: 1.7 LEFT: End Diastole cm/sec ----- Left CCA: 9.1 ----- Left ICA: 11.6 ----- Left ECA: 0.0 VERTEBRALS (direction of flow): Right Vertebral: Unable to visualize Left Vertebral: Unable to visualize SENIOR MANAGER [employer]S NOTES: Extremely limited exam, altered mental status, pt uncooperative constantly movi ng during exam Very limited velocities obtained, limited views show heterogeneous plaque bilaterally IMPRESSION: Extremely limited examination due to patient's mental condition. 1. Moderate atherosclerotic plaque within both carotid bulbs. No hemodynamically significant stenosi s of the right internal carotid artery. Approximately 50-69% stenosis of the origin of the left inter nal carotid artery secondary to calcified plaque. Consider further evaluation with CTA neck due to li mitations. 2. Nonvisualization of the bilateral vertebral arteries. Criteria for Assigning % of Stenosis / Diameter reduction (Estimation based on the indirect measurements of the internal carotid artery velocities (ICA PSV). 1. Normal (no stenosis)=ICA PSV < 125 cm/s: ratio < 2.0: ICA EDV<40 cm/s. 2. Less than 50% stenosis=ICA PSV < 125 cm/s: ratio < 2.0: ICA EDV<40 cm/s. 3. 50 to 69% stenosis=ICA PSV of 125 to 230 cm/s: ration 2.0 ? 4.0: ICA EDV 40-100 cm/s. 4. Greater than 70% stenosis to near occlusion= ICA PSV > 230 cm/s: ratio > 4.0: ICA EDV > 100 cm/s. 5. Near occlusion= ICA PSV velocities may be low or undetectable: variable ratio and ICA EDV. 6. Total occlusion=unable to detect flow.
[2023-03-30] MEDS ORDERED: PANTOPRAZOLE 40 MG TABLET PO PRN (15:43)
--- NOTE | 2023-03-30 17:06 | P.CNNES ---
History of Present Illness Consult date: 03/30/23 Requesting physician: Bala Serna Reason for Consult: expressive aphasia, evaluate for CVA vs other History of Present Illness: This is an 82-year-old gentleman with history of multiple TIAs, bilateral carotid endarterectomies (on eifhr 2005/2006 and on left 2005), probably underlying dementia, coronary artery disease status post stent, uncontrolled hypertension who presented emergency department because of confusion and not being responsive. History was obtained from patient's was at bedside. Also some of the history is obtained from medical record. According to the patient he was last normal seen around 7 PM yesterday in which she went to bed and was doing well. Upon waking up but today this morning around 7 AM patient was not verbally responsive but would open his eyes. She stated that he had the episode like this in the past. Patient stated that his blood pressure is uncontrolled and it's in the 200s and he refuses to check his blood pressure and she stated his blood pressure run very high for years. In past he had episodes of aphasia in the past with elevated blood pressure. He is on aspirin 81 mg daily. She denies any history of seizures. Per his , stopped drinking alcohol seems for the past close to a year. She stated that his baseline he is alert oriented 3 responsive. He walks with a cane Note according the patient he had heart rate in the 40s in the past and was at a different hospital but he refused a pacemaker. Some other workup during his hospital visit consisted of: Patient blood pressure in our facility is in the 200s as high as 234/163. CBC with differential is unremarkable next line Chemistry panel: Glucose is 184 otherwise rest is on normal CV the head is reported as no acute intraparenchymal hemorrhage or CT evidence for acute ischemia. Stable dilation of both lateral ventricle which may be due to cerebral atrophy versus normal pressure hydrocephalus. I personally reviewed the CT head and I agree there is no acute or subacute ischemia and there is no evidence for bleed. I feel the patient has generalized atrophy and aspect the his dilation of ventricle is more due to his a appropriate age atrophy. Carotid duplex is reported as extremely limited examination due to the patient the mental condition. Moderate atherosclerotic plaque with both carotid bulb. No hemodynamically significant stenosis of the right internal carotid artery. Approximately 56 9% stenosis of the origin of left internal carotid artery secondary due to calcified plaque. Consider further evaluation with CTA and neck due to limitation. Non visualization of the bilateral vertebral artery. Review of Systems Review of system is limited but the pertinent positive and negative as per HPI. 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 History of Any Multi-Drug Resistant Organisms: None Reported Past Surgical History: Heart Catheterization With Stent Date of Last Stent Placement:: 2007 Past Psychological History: No Psychological Hx Reported Smoking Status: Never smoker Past Alcohol Use History: Daily Past Drug Use History: None Reported Medications and Allergies Home Medications Medication Instructions Recorded Confirmed Type Aspirin EC [Ecotrin Low Dose] 81 mg PO DAILY 05/27/22 03/30/23 History Fish Oil/Dha/Epa [Fish Oil 1,200 1 cap PO DAILY 05/27/22 03/30/23 History mg Fish Oil] Omeprazole 20 mg PO DAILY PRN 05/27/22 03/30/23 History amLODIPine [Norvasc] 5 mg PO DAILY 03/30/23 03/30/23 History Allergies Allergy/AdvReac Type Severity Reaction Status Date / Time No Known Allergies Allergy Verified 03/30/23 11:25 Physical Examination - Vital Signs Vital Signs: Vital Signs Temp Pulse Resp BP Pulse Ox 03/30/23 16:27 86 16 190/113 95 03/30/23 16:06 88 18 212/107 97 03/30/23 15:07 220/122 03/30/23 15:06 99 20 220/122 97 03/30/23 13:07 93 18 216/112 96 03/30/23 13:06 92 18 216/112 97 03/30/23 13:00 92 213/107 97 03/30/23 12:00 85 11 L 226/116 03/30/23 11:45 92 22 175/116 96 03/30/23 11:40 82 21 234/163 03/30/23 11:34 107 H 21 224/140 03/30/23 10:07 97.7 F 82 16 212/111 98 Intake and Output 03/30/23 03/30/23 03/30/23 06:59 14:59 22:59 Other: Weight 83 kg GENERAL: The patient is lying in bed and does not appear in acute distress. NEUROLOGICAL: Limited because of his condition/cooperation. Higher mental function: The patient is awake but mumbled a few times which it was not understandable. He is not following commands. Language is very limited and I stated earlier he was mumbling few times which was not understandable.. Cranial nerves: The pupils are round, equal and reactive to light. Visual field s is unable to be assessed. Extraocular movement was tracking me throughout the room. No facial weakness is noted that. Motor: The strength is limited assessing individual muscle strength by spontan eously lifted up bilateral upper extremity on his own. Both lower extremities he the withdrew to pain bilaterally and is seems symmetrical. Normal tone and bulk. Cerebellum: Unable to assess. Sensation: Unable to assess light touch. He withdrew to painful some light in the lower extremity. Reflexes (right/left): Unable to assess because of his cooperation. Plantars are mute bilaterally. Results - Laboratory Findings CBC and BMP: 03/30/23 10:45 03/30/23 10:45 Abnormal Lab Findings: Abnormal Labs 03/30/23 10:45 Glucose 184 H Assessment and Plan Assessment: This is an 82-year-old gentleman with uncontrolled hypertension and per his blood pressure runs in the 200s for years and he refuses to check his blood pressure, history of TIAs, bilateral carotid endarterectomy who presented that because of confusion and it seems that he is having speech difficulty. In our facility his blood pressure is systolic in the 230s and diastolic is a high as 160. Severe expressive aphasia: Either due to hypertensive emergency. Rule out acute ischemic stroke. Hypertensive emergency blood pressure as high as 230s and diastolic is high as 160s Left sural carotid artery stenosis on the carotid duplex but there is limitation. History of TIAs and presents with expressive aphasia in the past in blood pressure as well as elevated History of bilateral carotid neurectomy 2 surgeries on the right 2005/2006 and one surgery on the left and 2005. History of coronary artery disease status post stent Underlying history of hypertension and it's uncontrolled at home. History of vascular dementia History of alcohol use and he has stopped close to a year ago History of B12 deficiency Plan: I ordered MRI of the brain, CT angiography of the head and neck. I consulted vascular surgery for the left ICA stenosis. I also ordered a routine EEG to rule out any underlying seizure discharges. 2-D echo, lipid panel is ordered Patient was started on aspirin 325 mg daily by the ED team. At home he was on aspirin 81 mg. Patient was to hold off on the Plavix in addition to the aspirin until further images for now. I started the patient on Lipitor 40 mg daily at bedtime for secondary stroke prophylaxis I ordered ammonia level, vitamin B12, folate Continue neuro checks Cardiac monitoring Please avoid the systolic blood pressure more than 200 and diastolic motor 100. And gradually controlled the blood pressure. We'll defer the management to the primary team. We'll defer the rest of the medical management to primary team For DVT prophylaxis I start the patient on subcu heparin 5000 units every 12 hours The plan was discussed with the patient and that his nurse. Thank you for the consultation Time with Patient: Greater than 30
[2023-03-30] MEDS: METOPROLOL TARTRATE 12.5 MG TAB PO SCH ×2 (17:13→20:02)
[2023-03-30] MEDS ORDERED: LORazepam 2 MG/ML INJ IV STA (18:14)
--- NOTE | 2023-03-30 18:49 | CT ---
EXAMINATION TYPE: CT angio head neck CT DLP: 536.7 mGycm, Automated exposure control for dose reduction was used. DATE OF EXAM: 03/30/2023 6:19 PM COMPARISON: 05/27/2022. CLINICAL INDICATION:Male, 82 years old with history of stroke.; [facility], here for neuro deficits. Brain w as done earlier in the day. This patient was highly confused and could not follow commands to remain still. EARLY CHILDHOOD LEAD TEACHER was not able to provide meds LIEN to calm down patient because he was inpatient status. Best attempt used to secure patient arms and head in head of operation and logistics. Pt appeared still and not moving wh en contrast injection initiated. Mid injection, patient started to move intensely. Best possible imag es. Dr. Zeke Chen was contacted regarding the exam and he said to put exam through to see what could be interpreted and to not repeat. TECHNIQUE: Axially acquired helical CT angiogram of the head and neck was obtained with contrast. Axi al images are supplemented with 3D reconstructions [facility] criteria used. Contrast used:65 mL of Isovue 370 with IV Contrast, Oral contrast used: None. FINDINGS: Extremely limited exam secondary motion. There is atherosclerotic disease at the carotid bi furcations. The remainder of the internal carotid arteries are poorly visualized. Common carotid stefania rosaura are patent. The vertebral arteries appear patent. Intracranial vasculature including the MCA, FOOD SAFETY COORDINATOR and CHATO vessels appear grossly intact. No gross evide nce for fracture. Lung apices are grossly clear. Atherosclerosis of the aortic arch. IMPRESSION: Extremely limited exam, there is atherosclerosis at the carotid bifurcations which is poorly visualiz ed due to patient motion. The visualized intracranial vasculature appears grossly patent patent.
[2023-03-30] MEDS: HEPARIN SODIUM,PORCINE/PF 5,000 UNIT/0.5 ML SYRINGE SQ SCH (21:02)
[2023-03-30] MEDS: FAMOTIDINE 20 MG/2 ML VIAL IV SCH (21:02)
[2023-03-30] MEDS: ATORVASTATIN 40 MG TAB PO SCH (21:02)
[2023-03-31] MEDS ORDERED: hydrALAZINE HCL 20 MG/ML 1 ML VIAL IVP PRN (00:35)
[2023-03-31] MEDS ORDERED: METOPROLOL TARTRATE 25 MG TAB PO SCH (00:45)
--- NOTE | 2023-03-31 02:02 | P.HPIM ---
History of Present Illness This is a pleasant 82 years old male with past medical history of hypertension, hyperlipidemia, GERD Presents because of speech difficulty Patient however, he doesn't know or remember much of the information. Patient is poor historian. Information is obtained from medical records and staff. No family at bedside Patient was doing well at baseline yesterday. Today his more confused. Blood pressure was significantly elevated to 34/163, currently 216/112 Patient has unremarkable CBC, INR, BMP, liver enzymes. Troponin is negative less than 0.012. CT of the brain: No acute anterior cranial process. 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 History of Any Multi-Drug Resistant Organisms: None Reported Past Surgical History: Heart Catheterization With Stent Date of Last Stent Placement:: 2007 Past Psychological History: No Psychological Hx Reported Smoking Status: Never smoker Past Alcohol Use History: Daily Past Drug Use History: None Reported Medications and Allergies Home Medications Medication Instructions Recorded Confirmed Type Aspirin EC [Ecotrin Low Dose] 81 mg PO DAILY 05/27/22 03/30/23 History Fish Oil/Dha/Epa [Fish Oil 1,200 1 cap PO DAILY 05/27/22 03/30/23 History mg Fish Oil] Omeprazole 20 mg PO DAILY PRN 05/27/22 03/30/23 History amLODIPine [Norvasc] 5 mg PO DAILY 03/30/23 03/30/23 History Allergies Allergy/AdvReac Type Severity Reaction Status Date / Time No Known Allergies Allergy Verified 03/30/23 11:25 Physical Exam Vitals: Vital Signs Temp Pulse Resp BP Pulse Ox 03/30/23 13:07 93 18 216/112 96 03/30/23 13:00 92 213/107 97 03/30/23 12:00 85 11 L 226/116 03/30/23 11:45 92 22 175/116 96 03/30/23 11:40 82 21 234/163 03/30/23 11:34 107 H 21 224/140 08/02/23 10:07 97.7 F 82 16 212/111 98 Intake and Output 03/29/23 03/30/23 03/30/23 22:59 06:59 14:59 Other: Weight 83 kg -GENERAL: The patient is awake, opens eyes spontaneously. He continued to need. He does not follow commands, has no insight into surrounded or illness, not in any acute distress. Well developed, well nourished. HEENT: Pupils are round and equally reacting to light. EOMI. No scleral icterus. No conjunctival pallor. Normocephalic, atraumatic. No pharyngeal erythema. No thyromegaly. CARDIOVASCULAR: S1 and S2 present. No murmurs, rubs, or gallops. PULMONARY: Chest is clear to auscultation, no wheezing , no crackles. ABDOMEN: Soft, nontender, nondistended, normoactive bowel sounds. No palpable organomegaly. MUSCULOSKELETAL: No joint swelling or deformity. EXTREMITIES: No cyanosis, clubbing, or pedal edema. -NEUROLOGICAL: Examination is limited by -patient medical condition. Patient moves extremities equally. Cranial nerves are grossly intact with limited examination. SKIN: No rashes. no petechiae. 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 IV hydrocele when necessary Cardiology consult FOLLOW-UP ECHOCARDIOGRAM cAROTID DUPLEX Labs and medication were reviewed.. Continue same treatment. Continue with symptomatic treatment. Resume home medication. Monitor labs and vitals. DVT and GI prophylaxis. Further recommendations as per clinical course of the patient DVT prophylaxis: Subcutaneous heparin GI Prophylaxis: Pepcid PT/OT: PendingSpeech therapy: Pending Prognosis is guarded
[2023-03-31 08:07] VITALS: TEMP 97.8
--- NOTE | 2023-03-31 08:32 | P.CRDCN ---
History of Present Illness Consult date: 03/31/23 Reason for Consult (text): Eval for Mobitz 2 History of present illness: History of present illness: This is an 82-year-old male patient of Dr. Black with past medical history of hypertension, dyslipidemia, peripheral vascular disease, dementia. which is the ALLERGY. Patient denies having chest pain, no palpitations, no lightheadedness or dizziness. We have been asked to evaluate the patient for possible Mobitz type II. According to patient's nurse, he had heart rates in the 30s while he was sleeping. Patient was ordered for a Lopressor 25 mg twice daily but this was not given by the night nurse due to bradycardia. The patient does have history of alcohol abuse currently drinking 1-2 beers per week. EKGSecond-degree heart block Chest x-ray:No acute process. CAT scan of the brain no acute hemorrhage or ischemia CBC is unremarkable. INR 1. A lateralized renal function normal with a creatinine of 1.04. Blood sugar 184. Liver function tests are normal. Troponin negative 1. Urine drug screen was negative. Home cardiac medications:Amlodipine 5 mg daily, aspirin 81 mg daily, fish oil 1 daily Echocardiogram 04/2022 revealed normal EF, tedious, mild MR. PCI history mid RCA 1996, JENNIFER in 1986, mid LAD 2007 Lexiscan 03/2020 normal EF, normal study Review Of Systems: At the time of my evaluation: Constitutional: No fever, no chills. No weakness, fatigue or lethargy. EENT: No headache. No dizziness. Lungs: No shortness of breath, cough, no sputum production. No wheezing. Cardiovascular: No chest pain, no lower extremity edema. No palpitations. No paroxysmal nocturnal dyspnea. No orthopnea. No lightheadedness or dizziness. No syncopal episodes. Abdominal: No abdominal pain. No nausea, vomiting. No diarrhea. No constipation. No bloody or tarry stools. Genitourinary: No dysuria.. No urinary retention. Musculoskeletal: No myalgias. No muscle weakness, no frequent falls. No back pain. No neck pain. Integumentary: No wounds. No rash. No unusual bruising. Neurologic: No aphasia. No facial droop. No change in mentation. Patient presented with a seizure improved.. Physical examination: Gen: This is an 82-year-old male resting in bed appears comfortable and in no acute distress VS: reviewed HEENT: Head is atraumatic, normocephalic. Pupils equal, round. Sclerae is anicteric. NECK: Supple. No JVD. LUNGS: Clear to auscultation. No wheezes or rhonchi. No intercostal retractions. HEART: Regular rate and rhythm. 2/6 SE murmur. ABDOMEN: Soft No tenderness. EXTREMITIES: No pedal edema. No calf tenderness. NEUROLOGICAL: Patient is awake, alert and oriented to person. Assessment: Second-degree heart block asymptomatic Hypertension uncontrolled Dyslipidemia Peripheral vascular disease Plan: Avoid beta blockers and calcium channel blockers, discontinue metoprolol Increase Norvasc to 10 mg daily Continue telemetry monitoring If patient develops symptomatic bradycardia, patient will require pacemaker implantation. Obtain 2-D echocardiogram and Doppler study to assess cardiac structure and function Further recommendations to follow based upon clinical course Thank you kindly for this consultation. Nurse practitioner note has been reviewed, I agree with documented findings and plan of care. Patient was seen and examined. 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 History of Any Multi-Drug Resistant Organisms: None Reported Past Surgical History: Heart Catheterization With Stent Date of Last Stent Placement:: 2007 Past Psychological History: No Psychological Hx Reported Smoking Status: Never smoker Past Alcohol Use History: Daily Past Drug Use History: None Reported Medications and Allergies Home Medications Medication Instructions Recorded Confirmed Type Aspirin EC [Ecotrin Low Dose] 81 mg PO DAILY 05/27/22 03/30/23 History Fish Oil/Dha/Epa [Fish Oil 1,200 1 cap PO DAILY 05/27/22 03/30/23 History mg Fish Oil] Omeprazole 20 mg PO DAILY PRN 05/27/22 03/30/23 History amLODIPine [Norvasc] 5 mg PO DAILY 03/30/23 03/30/23 History Allergies Allergy/AdvReac Type Severity Reaction Status Date / Time No Known Allergies Allergy Verified 03/30/23 11:25 Physical Exam Vitals: Vital Signs Temp Pulse Pulse Resp BP BP Pulse Ox 03/31/23 04:00 49 L 18 160/73 97 03/30/23 23:48 77 18 209/80 96 03/30/23 20:30 98.9 F 91 18 214/93 97 03/30/23 20:01 98 18 201/105 100 03/30/23 18:47 75 16 202/104 95 03/30/23 18:06 100 18 194/94 97 03/30/23 17:16 60 20 180/117 96 03/30/23 16:27 86 16 190/113 95 03/30/23 16:06 88 18 212/107 97 03/30/23 15:07 220/122 03/30/23 15:06 99 20 220/122 97 03/30/23 13:07 93 18 216/112 96 03/30/23 13:06 92 18 216/112 97 03/30/23 13:00 92 213/107 97 03/30/23 12:00 85 11 L 226/116 03/30/23 11:45 92 22 175/116 96 03/30/23 11:40 82 21 234/163 03/30/23 11:34 107 H 21 224/140 03/30/23 10:07 97.7 F 82 16 212/111 98 Intake and Output 03/30/23 03/31/23 03/31/23 22:59 06:59 14:59 Intake Total 540 540 Balance 540 540 Intake: Oral 540 540 Other: Voiding Method Diaper Diaper External Catheter External Catheter # Voids 1 Results 03/30/23 10:45 03/30/23 10:45 Cardiac Enzymes 03/30/23 03/30/23 Range/Units 10:45 10:45 AST 19 (17-59) U/L Troponin I <0.012 (0.000-0.034) ng/mL Coagulation 03/30/23 Range/Units 10:45 PT 11.0 (9.0-12.0) sec APTT 22.3 (22.0-30.0) sec CBC 03/30/23 Range/Units 10:45 WBC 10.0 (3.8-10.6) k/uL RBC 5.30 (4.30-5.90) m/uL Hgb 16.9 (13.0-17.5) gm/dL Hct 49.4 (39.0-53.0) % Plt Count 198 (150-450) k/uL Comprehensive Metabolic Panel 03/30/23 Range/Units 10:45 Sodium 140 (137-145) mmol/L Potassium 3.7 (3.5-5.1) mmol/L Chloride 102 (98-107) mmol/L Carbon Dioxide 25 (22-30) mmol/L BUN 10 (9-20) mg/dL Creatinine 1.04 (0.66-1.25) mg/dL Glucose 184 H (74-99) mg/dL Calcium 9.0 (8.4-10.2) mg/dL AST 19 (17-59) U/L ALT 12 (4-49) U/L Alkaline Phosphatase 102 (38-126) U/L Total Protein 7.6 (6.3-8.2) g/dL Albumin 4.3 (3.5-5.0) g/dL Current Medications Generic Name Dose Route Start Last Admin Trade Name Freq PRN Reason Stop Dose Admin Amlodipine Besylate 5 mg 03/31/23 09:00 Amlodipine 5 Mg Tab PO DAILY MAGI Aspirin 325 mg 03/31/23 09:00 Aspirin 325 Mg Tab PO DAILY MAGI Atorvastatin Calcium 40 mg 03/30/23 21:00 03/30/23 21:02 Atorvastatin 40 Mg Tab PO 40 mg HS MAGI Administration Famotidine 20 mg 03/30/23 21:00 03/30/23 21:02 Famotidine 20 Mg/2 Ml Vial IV 20 mg Q12HR MAGI Administration Heparin Sodium (Porcine) 5,000 unit 03/30/23 21:00 03/30/23 21:02 Heparin Sodium,Porcine/Pf 5,000 Unit/0.5 Ml Syringe SQ 5,000 unit Q12HR MAGI Administration Hydralazine HCl 5 mg 03/31/23 00:35 Hydralazine Hcl 20 Mg/Ml 1 Ml Vial IVP Q2HR PRN Blood Pressure - High Metoprolol Tartrate 25 mg 03/31/23 00:45 03/31/23 02:01 Metoprolol Tartrate 25 Mg Tab PO Not Given BID MAGI Pantoprazole Sodium 40 mg 03/30/23 15:43 Pantoprazole 40 Mg Tablet PO DAILY PRN acid reflux Sodium Chloride 10 ml 03/30/23 21:00 03/30/23 21:03 Sodium Chloride 0.9% Flush 10 Ml Syringe IV Not Given BID MAGI Intake and Output 03/30/23 03/31/23 03/31/23 22:59 06:59 14:59 Intake Total 540 540 Balance 540 540 Intake: Oral 540 540 Other: Voiding Method Diaper Diaper External Catheter External Catheter # Voids 1 03/30/23 10:45 03/30/23 10:45
[2023-03-31 08:57] LABS: African American GFR (CKD) 70 (>60 ml/min/1.73 sqM); Anion Gap 9 mmol/L; Blood Urea Nitrogen 15 mg/dL (9-20); Calcium 9.5 mg/dL (8.4-10.2); Carbon Dioxide 27 mmol/L (22-30); Chloride 102 mmol/L (98-107); Glucose 108 mg/dL (74-99); Non-African American GFR(CKD) 61 (>60 ml/min/1.73 sqM); Potassium 3.7 mmol/L (3.5-5.1); Sodium 138 mmol/L (137-145)
[2023-03-31] MEDS ORDERED: NON FORMULARY DRUG (Fish Oil/Dha/Epa [Fish Oil 1,200 Mg Fish Oil] 1 EACH Capsule) PO SCH (09:00)
[2023-03-31] MEDS ORDERED: amLODIPine 5 MG TAB PO SCH (09:00)
[2023-03-31] MEDS: HEPARIN SODIUM,PORCINE/PF 5,000 UNIT/0.5 ML SYRINGE SQ SCH (09:22)
[2023-03-31] MEDS: FAMOTIDINE 20 MG/2 ML VIAL IV SCH ×2 (09:22→22:04)
[2023-03-31] MEDS: lisinopriL 20 MG TAB PO SCH (09:22)
[2023-03-31] MEDS: amLODIPine 10 MG TAB PO SCH (09:22)
[2023-03-31] MEDS: ASPIRIN 325 MG TAB PO SCH (09:22)
--- NOTE | 2023-03-31 12:33 | P.GSCN ---
History of Present Illness Consult date: 03/31/23 Reason for Consult: Carotid stenosis Requesting physician: Zeke Chen History of present illness: This is an 82-year-old male that was brought into the emergency department for altered mental status changes yesterday. Patient's is at the bedside. Apparently patient was confused yesterday and not very responsive. Patient was unable to provide history yesterday. states that he has 100% better today. He is sitting up, is awake, alert and oriented. He has a past medical history including multiple TIAs, bilateral carotid endarterectomies, possible underlying dementia, coronary artery disease and uncontrolled hypertension. Patient was very hypertensive on admission with systolic blood pressure running over 200s. He had a brain CT on admission with no acute intraparenchymal hemorrhage or CT evidence for acute ischemia. He had further workup with carotid duplex and CT angiogram head and neck which were poor studies due to patient's movement. Vascular surgery was consulted for carotid stenosis. Patient currently denies any confusion, he still is somewhat of a poor historian, denies any focal deficits, no shortness of breath, chest pain, abdominal pain, nausea or vomiting. Review of Systems A 14 point review systems was completed all pertinent positives and negatives as stated in the HPI. 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 History of Any Multi-Drug Resistant Organisms: None Reported Past Surgical History: Heart Catheterization With Stent Date of Last Stent Placement:: 2007 Past Psychological History: No Psychological Hx Reported Smoking Status: Never smoker Past Alcohol Use History: Daily Past Drug Use History: None Reported Medications and Allergies Home Medications Medication Instructions Recorded Confirmed Type Aspirin EC [Ecotrin Low Dose] 81 mg PO DAILY 05/27/22 03/30/23 History Fish Oil/Dha/Epa [Fish Oil 1,200 1 cap PO DAILY 05/27/22 03/30/23 History mg Fish Oil] Omeprazole 20 mg PO DAILY PRN 05/27/22 03/30/23 History amLODIPine [Norvasc] 5 mg PO DAILY 03/30/23 03/30/23 History Allergies Allergy/AdvReac Type Severity Reaction Status Date / Time No Known Allergies Allergy Verified 03/30/23 11:25 Surgical - Exam Vital Signs Temp Pulse Resp BP Pulse Ox 97.7 F 82 16 212/111 98 03/30/23 10:07 03/30/23 10:07 03/30/23 10:07 03/30/23 10:07 03/30/23 10:07 General appearance: The patient is alert, oriented, appears in no acute distress. HET: Head is normocephalic and atraumatic. Pupils are equal and reactive. Neck: Supple. Heart: Regular. Lungs: Equal expansion, normal respiratory effort. Abdomen: Soft, nontender, nondistended. Extremities: Normal skin color and turgor. Neurological: No focal deficits. Strength and sensation are grossly intact. Results - Labs 03/30/23 10:45 03/31/23 07:42 Abnormal Lab Results - Last 24 Hours (Table) 03/30/23 03/31/23 Range/Units 10:45 07:42 Glucose 184 H 108 H (74-99) mg/dL Diabetes panel 03/30/23 03/31/23 Range/Units 10:45 07:42 Sodium 140 138 (137-145) mmol/L Potassium 3.7 3.7 (3.5-5.1) mmol/L Chloride 102 102 (98-107) mmol/L Carbon Dioxide 25 27 (22-30) mmol/L BUN 10 15 (9-20) mg/dL Creatinine 1.04 1.12 (0.66-1.25) mg/dL Glucose 184 H 108 H (74-99) mg/dL Calcium 9.0 9.5 (8.4-10.2) mg/dL AST 19 (17-59) U/L ALT 12 (4-49) U/L Alkaline Phosphatase 102 (38-126) U/L Total Protein 7.6 (6.3-8.2) g/dL Albumin 4.3 (3.5-5.0) g/dL Calcium panel 03/30/23 03/31/23 Range/Units 10:45 07:42 Calcium 9.0 9.5 (8.4-10.2) mg/dL Albumin 4.3 (3.5-5.0) g/dL Pituitary panel 03/30/23 03/31/23 Range/Units 10:45 07:42 Sodium 140 138 (137-145) mmol/L Potassium 3.7 3.7 (3.5-5.1) mmol/L Chloride 102 102 (98-107) mmol/L Carbon Dioxide 25 27 (22-30) mmol/L BUN 10 15 (9-20) mg/dL Creatinine 1.04 1.12 (0.66-1.25) mg/dL Glucose 184 H 108 H (74-99) mg/dL Calcium 9.0 9.5 (8.4-10.2) mg/dL Adrenal panel 03/30/23 03/31/23 Range/Units 10:45 07:42 Sodium 140 138 (137-145) mmol/L Potassium 3.7 3.7 (3.5-5.1) mmol/L Chloride 102 102 (98-107) mmol/L Carbon Dioxide 25 27 (22-30) mmol/L BUN 10 15 (9-20) mg/dL Creatinine 1.04 1.12 (0.66-1.25) mg/dL Glucose 184 H 108 H (74-99) mg/dL Calcium 9.0 9.5 (8.4-10.2) mg/dL Total Bilirubin 0.8 (0.2-1.3) mg/dL AST 19 (17-59) U/L ALT 12 (4-49) U/L Alkaline Phosphatase 102 (38-126) U/L Total Protein 7.6 (6.3-8.2) g/dL Albumin 4.3 (3.5-5.0) g/dL Assessment and Plan Assessment: 1. Altered mental status changes 2. Carotid stenosis of left greater than right per carotid duplex 3. Previous history TIAs status post carotid endarterectomy 4. Coronary artery disease Plan: Carotid duplex and CT angiogram head and neck imaging independently reviewed by Dr. Piper. Bubble studies are poor studies due to patient moving and motion artifact. However does not appear to have any significant hemodynamic stenosis. Continue with workup with MRI and further recommendations from neurology. No indication for any vascular surgical intervention at this time. Continue medical therapy. Patient can follow-up as needed with any vascular surgery. Thank you for this consultation. The impression and plan of care has been dictated as directed. Dr. Piper I performed a history and examination of this patient, discussed the same with the dictator. I agree with the dictator's note ,documented as a scribe. Any additional findings or plans will be noted.
--- NOTE | 2023-03-31 13:45 | P.PN ---
Subjective Progress Note Date: 03/31/23 82 years old male with past medical history of hypertension, hyperlipidemia, GERD Presents because of speech difficulty Workup initiated for CVA, noted to have bradycardia seen by cardiology 03/31 : Patient evaluated bedside, care plan discussed, patient is eager to go home. REVIEW OF SYSTEMS: CONSTITUTIONAL: No fever, no malaise, no fatigue. HEENT: No recent visual problems or hearing problems. Denied any sore throat. CARDIOVASCULAR: No chest pain, orthopnea, PND, no palpitations, no syncope. PULMONARY: No shortness of breath, no cough, no hemoptysis. GASTROINTESTINAL: No diarrhea, no nausea, no vomiting, no abdominal pain. NEUROLOGICAL: No headaches, no weakness, no numbness. HEMATOLOGICAL: Denies any bleeding or petechiae. GENITOURINARY: Denies any burning micturition, frequency, or urgency. MUSCULOSKELETAL/RHEUMATOLOGICAL: Denies any joint pain, swelling, or any muscle pain. ENDOCRINE: Denies any polyuria or polydipsia. Objective - Vital Signs Vital signs: Vital Signs Temp 97.8 F 03/31/23 11:38 Pulse 80 03/31/23 11:38 Resp 17 03/31/23 11:38 BP 148/80 03/31/23 11:38 Pulse Ox 99 03/31/23 11:38 FiO2 Intake & Output 03/30/23 03/31/23 03/31/23 18:59 06:59 18:59 Intake Total 540 1080 Balance 540 1080 Weight 83 kg Intake: Oral 540 1080 Other: Voiding Method Diaper External Catheter # Voids 1 1 - Exam PHYSICAL EXAMINATION: GENERAL: The patient is alert and oriented x3, not in any acute distress. Well developed, well nourished. HEENT: Pupils are round and equally reacting to light. EOMI. No scleral icterus. No conjunctival pallor. Normocephalic, atraumatic. No pharyngeal erythema. No thyromegaly. CARDIOVASCULAR: S1 and S2 present. No murmurs, rubs, or gallops. PULMONARY: Chest is clear to auscultation, no wheezing or crackles. ABDOMEN: Soft, nontender, nondistended, normoactive bowel sounds. No palpable organomegaly. MUSCULOSKELETAL: No joint swelling or deformity. EXTREMITIES: No cyanosis, clubbing, or pedal edema. NEUROLOGICAL: Gross neurological examination did not reveal any focal deficits. SKIN: No rashes. 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
--- NOTE | 2023-03-31 14:51 | EEG ---
ELECTROENCEPHALOGRAM REPORT CLINICAL HISTORY: This is an 82-year-old gentleman with altered mental status. The video EEG is obtained to evaluate for seizure epileptiform activity. RELEVANT MEDICATION: Ativan. EEG TYPE: A routine 21-channel EEG is performed with video using the 10/20 electrode placement system. DESCRIPTION: Wakefulness is only obtained. During awake state, the posterior-dominant rhythm consists of low to moderate voltage of 7 to 7.5 hertz activity that is well modulated, well sustained. There is no physiological stage 2 sleep architecture. There is no focal slowing. Interictal and ictal is none. ACTIVATION PROCEDURE: Photic stimulation and hyperventilation are not performed. CLINICAL INTERPRETATION: This is an abnormal routine EEG. The background slowing is suggestive of mild encephalopathy. There is no focal slowing, epileptiform discharge or seizure on the EEG. Clinical correlation is recommended. JANEY / ANNABELLA: [id number] / [id number]
[2023-03-31 15:32] VITALS: RESP 16
--- NOTE | 2023-03-31 16:29 | P.PN ---
Subjective Progress Note Date: 03/31/23 I am following-up with patient and he feels drastically better. He denies of headache, nausea, vomiting or any focal weakness. Objective - Vital Signs Vital signs: Vital Signs Temp 97.8 F 03/31/23 11:38 Pulse 80 03/31/23 11:38 Resp 17 03/31/23 11:38 BP 148/80 03/31/23 11:38 Pulse Ox 99 03/31/23 11:38 FiO2 Intake & Output 03/30/23 03/31/23 03/31/23 18:59 06:59 18:59 Intake Total 540 1080 180 Balance 540 1080 180 Weight 83 kg Intake: Oral 540 1080 180 Other: Voiding Method Diaper External Catheter # Voids 1 1 - Exam GENERAL: The patient is sitting in a recliner chair and is not in acute distress. NEUROLOGICAL: Patient is awake alert oriented to self. With office he stated he is in the hospital but stated he was in [facility]. He stated the month is November and could not tell me the year. He is able to name watch and glasses. He is able to follow simple commands. Language appear normal. No neglect. The pupils are round equal reactive to light. Visual mendes are full to confrontation. After oculomotor is intact no nystagmus is appreciated no facial weakness. No dysarthria. Motor is a strength 5 out of 5 throughout Sensation is unable to determine if there is any deficit because his cooperation Cerebellar is normal finger to nose over bilateral uppers. Some other workup during his hospital visit consisted of: Patient blood pressure in our facility is in the 200s as high as 234/163. CBC with differential is unremarkable next line Chemistry panel: Glucose is 184 otherwise rest is on normal Urine drug screen is not detected CT the head is reported as no acute intraparenchymal hemorrhage or CT evidence for acute ischemia. Stable dilation of both lateral ventricle which may be due to cerebral atrophy versus normal pressure hydrocephalus. I personally reviewed the CT head and I agree there is no acute or subacute ischemia and there is no evidence for bleed. I feel the patient has generalized atrophy and aspect the his dilation of ventricle is more due to his a appropriate age atrophy. Carotid duplex is reported as extremely limited examination due to the patient the mental condition. Moderate atherosclerotic plaque with both carotid bulb. No hemodynamically significant stenosis of the right internal carotid artery. Approximately 56 9% stenosis of the origin of left internal carotid artery secondary due to calcified plaque. Consider further evaluation with CTA and neck due to limitation. Non visualization of the bilateral vertebral artery. CT angiography of the head and neck is reported as extremely limited exam. There is atherosclerotic at the carotid bifurcation which is poorly visualized due to patient motion. The visualized intracranial vasculature appears grossly patent. - Labs CBC & Chem 7: 03/30/23 10:45 03/31/23 07:42 Labs: Abnormal Lab Results - Last 24 Hours (Table) 03/31/23 Range/Units 07:42 Glucose 108 H (74-99) mg/dL Assessment and Plan Assessment: This is an 82-year-old gentleman with uncontrolled hypertension and per his blood pressure runs in the 200s for years and he refuses to check his blood pressure, history of TIAs, bilateral carotid endarterectomy who presented that because of confusion and it seems that he is having speech difficulty. In our facility his blood pressure is systolic in the 230s and diastolic is a high as 160. Severe expressive aphasia: Either due to hypertensive emergency. Rule out acute ischemic stroke--mentation and speech improved and I feel more due to hypertensive emergency. Hypertensive encephalopathy--improved Hypertensive emergency blood pressure as high as 230s and diastolic is high as 160s Left internal carotid artery stenosis on the carotid duplex but there is limitation. Very limited on CTA. History of TIAs and presents with expressive aphasia in the past in blood pressure as well as elevated History of bilateral carotid neurectomy 2 surgeries on the right 2005/2006 and one surgery on the left and 2005. History of coronary artery disease status post stent Underlying history of hypertension and it's uncontrolled at home. History of vascular dementia History of alcohol use and he has stopped close to a year ago History of B12 deficiency Plan: Pending MRI of the brain. I consulted vascular surgery for the left ICA stenosis. THe CTA is very limited because of motion. Vascular recommend to follow-up as outpatient and no indication for intervention at this time. Routine EEG: Mild encephalopathy. No seizure or discharges. 2-D echo pending. I ordered vitamin B12, folate, ammonia and hemoglobin A1c. Patient was started on aspirin 325 mg daily by the ED team. At home he was on aspirin 81 mg. Patient was to hold off on the Plavix in addition to the aspirin until further images for now. I started the patient on Lipitor 40 mg daily at bedtime for secondary stroke prophylaxis Continue neuro checks Cardiac monitoring Please avoid the systolic blood pressure more than 200 and diastolic motor 100. And gradually controlled the blood pressure. We'll defer the management to the primary team. We'll defer the rest of the medical management to primary team For DVT prophylaxis On subcu heparin 5000 units every 12 hours The plan is discussed with patient and his nurse. Time with Patient: Less than 30
[2023-03-31 17:10] LABS: Chol/HDL Ratio 5.55 Ratio; LDL Cholesterol,Calculated 189.4 mg/dL (0.0-131.0)
--- NOTE | 2023-03-31 18:02 | CA ---
Transthoracic Echo Report Name: Og Mckeon Age: 82 Gender: M : 1940 Exam Date: 03/31/2023 08:43 Exam Location: [place] [facility] Ht (in): 69 Wt (lb): 182 Ordering Physician: Bala Serna DO Attending/Referring Phys: Acrobatic Rigger Celina Killian RDCS Procedure CPT: Indications: Thrombus Cardiac Hx: Technical Quality: Fair Contrast 1: Total Dose (mL): Contrast 2: Total Dose (mL): MEASUREMENTS (Male / Female) Normal Values 2D ECHO LV Diastolic Diameter PLAX 4.9 cm 4.2 - 5.9 / 3.9 - 5.3 cm LV Systolic Diameter PLAX 3.6 cm IVS Diastolic Thickness 1.4 cm 0.6 - 1.0 / 0.6 - 0.9 cm LVPW Diastolic Thickness 1.5 cm 0.6 - 1.0 / 0.6 - 0.9 cm LV Relative Wall Thickness 0.6 RV Internal Dim ED PLAX 2.9 cm LVOT Diameter 2.3 cm LA Systolic Diameter LX 3.9 cm 3.0 - 4.0 / 2.7 - 3.8 cm LV Diastolic Volume MOD BP 72.8 cm??? 67 - 155 / 56 - 104 cm??? LV Systolic Volume MOD BP 35.3 cm??? 22 - 58 / 19 - 49 cm??? LV Ejection Fraction MOD BP 51.5 % >= 55 % LV Cardiac Index MOD BP 1243.1 cm???/min???m??? LV Diastolic Volume MOD 4C 81.4 cm??? LV Systolic Volume MOD 4C 42.4 cm??? LV Ejection Fraction MOD 4C 47.9 % LV Cardiac Index MOD 4C 1295.0 cm???/min???m??? LV Diastolic Length 4C 6.5 cm LV Systolic Length 4C 6.0 cm LV Diastolic Volume MOD 2C 61.4 cm??? LV Systolic Volume MOD 2C 26.1 cm??? LV Ejection Fraction MOD 2C 57.5 % LV Cardiac Index MOD 2C 1171.0 cm???/min???m??? LV Diastolic Length 2C 6.9 cm LV Systolic Length 2C 5.2 cm LA Volume 53.0 cm??? 18 - 58 / 22 - 52 cm??? M-MODE Aortic Root Diameter MM 3.6 cm MV E Point Septal Separation 0.6 cm AV Cusp Separation MM 2.1 cm DOPPLER AV Peak Velocity 115.4 cm/s AV Peak Gradient 5.3 mmHg MV Area PHT 1.9 cm??? Mitral E Point Velocity 41.6 cm/s Mitral A Point Velocity 64.4 cm/s Mitral E to A Ratio 0.6 MV Deceleration Time 397.5 ms MV E' Velocity 5.6 cm/s Mitral E to MV E' Ratio 7.5 TR Peak Velocity 247.2 cm/s TR Peak Gradient 24.4 mmHg Right Ventricular Systolic Press 29.2 mmHg FINDINGS Left Ventricle Left ventricular ejection fraction is estimated at 45-50 %. Left ventricular cavity size normal. Moderately increased left ventricular wall thickness. Inferior wall hypokinesis Right Ventricle Normal right ventricular size. Right ventricular systolic pressure within normal limits. Right Atrium Normal right atrial size. Left Atrium Normal left atrial size. Mitral Valve Mitral valve thickened. Mild mitral annular calcification. Trace mitral regurgitation. Aortic Valve Aortic valve sclerosis. No aortic valve stenosis or regurgitation. Tricuspid Valve Structurally normal tricuspid valve. Mild tricuspid regurgitation. Pulmonic Valve Pulmonic valve not well visualized. . No pulmonic regurgitation. Pericardium Normal pericardium. No pericardial effusion. Aorta Normal size aortic root and proximal ascending aorta. CONCLUSIONS Technically difficult study. 1. Mildly impaired left ventricle systolic function with inferior wall hypokinesis 2. Mild tricuspid and trace mitral regurgitation Previewed by: Dr. Silas Black MD (Electronically Signed) Final Date: 31 March 2023 18:01
[2023-03-31] MEDS ORDERED: LORazepam 2 MG/ML INJ IV PRN (20:32)
[2023-03-31] MEDS: ATORVASTATIN 40 MG TAB PO SCH (22:04)
[2023-03-31] MEDS: HEPARIN SODIUM,PORCINE 5,000 UNIT/ML 1 ML VIAL SQ SCH (22:04)
[2023-04-01] MEDS: chlordiazePOXIDE 25 MG CAP PO SCH ×2 (03:59→10:29)
[2023-04-01] MEDS ORDERED: FOLIC ACID 1 MG TAB PO SCH (09:15)
[2023-04-01 09:29] VITALS: BP 132/67; PULSE 67
[2023-04-01] MEDS: FAMOTIDINE 20 MG/2 ML VIAL IV SCH (09:41)
[2023-04-01] MEDS: amLODIPine 10 MG TAB PO SCH (09:44)
[2023-04-01] MEDS: lisinopriL 20 MG TAB PO SCH (09:44)
[2023-04-01] MEDS: ASPIRIN 325 MG TAB PO SCH (09:44)
[2023-04-01] MEDS ORDERED: FAMOTIDINE 20 MG TAB PO SCH (09:45)
[2023-04-01] MEDS: HEPARIN SODIUM,PORCINE 5,000 UNIT/ML 1 ML VIAL SQ SCH (09:49)
--- NOTE | 2023-04-01 12:06 | P.DS ---
Providers Date of admission: 03/30/23 13:06 Expected date of discharge: 04/01/23 Attending physician: Lincoln Avina MD Consults: 03/30/23 13:05 Consult Physician Urgent Consulting Provider: Zeke Chen Consult Reason/Comments: Expressive aphasia, evaluate for CVA versus other Do you want consulting provider notified?: Yes Consult Physician Urgent Consulting Provider: Rene Goel Consult Reason/Comments: Evaluate for Mobitz 2 Do you want consulting provider notified?: Yes Primary care physician: Physician Nonstaff Hospital Course: 82 years old male with past medical history of hypertension, hyperlipidemia, GERD Presents because of speech difficulty Patient however, he doesn't know or remember much of the information. Patient is poor historian. Information is obtained from medical records and staff. No family at bedside Patient was doing well at baseline yesterday. Today his more confused. Blood pressure was significantly elevated to 34/163, currently 216/112 Patient has unremarkable CBC, INR, BMP, liver enzymes. Troponin is negative less than 0.012. CT of the brain: No acute anterior cranial process. Stable dilatation of both lateral ventricle which may be due to cerebral atrophy versus normal pressure hydrocephalus Chest x-ray: No acute process EKG: Suspicious for Wenckebach heart block type II In the emergency room received amlodipine 5 mg, aspirin 325 mg 03/31 : Patient evaluated bedside, care plan discussed, patient is eager to go home. Patient seen by neurology, cardiology, vascular surgery during the hospital stay 04/01: MRI brain was ordered however could not be completed and patient eventually refused MRI. Blood pressure medications were adjusted and prescription provided prior to discharge. Patient was seen by cardiology for bradycardia however heart and improve and patient was asymptomatic. Patient discharged home on aspirin, Lipitor, lisinopril, amlodipine. I fed bedside obstructions provided to come to the emergency if recurrent strokelike symptoms PHYSICAL EXAMINATION: GENERAL: The patient is alert and oriented x3, not in any acute distress. Well developed, well nourished. HEENT: Pupils are round and equally reacting to light. EOMI. No scleral icterus. No conjunctival pallor. Normocephalic, atraumatic. No pharyngeal erythema. No thyromegaly. CARDIOVASCULAR: S1 and S2 present. No murmurs, rubs, or gallops. PULMONARY: Chest is clear to auscultation, no wheezing or crackles. ABDOMEN: Soft, nontender, nondistended, normoactive bowel sounds. No palpable organomegaly. MUSCULOSKELETAL: No joint swelling or deformity. EXTREMITIES: No cyanosis, clubbing, or pedal edema. NEUROLOGICAL: Gross neurological examination did not reveal any focal deficits. SKIN: No rashes. 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 Hyperlipidemia History of GERD Stable dilatation of both lateral ventricle which may be due to cerebral atrophy versus normal pressure hydrocephalus Plan: * Consultation obtained from neurology, vascular surgery * Continue amlodipine, lisinopril, aspirin, Lipitor * In regards to heart block seen by cardiology recommended conservative management at this point he become symptomatic patient will need a pacemaker * CT head CT angiogram head and neck completed reviewed by vascular surgery no intervention recommended * MRI brain patient refused, he does understand the risks that he might have had a stroke, echocardiogram completed no intracardiac thrombus noted Patient Condition at Discharge: Fair Plan - Discharge Summary Discharge Rx Participant: Yes New Discharge Prescriptions: New Atorvastatin [Lipitor] 40 mg PO HS #30 tab amLODIPine [Norvasc] 10 mg PO DAILY #30 tab lisinopriL [Zestril] 20 mg PO DAILY #30 tab Continue Omeprazole 20 mg PO DAILY PRN PRN Reason: acid reflux Aspirin EC [Ecotrin Low Dose] 81 mg PO DAILY Fish Oil/Dha/Epa [Fish Oil 1,200 mg Fish Oil] 1 cap PO DAILY Discontinued amLODIPine [Norvasc] 5 mg PO DAILY Discharge Medication List Aspirin EC [Ecotrin Low Dose] 81 mg PO DAILY 05/27/22 [History] Fish Oil/Dha/Epa [Fish Oil 1,200 mg Fish Oil] 1 cap PO DAILY 05/27/22 [History] Omeprazole 20 mg PO DAILY PRN 05/27/22 [History] Atorvastatin [Lipitor] 40 mg PO HS #30 tab 04/01/23 [Rx] amLODIPine [Norvasc] 10 mg PO DAILY #30 tab 04/01/23 [Rx] lisinopriL [Zestril] 20 mg PO DAILY #30 tab 04/01/23 [Rx] Follow up Appointment(s)/Referral(s): Silas Black MD [STAFF PHYSICIAN] - 1 Week Nonstaff,Physician [Primary Care Provider] - 1-2 days Discharge Disposition: HOME SELF-CARE
--- NOTE | 2023-04-01 12:13 | P.PN ---
Subjective Progress Note Date: 04/01/23 History of present illness: This is an 82-year-old male patient of Dr. Black with past medical history of hypertension, dyslipidemia, peripheral vascular disease, dementia. which is the ALLERGY. Patient denies having chest pain, no palpitations, no lightheadedness or dizziness. We have been asked to evaluate the patient for possible Mobitz type II. According to patient's nurse, he had heart rates in the 30s while he was sleeping. Patient was ordered for a Lopressor 25 mg twice daily but this was not given by the night nurse due to bradycardia. The patient does have history of alcohol abuse currently drinking 1-2 beers per week. EKG Second-degree heart block Chest x-ray:No acute process. CAT scan of the brain no acute hemorrhage or ischemia CBC is unremarkable. INR 1. A lateralized renal function normal with a creatinine of 1.04. Blood sugar 184. Liver function tests are normal. Tr oponin negative 1. Urine drug screen was negative. Home cardiac medications:Amlodipine 5 mg daily, aspirin 81 mg daily, fish oil 1 daily Echocardiogram 04/2022 revealed normal EF, tedious, mild MR. PCI history mid RCA 1996, JENNIFER in 1986, mid LAD 2007 Lexiscan 03/2020 normal EF, normal study 04/01 Telemetry remained second-degree block but heart rate is running in 70s and 80s. Reviewed overnight he did not have any episodes of 30s and 40s. Blood pressure 132/67. We were planning on event monitor but patient has underlying dementia and unable to maintain the monitor. Patient's was in agreement. Echocardiogram reveals mildly impaired left ventricle systolic function with inferior wall hypokinesis. Mild tricuspid and trace mitral regurgitation. Physical examination: Gen: This is an 82-year-old male resting in bed appears comfortable and in no acute distress VS: reviewed HEENT: Head is atraumatic, normocephalic. Pupils equal, round. Sclerae is anicteric. NECK: Supple. No JVD. LUNGS: Clear to auscultation. No wheezes or rhonchi. No intercostal retractions. HEART: Regular rate and rhythm. 2/6 SE murmur. ABDOMEN: Soft No tenderness. EXTREMITIES: No pedal edema. No calf tenderness. NEUROLOGICAL: Patient is awake, alert and oriented to person. Assessment: Second-degree heart block asymptomatic Hypertension uncontrolled Dyslipidemia Peripheral vascular disease Plan: Avoid beta blockers and calcium channel blockers, discontinue metoprolol Continue increased dose of Norvasc 10 mg daily Patient is cleared from cardiology for discharge home. Patient may follow-up in the office with Dr. Black in 1-2 weeks. Nurse practitioner note has been reviewed, I agree with documented findings and plan of care. Patient was seen and examined. Objective - Vital Signs Vital signs: Vital Signs Temp 97.8 F 03/31/23 15:30 Pulse 67 04/01/23 09:28 Resp 16 04/01/23 09:28 BP 132/67 04/01/23 09:28 Pulse Ox 97 04/01/23 09:28 FiO2 Intake & Output 03/31/23 04/01/23 04/01/23 18:59 06:59 18:59 Intake Total 720 Output Total 500 Balance 720 -500 Weight 79 kg Intake: Oral 720 Output: Urine 500 Other: # Voids 400 - Labs CBC & Chem 7: 03/30/23 10:45 03/31/23 07:42 Labs: Abnormal Lab Results - Last 24 Hours (Table) 03/31/23 Range/Units 07:42 Cholesterol 262.00 H (0.00-200.00) mg/dL LDL Cholesterol, Calc 189.4 H (0.0-131.0) mg/dL
--- NOTE | 2023-04-01 15:19 | P.PN ---
Subjective Progress Note Date: 04/01/23 On follow-up seeing the patient and he is accompanied with his . Patient feels she is doing much better. agrees that he is doing better. His blood pressure most recent around 9:00 was 130s over 60s. Patient denies of any headache, nausea vomiting any focal weakness. Objective - Vital Signs Vital signs: Vital Signs Temp 97.8 F 03/31/23 15:30 Pulse 67 04/01/23 09:28 Resp 16 04/01/23 09:28 BP 132/67 04/01/23 09:28 Pulse Ox 97 04/01/23 09:28 FiO2 Intake & Output 03/31/23 04/01/23 04/01/23 18:59 06:59 18:59 Intake Total 720 Output Total 500 Balance 720 -500 Weight 79 kg Intake: Oral 720 Output: Urine 500 Other: # Voids 400 - Exam GENERAL: The patient is sitting in a recliner chair and is not in acute distress. NEUROLOGICAL: Patient is awake alert oriented to self and place. He is able to follow simple commands. He is able to name simple objects such as pen and watch glasses. Language appear normal. No neglect. The pupils are round equal reactive to light. Visual mendes are full to confrontation. After oculomotor is intact no nystagmus is appreciated no facial weakness. No dysarthria. Motor is a strength 5 out of 5 throughout Sensation is unable to determine if there is any deficit because his cooperation Cerebellar is normal finger to nose over bilateral uppers. Some other workup during his hospital visit consisted of: Patient blood pressure in our facility is in the 200s as high as 234/163--resolved CBC with differential is unremarkable next line Chemistry panel: Glucose is 184 otherwise rest is on normal Vitamin B12 760 Folate is 5.70 which is considered low normal Ammonia level is less than 9. Urine drug screen is not detected CT the head is reported as no acute intraparenchymal hemorrhage or CT evidence for acute ischemia. Stable dilation of both lateral ventricle which may be due to cerebral atrophy versus normal pressure hydrocephalus. I personally reviewed the CT head and I agree there is no acute or subacute ischemia and there is no evidence for bleed. I feel the patient has generalized atrophy and aspect the his dilation of ventricle is more due to his a appropriate age atrophy. Carotid duplex is reported as extremely limited examination due to the patient the mental condition. Moderate atherosclerotic plaque with both carotid bulb. No hemodynamically significant stenosis of the right internal carotid artery. A pproximately 56 9% stenosis of the origin of left internal carotid artery secondary due to calcified plaque. Consider further evaluation with CTA and neck due to limitation. Non visualization of the bilateral vertebral artery. CT angiography of the head and neck is reported as extremely limited exam. There is atherosclerotic at the carotid bifurcation which is poorly visualized due to patient motion. The visualized intracranial vasculature appears grossly patent. 2-D echo was reported as mildly impaired left ventricle systolic function with inferior wall hypokinesis. Routine EEG is abnormal. The back was SUGGESTIVE of mild encephalopathy. There is no focal slowing, epileptiform discharges or seizure on the EEG. - Labs CBC & Chem 7: 03/30/23 10:45 03/31/23 07:42 Labs: Abnormal Lab Results - Last 24 Hours (Table) 03/31/23 Range/Units 07:42 Cholesterol 262.00 H (0.00-200.00) mg/dL LDL Cholesterol, Calc 189.4 H (0.0-131.0) mg/dL Assessment and Plan Assessment: This is an 82-year-old gentleman with uncontrolled hypertension and per his blood pressure runs in the 200s for years and he refuses to check his blood pressure, history of TIAs, bilateral carotid endarterectomy who presented that because of confusion and it seems that he is having speech difficulty. In our facility his blood pressure is systolic in the 230s and diastolic is a high as 160. Severe expressive aphasia: Likely hypertensive emergency---resolved once blood pressure under control. Cannot rule out underlying TIA. Hypertensive emergency blood pressure as high as 230s and diastolic is high as 160s--resolved. Underlying chronic history of hypertension and it's uncontrolled at home. Left internal carotid artery stenosis on the carotid duplex but there is limitation. Very limited on CTA. Although multiple level 5.70 History of TIAs and presents with expressive aphasia in the past in blood pressure as well as elevated History of bilateral carotid neurectomy 2 surgeries on the right 2005/2006 and one surgery on the left and 2005. History of coronary artery disease status post stent History of vascular dementia History of alcohol use and he has stopped close to a year ago History of B12 deficiency Plan: Patient is refusing to pursue with MRI. Her MRI as an outpatient. I consulted vascular surgery for the left ICA stenosis. THe CTA is very limited because of motion. Vascular recommend to follow-up as outpatient and no in dication for intervention at this time. Routine EEG: Mild encephalopathy. No seizure or discharges. Because of low normal folate I started the patient on folic acid the 1 mg daily. Patient was started on aspirin 325 mg daily by the ED team. At home he was on aspirin 81 mg. Patient was to hold off on any additional antiplatelet. I started the patient on Lipitor 40 mg daily at bedtime for secondary stroke prophylaxis Continue neuro checks Cardiac monitoring She was counseled on controlling his blood pressure at home and monitoring his blood pressure at home. We'll defer the rest of the medical management to primary team For DVT prophylaxis On subcu heparin 5000 units every 12 hours. The plan is discussed with patient, his was at bedside, primary team and his nurse. Time with Patient: Less than 30
--- NOTE | 2023-04-08 10:39 | CDI ---
Documentation Clarification Form Date: 04/08/2023 From: Yolanda Cedillo Admit Date: 03/30/2023 Patient Name: Og Mckeon Visit Number: [id number] Discharge Date: 04/01/2023 ATTENTION: The Clinical Documentation Specialists (CDI) and [facility] Coding Staff appreciate your assistance in clarifying documentation. Please respond to the clarification below the line at the bottom and electronically sign. The CDI & [facility] Coding staff will review the response and follow-up if needed. Please note: Queries are made part of the Legal Health Record. If you have any questions, please contact the author of this message via ITS. Dr. Rita Carbajal Your patient has the documented expressive aphasia as the reason for admission. Additional clarification regarding the etiology/cause of this symptom is requested. History/Risk Factors: 82yo with a history of uncontrolled HTN, vascular dementia, carotid stenosis s/p B/L carotid endarterectomies, PVD, CAD Clinical Indicators: Pt presented w/ expressive aphasia and dysarthria and HTN urgency. Per neuro PN on 04/01, severe expressive aphasia: Likely hypertensive emergency --- resolved once blood pressure under control. Cannot rule out TIA and Left internal carotid artery stenosis on the carotid duplex but there is limitation. D/C summary noted dysarthria, transient ischemic attack and stable dilatation of both lateral ventricle which may be due to cerebral atrophy versus normal pressure hydrocephalus. MRI brain patient refused, he does understand the risks that he might have had a stroke. CT brain 03/30: Stable dilatation of both lateral ventricles which may be due to cerebral atrophy versus normal pressure hydrocephalus. Non-specific white matter changes, likely secondary to chronic small vessel ischemic disease. B/L carotid duplex 03/30: (extremely limited exam, pt uncooperative) moderate atherosclerotic plaque within both carotid bulbs. Approx 50-69% stenosis of the origin of the LICA 2nd to calcified plaque. CTA head/neck 03/30: (extremely limited exam, pt moving) atherosclerosis at the carotid bifurcations which is poorly visualized d/t pt motion. EEG 03/31: abnormal background slowing suggestive of mild encephalopathy Treatment: continued vascular work-up after discharge for the carotid stenosis, Norvasc po, Lipitor po, Heparin subQ, hydralazine po, lisiniopril po, metoprolol po Please clarify all the possible etiologies of the expressive aphasia at the time of discharge: [ ] TIA 2nd to carotid stenosis [ y ] TIA 2nd to cerebral atherosclerosis [ ] HTN encephalopathy 2nd to HTN urgency [ ] Other condition (please specify) [ ] Unable to determine (Template Last Revised: September 2020) MTDD
== END 2023-04-01 12:26 | disposition home or self-care (01) | DRG 71 ==
LOC: EC 10:05 → 3SCARD 13:06
PROVIDERS: ADMIT Internal Medicine; ATTEND Internal Medicine
DX: I67.2 Cerebral atherosclerosis (principal); G45.8 Other transient cerebral ischemic attacks and related syndromes; I67.4 Hypertensive encephalopathy; R47.01 Aphasia; I16.0 Hypertensive urgency; I44.1 Atrioventricular block, second degree; F01.50 Vascular dementia, unspecified severity, without behavioral disturbance, psychotic disturbance, mood disturbance, and anxiety; I10 Essential (primary) hypertension; I25.10 Atherosclerotic heart disease of native coronary artery without angina pectoris; I65.22 Occlusion and stenosis of left carotid artery; N43.3 Hydrocele, unspecified; K21.9 Gastro-esophageal reflux disease without esophagitis; E78.5 Hyperlipidemia, unspecified; Z79.82 Long term (current) use of aspirin; Z79.899 Other long term (current) drug therapy; Z85.820 Personal history of malignant melanoma of skin; Z86.73 Personal history of transient ischemic attack (TIA), and cerebral infarction without residual deficits
CPT/HCPCS: 36415; 70450; 70496; 70498; 71045; 80048; 80053; 80061; 80306; 82140; 82607; 82746; 83036; 84484; 85025; 85610; 85730; 93005; 93306; 93880; 94760; 95816; 96374; 96375; 99285

== ENCOUNTER → 2024-05-12 | Outpatient (CLI) | payer MEDICARE ==
--- NOTE | 2024-05-12 10:34 | MR ---
EXAMINATION TYPE: MR Prostate wo/w con DATE OF EXAM: 05/12/2024 10:10 AM COMPARISON: None. CLINICAL INDICATION: Male, 83 years old with history of R97.20 ELEVATED PROSTATE SPECIFIC ANTIGEN (PS A); Elevated PSA. TECHNIQUE: Multi-planar, multi-sequence imaging of the pelvis is performed prior to and following the uncomplicated administration of bolus intravenous gadolinium. CONTRAST: 7 Gad[facility]ist Interpretive Criteria: PI-RADS v2.1 SERUM PSA: 42.510 on 04-19-24 SURGICAL PATHOLOGY: No data available. FINDINGS: Prostatic dimensions: 4.4 x 4.3 x 3.1 cm. "Bullet" Volume:38.39 (PSA density=1.11 ng/mL/mL) CENTRAL GLAND (Central and Transition Zones/CZ+TZ): Multiple bilateral, heterogenous appearing hypertrophic stromal nodules, without suspicious lesion. (PI-RADS 2) PERIPHERAL ZONE (PZ): Somewhat diffuse low T2 signal within the right prostate gland area on DWI ureters the prostate gland There is an area of low ADC higher DWI signal measuring 20 x 13 mm right mid gland and base. There i s capsular bulging with irregular capsule contour series 501 image 17. (PI-RADS 5) SEMINAL VESICLES (SV): Symmetric and unremarkable. PERIPROSTATIC TISSUES: Unremarkable. LYMPH NODES: No enlarged pelvic lymph node. REMAINING PELVIS: Bladder wall is within normal limits given distention. No abnormal free or organized intrapelvic fluid collection. No pathologic bowel dilation or mural thickening. Left fat containing inguinal hernia OSSEOUS STRUCTURES: No suspicious osseous abnormality. IMPRESSION: 1. PI-RADS 5 lesion right mid gland/base of the peripheral zone measuring 20 x 13 mm some irregular margin to the capsule in this region possibly representing invasion into the local tissues. 2. Mild BPH, estimated gland volume 38.39 mL. 3. No suspicious osseous lesion. No lymphadenopathy. No evidence of prostate adenocarcinoma involving the periprostatic tissues.
== END | disposition home or self-care (01) ==
LOC: RADMRIMAIN 08:42
PROVIDERS: ATTEND Internal Medicine
DX: R97.20 Elevated prostate specific antigen [PSA]
CPT/HCPCS: 72197

== ENCOUNTER → 2024-06-04 | Outpatient (CLI) | payer MEDICARE ==
[2024-06-04 20:26] LABS: Basophils # (A) 0.02 X 10*3/uL (0.00-0.10); Basophils % (A) 0.2 %; Eosinophils # (A) 0.04 X 10*3/uL (0.04-0.35); Eosinophils % (A) 0.4 %; HCT 45.9 % (39.6-50.0); HGB 15.5 g/dL (13.0-17.0); Lymphocytes # (A) 1.17 X 10*3/uL (0.90-5.00); Lymphocytes % (A) 12.5 %; MCH 33.3 pg (27.0-32.0); MCHC 33.8 g/dL (32.0-37.0); MCV 98.7 FL (80.0-97.0); Mean Platelet Volume 10.7 FL (9.5-12.2); Monocytes # (A) 0.54 X 10*3/uL (0.20-1.00); Monocytes % (A) 5.8 %; NRBC Per 100 WBC 0 X 10*3/uL (0.00-0.01); Neutrophils # (A) 7.46 X 10*3/uL (1.80-7.70); Neutrophils % (A) 79.6 %; Platelet Count 243 X 10*3/uL (140-440); RBC 4.65 X 10*6/uL (4.40-5.60); RDW 13.6 % (11.5-14.5); WBC 9.37 X 10*3/uL (4.50-10.00)
[2024-06-04 20:38] LABS: BUN/Creat Ratio 5.36 Ratio (12.00-20.00); Blood Urea Nitrogen 5.9 mg/dL (9.0-27.0); Chloride 97 mmol/L (96-109); Glucose 106 mg/dL (70-110); Potassium 4.3 mmol/L (3.5-5.5); Sodium 133 mmol/L (135-145)
== END | disposition home or self-care (01) ==
LOC: LABPAT 13:48
PROVIDERS: ATTEND Urology
DX: Z01.812 Encounter for preprocedural laboratory examination (principal); R97.20 Elevated prostate specific antigen [PSA]
CPT/HCPCS: 80048; 85025